=== PATIENT | female | born 1990 | race African-American/Black ===

== ENCOUNTER 2017-09-05 06:20 | Emergency (ER) | payer SELFPAY ==
--- NOTE | 2017-09-05 07:19 | ER ---
Nurse's Notes [facility] Name: Ember Clark Age: 26 yrs Sex: Female : 1990 Arrival Date: 09/05/2017 Time: : Bed 8 Private MD: Diagnosis: Viral infection, unspecified Presentation: 09/05 06:27 Presenting complaint: Patient states: productive cough and congestion x 3 days. aa1 Transition of care: patient was not received from another setting of care. Onset of symptoms was September 03, 2017. Care prior to arrival: None. 06:27 Method Of Arrival: Ambulatory aa1 06:27 Acuity: MIKKI 4 aa1 Triage Assessment: 06:28 General: Appears in no apparent distress. comfortable, Behavior is calm, cooperative, aa1 appropriate for age. 06:48 Pain: Complains of pain in chest pain with cough, throat pain, body aches. EENT: Nares ak1 are clear Throat is clear. Neuro: No deficits noted. Cardiovascular: No deficits noted. Respiratory: Reports cough that is productive, since Tuesday09/03/17. GI: No signs and/or symptoms were reported involving the gastrointestinal system. : No signs and/or symptoms were reported regarding the genitourinary system. Derm: No signs and/or symptoms reported regarding the dermatologic system. Musculoskeletal: Reports body aches. 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 - Social history:: Smoking status: Patient uses tobacco products, denies chronic smoking, but will smoke occasionally. Screenin:42 Abuse screen: Denies threats or abuse. Denies injuries from another. Nutritional ak1 screening: No deficits noted. Tuberculosis screening: No symptoms or risk factors identified. Fall Risk None identified. Assessment: 06:50 Reassessment: Patient appears in no apparent distress at this time. No changes from ak1 previously documented assessment. Patient is alert, oriented x 3, equal unlabored respirations, skin warm/dry/pink. see triage assessment. 07:04 Reassessment: report given to Rickey Tamez RN and Sis Fam RN. ak1 07:31 Reassessment: Patient appears in no apparent distress at this time. No changes from previously documented assessment. Patient and/or family updated on plan of care and expected duration. Pain level reassessed. Patient is alert, oriented x 3, equal unlabored respirations, skin warm/dry/pink. Vital Signs: 06:28 BP 120 / 87; Pulse 94; Resp 18; Temp 98.2; Pulse Ox 100% on R/A; Weight 56.7 kg; Height aa1 5 ft. 1 in. (154.94 cm); 07:32 BP 112 / 78; Pulse 88; Resp 18; Pulse Ox 99% ; sv 06:28 Body Mass Index 23.62 (56.70 kg, 154.94 cm) aa1 ED Course: 06:22 Patient arrived in ED. am2 06:27 [facility] Reyn[facility]-C [facility] snw 06:27 Yaw Petit MD is Attending Physician. snw 06:27 Triage completed. aa1 06:28 Arm band placed on left wrist. Patient placed in an exam room, on a stretcher. aa1 06:39 Chest Pa And Lat (2 Views) XRAY In Process Unspecified. EDMS 06:42 Patient has correct armband on for positive identification. Bed in low position. Call ak1 light in reach. Side rails up X 1. Pulse ox on. NIBP on. 06:45 Flu and/or RSV swab sent to lab. Strep swab sent to lab. ak1 06:47 No provider procedures requiring assistance completed. ak1 07:14 Sis Major RN is Primary Nurse. sv 07:15 Throat Culture Sent. sv 07:31 Patient did not have IV access during this emergency room visit. sv Administered Medications: No medications were administered Outcome: 07:18 Discharge ordered by MD. snw 07:32 Discharged to home ambulatory. sv 07:32 Condition: stable 07:32 Discharge instructions given to patient, Instructed on discharge instructions, follow up and referral plans. medication usage, Demonstrated understanding of instructions, follow-up care, medications, Prescriptions given X 2. 07:32 Patient left the ED. sv Signatures: Dispatcher [facility] Sis Major RN RN sv Gay, Steven, RN RN Lucy Jaramillo RN RN aa1 Iris Reynaga, CANCER REGISTRAR-C CANCER REGISTRAR-Csnw Janina Lemons RN RN ak1 Tawny Esquivel am2 Corrections: (The following items were deleted from the chart) 07:08 07:08 Reassessment: tristian lubin
--- NOTE | 2017-09-05 07:19 | EDPHYS ---
Physician Documentation [facility] Name: Ember Clark Age: 26 yrs Sex: Female : 1990 Arrival Date: 09/05/2017 Time: :22 Bed 8 Private MD: ED Physician Yaw Petit HPI: 09/05 06:30 This 26 yrs old Black Female presents to ER via Ambulatory with complaints of Cough, snw Chest Congestion, Chills. 06:30 The patient or guardian reports airway noise, cough, with productive sputum, that is snw yellow. Onset: The symptoms/episode began/occurred suddenly, 2 day(s) ago, and became persistent. Severity of symptoms: At their worst the symptoms were moderate. Associated signs and symptoms: Pertinent positives: chills. It is unknown whether or not the patient has had similar symptoms in the past. The patient has not recently seen a physician. flu like s/s, rec'd flu shot. 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 - Social history:: Smoking status: Patient uses tobacco products, denies chronic smoking, but will smoke occasionally. ROS: 06:29 Eyes: Negative for injury, pain, redness, and discharge, ENT: Negative for injury, snw pain, and discharge, Neck: Negative for injury, pain, and swelling, Cardiovascular: Negative for chest pain, palpitations, and edema. 06:29 Abdomen/GI: Negative for abdominal pain, nausea, vomiting, diarrhea, and constipation, Back: Negative for injury and pain, : Negative for injury, bleeding, discharge, and swelling, MS/Extremity: Negative for injury and deformity, Skin: Negative for injury, rash, and discoloration, Neuro: Negative for headache, weakness, numbness, tingling, and seizure. 06:29 Constitutional: Positive for body aches, chills, fatigue, malaise, poor PO intake. 06:29 Respiratory: Positive for cough, with yellow sputum. Exam: 06:29 Head/Face: Normocephalic, atraumatic. Eyes: Pupils equal round and reactive to light, snw extra-ocular motions intact. Lids and lashes normal. Conjunctiva and sclera are non-icteric and not injected. Cornea within normal limits. Periorbital areas with no swelling, redness, or edema. ENT: Nares patent. No nasal discharge, no septal abnormalities noted. Tympanic membranes are normal and external auditory canals are clear. Oropharynx with no redness, swelling, or masses, exudates, or evidence of obstruction, uvula midline. Mucous membranes moist. Neck: Trachea midline, no thyromegaly or masses palpated, and no cervical lymphadenopathy. Supple, full range of motion without nuchal rigidity, or vertebral point tenderness. No Meningismus. Chest/axilla: Normal chest wall appearance and motion. Nontender with no deformity. No lesions are appreciated. Cardiovascular: Regular rate and rhythm with a normal S1 and S2. No gallops, murmurs, or rubs. Normal PMI, no JVD. No pulse deficits. Respiratory: Lungs have equal breath sounds bilaterally, clear to auscultation and percussion. No rales, rhonchi or wheezes noted. No increased work of breathing, no retractions or nasal flaring. Abdomen/GI: Soft, non-tender, with normal bowel sounds. No distension or tympany. No guarding or rebound. No evidence of tenderness throughout. Back: No spinal tenderness. No costovertebral tenderness. Full range of motion. Skin: Warm, dry with normal turgor. Normal color with no rashes, no lesions, and no evidence of cellulitis. MS/ Extremity: Pulses equal, no cyanosis. Neurovascular intact. Full, normal range of motion. Neuro: Awake and alert, GCS 15, oriented to person, place, time, and situation. Cranial nerves II-XII grossly intact. Motor strength 5/5 in all extremities. Sensory grossly intact. Cerebellar exam normal. Normal gait. 06:29 Constitutional: The patient appears alert, awake, restless, uncomfortable, tearful Vital Signs: 06:28 BP 120 / 87; Pulse 94; Resp 18; Temp 98.2; Pulse Ox 100% on R/A; Weight 56.7 kg; Height aa1 5 ft. 1 in. (154.94 cm); 07:32 BP 112 / 78; Pulse 88; Resp 18; Pulse Ox 99% ; sv 06:28 Body Mass Index 23.62 (56.70 kg, 154.94 cm) aa1 MDM: 06:27 Patient medically screened. snw 07:19 Data reviewed: vital signs, nurses notes. Data interpreted: Pulse oximetry: on room air snw is 100 %. Interpretation: normal. Counseling: I had a detailed discussion with the patient and/or guardian regarding: the historical points, exam findings, and any diagnostic results supporting the discharge/admit diagnosis, the need for outpatient follow up, to return to the emergency department if symptoms worsen or persist or if there are any questions or concerns that arise at home. Counseling: I had a detailed discussion with the patient and/or guardian regarding: smoking cessation. Special discussion: I have referred the patient to see his PCP for further evaluation of high blood pressure. Based on the history and exam findings, there is no indication for further emergent testing or inpatient evaluation. I discussed with the patient/guardian the need to see the primary care provider for further evaluation of the symptoms. 07:19 Response to treatment: pt upset she is not getting pain medications upon discharge. snw 09/05 06:28 Order name: Flu; Complete Time: 07:17 snw 09/05 06:28 Order name: Strep; Complete Time: 07:17 snw 09/05 06:28 Order name: Chest Pa And Lat (2 Views) XRAY snw 09/05 07:14 Order name: Throat Culture EDMS Administered Medications: No medications were administered Disposition: 09/05/17 07:18 Discharged to Home. Impression: Viral infection, unspecified. - Condition is Stable. - Discharge Instructions: Fever, Adult, Viral Infections. - Prescriptions for Diclofenac Sodium 75 mg Oral Tablet Sustained Release - take 1 tablet by ORAL route 2 times per day; 30 tablet. orphenadrine citrate 100 mg Oral Tablet Sustained Release - take 1 tablet by ORAL route 2 times per day As needed; 20 tablet. - Work release form, Medication Reconciliation Form, Thank You Letter, Antibiotic Education, Prescription Opioid Use form. - Follow up: Private Physician; When: 2 - 3 days; Reason: Recheck today's complaints, Continuance of care, Re-evaluation by your physician. Follow up: Emergency Department; When: As needed; Reason: Worsening of condition. Addendum: 09/08/2017 02:51 Co-signature as Attending Physician, Yaw Petit MD. g s Signatures: Dispatcher [employer] Sis Tran RN RN sv Lucy Thomas RN RN aa1 Iris Reynaga, LITIGATION SPECIALIST-C LITIGATION SPECIALIST-Csnw Yaw Petit MD MD gs
[2017-09-05 07:38] VITALS: TEMP 98.2
[2017-09-05 07:39] VITALS: BP 112/78; O2SAT 99
--- NOTE | 2017-09-05 08:47 | RAD REPORT ---
EXAM DESCRIPTION: RAD - Chest Pa And Lat (2 Views) - 09/05/2017 6:40 am CLINICAL HISTORY: Productive cough and congestion COMPARISON: 05/11/2017 FINDINGS: The lungs are clear. The heart is normal in size. No displaced fractures. IMPRESSION: No acute or concerning finding suspected.
== END 2017-09-05 07:32 | disposition home or self-care (01) ==
LOC: ER 06:20
DX: B34.9 Viral infection, unspecified (principal); Z72.0 Tobacco use
CPT/HCPCS: 71046; 87070; 87081; 87804; 99284

== ENCOUNTER 2018-03-08 09:59 | Emergency (ER) | payer SELFPAY ==
--- NOTE | 2018-03-08 10:33 | EKG ---
Test Date: 2018-03-08 Test Time: 10:11:34 Director Media: BASIL MEASUREMENT RESULTS: Intervals: Rate: 74 [place]: 142 QRSD: 78 QT: 402 QTc: 446 [place]: P: 84 [place]: 142 QRS: 86 T: 75 INTERPRETIVE STATEMENTS: Normal sinus rhythm Right atrial enlargement Borderline ECG Compared to ECG 05/11/2017 08:39:11 Atrial abnormality now present Electronically Signed On 03-08-18 10:32:25 CDT by Noel Bauman
[2018-03-08 11:02] LABS: Urine Blood 1+ (NEG); Urine Glucose NEGATIVE (NEG); Urine Protein NEGATIVE (NEG); Urine pH 5.5 (5.0-7.0)
[2018-03-08] MEDS ORDERED: NA CHLORIDE 0.9% 1,000 ML ONE (11:04)
[2018-03-08] MEDS ORDERED: ONDANSETRON 4 MG/2 ML VIAL ONE (11:04)
[2018-03-08 11:17] LABS: BUN Blood Urea Nitrogen 12 mg/dL (7-18); Bicarbonate 27 mmol/L (21-32); Glucose Level 82 mg/dL (74-106); Potassium 3.5 mmol/L (3.5-5.1); Sodium Level 139 mmol/L (136-145)
--- NOTE | 2018-03-08 11:50 | EDPHYS ---
Physician Documentation [facility] Name: Ember Clark Age: 27 yrs Sex: Female : 1990 Arrival Date: 03/08/2018 Time: 10:01 Bed 7 Private MD: out of town, doctor ED Physician Gil Galindo HPI: 03/08 10:59 This 27 yrs old Black Female presents to ER via Ambulatory with complaints of Vomiting, rn Chest Pain, Headache. 10:59 The patient presents to the emergency department with nausea, vomiting, diarrhea. rn Onset: The symptoms/episode began/occurred 2 day(s) ago. Possible causes: unknown. The symptoms are aggravated by nothing. The symptoms are alleviated by nothing. Severity of symptoms: At their worst the symptoms were moderate in the emergency department the symptoms are unchanged. The patient has experienced a previous episode. Reports nausea/vomiting that began 2 days ago, now non-bloody diarrhea for 1 day, reports chills, fatigue, headache, no known sick contacts but works at [employer]. No fever. No trauma. Headache began today. . 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 - Social history:: Smoking status: Patient uses tobacco products, denies chronic smoking, but will smoke occasionally, Patient uses alcohol, occasionally. - Ebola Screening: : Patient negative for fever greater than or equal to 101.5 degrees Fahrenheit, and additional compatible Ebola Virus Disease symptoms Patient denies exposure to infectious person Patient denies travel to an Ebola-affected area in the 21 days before illness onset No symptoms or risks identified at this time. - Family history:: not pertinent. - Hospitalizations: : No recent hospitalization is reported. ROS: 10:59 Constitutional: Negative for fever, and weight loss, Eyes: Negative for injury, pain, rn redness, and discharge, Neck: Negative for injury, pain, and swelling, Cardiovascular: Negative for chest pain, palpitations, and edema, Respiratory: Negative for shortness of breath, cough, wheezing, and pleuritic chest pain, Abdomen/GI: Negative for abdominal pain, and constipation, MS/Extremity: Negative for injury and deformity, Skin: Negative for injury, rash, and discoloration, Neuro: Negative for numbness, tingling, and seizure. Exam: 10:59 Constitutional: This is a well developed, well nourished patient who is awake, alert, rn and in no acute distress. Head/Face: Normocephalic, atraumatic. Eyes: Pupils equal round and reactive to light, extra-ocular motions intact. Lids and lashes normal. Conjunctiva and sclera are non-icteric and not injected. Cornea within normal limits. Periorbital areas with no swelling, redness, or edema. ENT: MMM Neck: Non-tender cervical LAD Cardiovascular: Regular rate and rhythm with a normal S1 and S2. No gallops, murmurs, or rubs. Normal PMI, no JVD. No pulse deficits. Respiratory: Lungs have equal breath sounds bilaterally, clear to auscultation and percussion. No rales, rhonchi or wheezes noted. No increased work of breathing, no retractions or nasal flaring. Abdomen/GI: soft, non-tender Skin: Warm, dry with normal turgor. Normal color with no rashes, no lesions, and no evidence of cellulitis. MS/ Extremity: Pulses equal, no cyanosis. Neurovascular intact. Full, normal range of motion. Equal circumference. Neuro: Awake and alert, GCS 15, oriented to person, place, time, and situation. Cranial nerves II-XII grossly intact. Motor strength 5/5 in all extremities. Sensory grossly intact. Cerebellar exam normal. Normal gait. Vital Signs: 10:09 BP 127 / 82; Pulse 98; Resp 18; Temp 97.9; Pulse Ox 100% on R/A; Weight 58.97 kg; aj Height 5 ft. 1 in. (154.94 cm); 11:00 BP 131 / 87; Pulse 55; Resp 14; Pulse Ox 100% ; bp 11:21 BP 131 / 88; Pulse 55; Resp 16; Pulse Ox 100% ; bp 11:38 BP 128 / 89; Pulse 51; Resp 14; Pulse Ox 100% ; bp 10:09 Body Mass Index 24.56 (58.97 kg, 154.94 cm) aj MDM: 10:40 Patient medically screened. rn 11:48 Differential diagnosis: viral gastroenteritis, gastroenteritis, mono, flu, strep. Data rn reviewed: vital signs, nurses notes, lab test result(s), and as a result, I will discharge patient. Counseling: I had a detailed discussion with the patient and/or guardian regarding: the historical points, exam findings, and any diagnostic results supporting the discharge/admit diagnosis, lab results, the need for outpatient follow up, to return to the emergency department if symptoms worsen or persist or if there are any questions or concerns that arise at home. Response to treatment: the patient's symptoms have mildly improved after treatment, and as a result, I will discharge patient. Special discussion: I discussed with the patient/guardian in detail that at this point there is no indication for admission to the hospital. It is understood, however, that if the symptoms persist or worsen the patient needs to return immediately for re-evaluation. 03/08 10:13 Order name: Flu; Complete Time: 11:23 aj 03/08 10:13 Order name: Strep; Complete Time: 11:23 aj 03/08 10:36 Order name: Throat Culture EDSC 03/08 10:46 Order name: BMP; Complete Time: 11:23 rn 03/08 10:46 Order name: [place] Screen Profile; Complete Time: 11:43 rn 03/08 10:53 Order name: Urine Dipstick--Ancillary (enter results); Complete Time: 11:23 eb 03/08 10:07 Order name: EKG; Complete Time: 10:08 aj 03/08 10:45 Order name: IV Start; Complete Time: 10:54 rn 03/08 10:46 Order name: Urine Test (obtain specimen); Complete Time: 10:53 rn 03/08 10:46 Order name: Urine Dipstick-Ancillary (obtain specimen); Complete Time: 10:53 rn 03/08 10:53 Order name: Urine --Ancillary (enter results); Complete Time: 11:23 eb Administered Medications: 11:00 Drug: NS 0.9% 1000 ml Route: IV; Rate: 1000 ml; Site: right antecubital; bp 11:59 Follow up: IV Status: Completed infusion; IV Intake: 1000ml bp 11:00 Drug: Zofran 4 mg Route: IVP; Site: right antecubital; bp 11:21 Follow up: Response: No adverse reaction bp Disposition: 03/08/18 11:49 Discharged to Home. Impression: Infectious mononucleosis. - Condition is Stable. - Discharge Instructions: Infectious Mononucleosis. - Medication Reconciliation Form, Thank You Letter, Antibiotic Education, Prescription Opioid Use, Work release form form. - Follow up: Private Physician; When: As needed; Reason: Recheck today's complaints, Re-evaluation by your physician. - Problem is new. - Symptoms have improved. Signatures: Dispatcher [employer] Tawny Smith RN Gil Vaughn MD MD rn Peltier, Brian, RN RN bp Corrections: (The following items were deleted from the chart) 11:58 11:49 03/08/2018 11:49 Discharged to Home. Impression: Infectious mononucleosis. bp Condition is Stable. Forms are Medication Reconciliation Form, Thank You Letter, Antibiotic Education, Prescription Opioid Use. Follow up: Private Physician; When: As needed; Reason: Recheck today's complaints, Re-evaluation by your physician. Problem is new. Symptoms have improved. rn
--- NOTE | 2018-03-08 11:50 | ER ---
Nurse's Notes [facility] Name: Ember Clark Age: 27 yrs Sex: Female : 1990 Arrival Date: 03/08/2018 Time: 10:01 Bed 7 Private MD: out of town, doctor Diagnosis: Infectious mononucleosis Presentation: 03/08 10:08 Presenting complaint: Patient states: Vomiting x 4 episodes, chills, chest pain, and aj headache that started today. Transition of care: patient was not received from another setting of care. Onset of symptoms was March 08, 2018. Risk Assessment: Do you want to hurt yourself or someone else? Patient reports no desire to harm self or others. Initial Sepsis Screen: Does the patient meet any 2 criteria? No. Patient's initial sepsis screen is negative. Does the patient have a suspected source of infection? No. Patient's initial sepsis screen is negative. Care prior to arrival: None. 10:08 Method Of Arrival: Ambulatory aj 10:08 Acuity: MIKKI 3 aj Triage Assessment: 10:09 General: Appears in no apparent distress. comfortable, Behavior is calm, cooperative, aj appropriate for age. Pain: Complains of pain in face and chest. Neuro: Level of Consciousness is awake, alert, obeys commands, Oriented to person, place, time, situation, Appropriate for age. Cardiovascular: Reports chest pain, vomiting, Capillary refill < 3 seconds in bilateral fingers Patient's skin is warm and dry. Respiratory: Airway is patent Trachea midline Respiratory effort is even, unlabored. GI: Reports nausea, vomiting. Derm: Skin is intact, is healthy with good turgor, Skin is pink, warm \T\ dry. normal. 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 - Social history:: Smoking status: Patient uses tobacco products, denies chronic smoking, but will smoke occasionally, Patient uses alcohol, occasionally. - Ebola Screening: : Patient negative for fever greater than or equal to 101.5 degrees Fahrenheit, and additional compatible Ebola Virus Disease symptoms Patient denies exposure to infectious person Patient denies travel to an Ebola-affected area in the 21 days before illness onset No symptoms or risks identified at this time. - Family history:: not pertinent. - Hospitalizations: : No recent hospitalization is reported. Screenin:04 Abuse screen: Denies threats or abuse. Denies injuries from another. Nutritional bp screening: No deficits noted. Tuberculosis screening: No symptoms or risk factors identified. Fall Risk None identified. Assessment: 10:10 General: Appears in no apparent distress. comfortable, slender, Behavior is bp cooperative, appropriate for age, anxious. Pain: Complains of pain in chest and face. Neuro: Level of Consciousness is awake, alert, obeys commands, Oriented to person, place, time, situation, Appropriate for age. Cardiovascular: No deficits noted. Respiratory: Airway is patent Respiratory effort is even, unlabored, Respiratory pattern is regular, symmetrical. GI: Reports nausea, vomiting. GI: Abdomen is non-distended, Abd is soft X 4 quads. : No signs and/or symptoms were reported regarding the genitourinary system. EENT: No deficits noted. Derm: No signs and/or symptoms reported regarding the dermatologic system. Musculoskeletal: Circulation, motion, and sensation intact. Range of motion: intact in all extremities. 11:21 Reassessment: ALL CURRENT ORDERS COMPLETED, VS STABLE ON MONITOR. bp 11:57 Reassessment: PT D/C HOME AMBULATORY, DX WITH MONONUCLEOSIS. bp Vital Signs: 10:09 BP 127 / 82; Pulse 98; Resp 18; Temp 97.9; Pulse Ox 100% on R/A; Weight 58.97 kg; aj Height 5 ft. 1 in. (154.94 cm); 11:00 BP 131 / 87; Pulse 55; Resp 14; Pulse Ox 100% ; bp 11:21 BP 131 / 88; Pulse 55; Resp 16; Pulse Ox 100% ; bp 11:38 BP 128 / 89; Pulse 51; Resp 14; Pulse Ox 100% ; bp 10:09 Body Mass Index 24.56 (58.97 kg, 154.94 cm) aj ED Course: 10:01 Patient arrived in ED. mr 10:01 out of town, doctor is Private Physician. mr 10:09 Triage completed. aj 10:09 Arm band placed on left wrist. Patient placed in waiting room, Patient notified of wait aj time. EKG completed in triage. Results shown to MD. Labs ordered per protocol. 10:16 EKG done, by certified control systems technician. reviewed by Gil Galindo MD. at1 10:31 Bryan Bower RN is Primary Nurse. bp 10:40 Gil Galindo MD is Attending Physician. rn 10:47 Throat Culture Sent. bp 10:50 Inserted saline lock: 20 gauge in right antecubital area, using aseptic technique. bp 10:52 Urine collected: clean catch specimen, clear. dh3 11:04 Patient has correct armband on for positive identification. Bed in low position. Call bp light in reach. Side rails up X2. 11:58 No provider procedures requiring assistance completed. IV discontinued, intact, bp bleeding controlled, No redness/swelling at site. Pressure dressing applied. Administered Medications: 11:00 Drug: NS 0.9% 1000 ml Route: IV; Rate: 1000 ml; Site: right antecubital; bp 11:59 Follow up: IV Status: Completed infusion; IV Intake: 1000ml bp 11:00 Drug: Zofran 4 mg Route: IVP; Site: right antecubital; bp 11:21 Follow up: Response: No adverse reaction bp Intake: 11:59 IV: 1000ml; Total: 1000ml. bp Outcome: 11:49 Discharge ordered by MD. rn 11:58 Discharged to home ambulatory. bp 11:58 Condition: stable 11:58 Discharge instructions given to patient, Instructed on discharge instructions, follow up and referral plans. Demonstrated understanding of instructions, follow-up care. 11:58 Patient left the ED. bp Signatures: Tawny Mcclendon RN Vanessa Allison mr Gil Galindo MD MD rn Gonzales, Amanda, interactive developer EKG Tat1 Alma Ragland [facility] Bryan Bower, RN RN bp
[2018-03-08 12:08] VITALS: TEMP 97.9; O2SAT 100
[2018-03-08 12:12] VITALS: BP 128/89
== END 2018-03-08 11:58 | disposition home or self-care (01) ==
LOC: ER 09:59
DX: B27.90 Infectious mononucleosis, unspecified without complication (principal); Z72.0 Tobacco use
CPT/HCPCS: 36415; 80048; 81003; 81025; 86308; 87070; 87081; 87804; 93005; 96361; 96374; 99284; J2405; J7030

== ENCOUNTER 2018-03-17 07:15 | Emergency (ER) | payer SELFPAY ==
[2018-03-17] MEDS ORDERED: IBUPROFEN 400 MG TAB ONE (07:46)
[2018-03-17 07:50] LABS: Absolute Lymphocytes (CBC) 1.5 K/uL (0.7-4.9); Absolute Monocytes 0.4 K/uL (0.1-1.3); Absolute Neutrophil 2.8 K/uL (1.8-8.0); Basophils % 1.5 % (0-1.3); Eosinophils % 1.7 % (0-4.4); Hematocrit 36.6 % (36.0-45.0); Lymphocytes % 30.1 % (15.3-44.8); MCH 21.5 pg (27.0-35.0); MCV 69.6 fL (80-100); MPV 8.9 fL (7.6-11.3); Monocytes % 9.3 % (3.3-12.3); RBC Red Blood Cell Count 5.25 M/uL (3.86-4.86)
[2018-03-17 08:07] LABS: BUN Blood Urea Nitrogen 16 mg/dL (7-18); Bicarbonate 29 mmol/L (21-32); Glucose Level 169 mg/dL (74-106); Potassium 3.2 mmol/L (3.5-5.1); Sodium Level 134 mmol/L (136-145); Troponin (Emerg Dept Use Only) < 0.02 ng/mL (0.0-0.045)
--- NOTE | 2018-03-17 09:07 | RAD REPORT ---
EXAM DESCRIPTION: RAD - Chest Single View - 03/17/2018 8:01 am CLINICAL HISTORY: Chest pain COMPARISON: August 2017 TECHNIQUE: AP portable chest image was obtained 0754 hours . FINDINGS: Lungs are clear. Heart and vasculature are normal. No measurable pleural effusion and no p neumothorax. No acute bony abnormality seen. No acute aortic findings suspected. IMPRESSION: No acute cardiopulmonary process. No significant change from comparison.
[2018-03-17] MEDS ORDERED: POTASSIUM CL SA 10 MEQ TAB PO ONE (09:10)
--- NOTE | 2018-03-17 09:12 | ER ---
Nurse's Notes [facility] Name: Ember Clark Age: 27 yrs Sex: Female : 1990 Arrival Date: 03/17/2018 Time: 07:20 Bed 17 Private MD: None, None Diagnosis: Chest pain, unspecified Presentation: 03/17 07:28 Presenting complaint: Patient states: Chest tightness and MUNIZ, worse since Tuesday. jl7 Transition of care: patient was not received from another setting of care. Onset of symptoms was March 14, 2018. Risk Assessment: Do you want to hurt yourself or someone else? Patient reports no desire to harm self or others. Initial Sepsis Screen: Does the patient meet any 2 criteria? No. Patient's initial sepsis screen is negative. Does the patient have a suspected source of infection? No. Patient's initial sepsis screen is negative. Care prior to arrival: None. 07:28 Method Of Arrival: Ambulatory [facility] 07:28 Acuity: MIKKI 3 jl7 Triage Assessment: 07:32 General: Appears in no apparent distress. uncomfortable, Behavior is cooperative, jl7 anxious. Pain: Complains of pain in chest \\T\\ MUNIZ Pain currently is 10 out of 10 on a pain scale. Quality of pain is described as pressure, sharp, Is intermittent. EENT: No signs and/or symptoms were reported regarding the EENT system. Neuro: Level of Consciousness is awake, alert, obeys commands, Oriented to person, place, time, situation. Cardiovascular: Heart tones S1 S2 present Patient's skin is warm and dry. Respiratory: Airway is patent Respiratory effort is even, unlabored, Respiratory pattern is regular, symmetrical. GI: No signs and/or symptoms were reported involving the gastrointestinal system. : No signs and/or symptoms were reported regarding the genitourinary system. Derm: Skin is pink, warm \\T\\ dry. Musculoskeletal: No signs and/or symptoms reported regarding the musculoskeletal system. 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 - Ebola Screening: : No symptoms or risks identified at this time. - Family history:: not pertinent. - Social history:: Smoking status: Patient/guardian denies using tobacco. - Hospitalizations: : No recent hospitalization is reported. Screenin:36 Abuse screen: Denies threats or abuse. Denies injuries from another. Nutritional jl7 screening: No deficits noted. Tuberculosis screening: No symptoms or risk factors identified. Fall Risk IV access (20 points). Total Aldridge Fall Scale indicates No Risk (0-24 pts). Assessment: 07:35 General: Appears See Triage assessment. Pain: Complains of pain in chest Pain does not jl7 radiate. Pain began a week or two ago. 07:41 Reassessment: Pt states "There's no baby in there, I had my tubes tied." Provider jl7 notified and UPT cancelled. 08:30 Reassessment: Patient appears in no apparent distress at this time. Patient and/or jl7 family updated on plan of care and expected duration. Pain level reassessed. Patient is alert, oriented x 3, equal unlabored respirations, skin warm/dry/pink. Vital Signs: 07:32 BP 127 / 91; Pulse 73; Resp 18 S; Temp 98.3(O); Pulse Ox 100% on R/A; Weight 58.51 kg jl7 (R); Pain 10/10; 08:30 BP 120 / 83; Pulse 70; Resp 14 S; Pulse Ox 100% on R/A; jl7 09:22 BP 120 / 82; Pulse 72; Resp 16 S; Pulse Ox 100% on R/A; jl7 ED Course: 07:20 Patient arrived in ED. mr 07:20 None, None is Private Physician. mr 07:22 Gil Galindo MD is Attending Physician. rn 07:28 Ifrah Manrique RN is Primary Nurse. jl7 07:29 Triage completed. jl7 07:32 Arm band placed on right wrist. jl7 07:36 Patient has correct armband on for positive identification. Bed in low position. Call jl7 light in reach. Side rails up X 1. assembly machine feeder on. Pulse ox on. NIBP on. Warm blanket given. 07:36 No provider procedures requiring assistance completed. Patient maintains SpO2 jl7 saturation greater than 95% on room air. 07:41 Initial lab(s) drawn, by me, sent to lab. Inserted saline lock: 22 gauge in right dh3 antecubital area, using aseptic technique. Blood collected. 07:47 EKG done, by agricultural engineering technologist. reviewed by Gil Galindo MD. at1 07:58 X-ray completed. Portable x-ray completed in exam room. Patient tolerated procedure jb2 well. 08:01 XRAY Chest (1 view) In Process Unspecified. EDMS 09:22 IV discontinued, intact, bleeding controlled, No redness/swelling at site. Pressure jl7 dressing applied. Administered Medications: 07:41 Drug: Ibuprofen 800 mg Route: PO; jl7 08:30 Follow up: Response: No adverse reaction jl7 09:09 Drug: Potassium Chloride 40 mEq Route: PO; em 09:22 Follow up: Response: No adverse reaction jl7 Outcome: 09:11 Discharge ordered by . rn 09:22 Discharged to home ambulatory. jl7 09:22 Condition: stable 09:22 Discharge instructions given to patient, Instructed on discharge instructions, follow up and referral plans. Demonstrated understanding of instructions, follow-up care. 09:23 Patient left the ED. jl7 Signatures: Dispatcher [employer] KACEY McmahonVanessa constantino mr CaJacob jb2 Juanito Kulkarni, RECYCLING ASSISTANT RECYCLING ASSISTANT Gil Frias MD MD rn Gonzales, Amanda, search marketing specialist EKG Tat1 Ifrah Manrique RN RN jl7 Alma Ragland [facility]
--- NOTE | 2018-03-17 09:12 | EDPHYS ---
Physician Documentation [facility] Name: Ember Clark Age: 27 yrs Sex: Female : 1990 Arrival Date: 03/17/2018 Time: 07:20 Bed 17 Private MD: None, None ED Physician Gil Galindo HPI: 03/17 07:31 This 27 yrs old Black Female presents to ER via Ambulatory with complaints of Chest rn Tightness, Headache. 07:31 The patient or guardian reports chest pain that is located primarily in the substernal rn area. The pain does not radiate. Associated signs and symptoms: Pertinent positives: headache, Pertinent negatives: abdominal pain, cough, diaphoresis, dizziness, lightheadedness, nausea, near syncope, palpitations, recent travel, shortness of breath, syncope, vomiting. The chest pain is described as a heaviness, sharp. Duration: The patient or guardian reports multiple episodes, that are intermittent. Modifying factors: The symptoms are alleviated by nothing. the symptoms are aggravated by nothing. Severity of pain: At its worst the pain was moderate in the emergency department the pain is unchanged. The patient has experienced similar episodes in the past. Reports chest pain, intermittent, central, feels daily, has been seen multiple times for this in past, no diagnosis, hasn't followed up with cardiology. No fever/cough. + recent diagnosis of mono, + headache. Just seen by DEPUTY SHERIFF GENERALIST/BAILIFF this week, started on amlodipine. Reports tested and neg preg. . 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 - Ebola Screening: : No symptoms or risks identified at this time. - Family history:: not pertinent. - Social history:: Smoking status: Patient/guardian denies using tobacco. - Hospitalizations: : No recent hospitalization is reported. ROS: 07:31 Constitutional: Negative for fever, chills, and weight loss, Eyes: Negative for injury, rn pain, redness, and discharge, Cardiovascular: Negative for palpitations, and edema Respiratory: Negative for shortness of breath, cough, wheezing, and pleuritic chest pain, Abdomen/GI: Negative for abdominal pain, nausea, vomiting, diarrhea, and constipation, MS/Extremity: Negative for injury and deformity, Skin: Negative for injury, rash, and discoloration, Neuro: Negative for weakness, numbness, tingling, and seizure. Exam: 07:31 Constitutional: This is a well developed, well nourished patient who is awake, alert, rn and in no acute distress. Walked to room without difficulty. Head/Face: Normocephalic, atraumatic. Eyes: Pupils equal round and reactive to light, extra-ocular motions intact. Lids and lashes normal. Conjunctiva and sclera are non-icteric and not injected. Cornea within normal limits. Periorbital areas with no swelling, redness, or edema. Cardiovascular: Regular rate and rhythm with a normal S1 and S2. No gallops, murmurs, or rubs. Normal PMI, no JVD. No pulse deficits. Respiratory: Lungs have equal breath sounds bilaterally, clear to auscultation and percussion. No rales, rhonchi or wheezes noted. No increased work of breathing, no retractions or nasal flaring. Abdomen/GI: Soft, non-tender, with normal bowel sounds. No distension or tympany. No guarding or rebound. No evidence of tenderness throughout. Skin: Warm, dry with normal turgor. Normal color with no rashes, no lesions, and no evidence of cellulitis. MS/ Extremity: Pulses equal, no cyanosis. Neurovascular intact. Full, normal range of motion. Equal circumference. Neuro: Awake and alert, GCS 15, oriented to person, place, time, and situation. Cranial nerves II-XII grossly intact. Motor strength 5/5 in all extremities. Sensory grossly intact. Cerebellar exam normal. Normal gait. 09:09 ECG was reviewed by the Attending Physician. rn Vital Signs: 07:32 BP 127 / 91; Pulse 73; Resp 18 S; Temp 98.3(O); Pulse Ox 100% on R/A; Weight 58.51 kg jl7 (R); Pain 10/10; 08:30 BP 120 / 83; Pulse 70; Resp 14 S; Pulse Ox 100% on R/A; jl7 09:22 BP 120 / 82; Pulse 72; Resp 16 S; Pulse Ox 100% on R/A; jl7 MDM: 07:22 Patient medically screened. rn 09:09 Differential diagnosis: acute pericarditis, anxiety, chest wall pain, costochondritis, rn esophagitis, gastritis, gastroesophageal reflux disease (GERD), pleurisy, pneumothorax. Data reviewed: vital signs, nurses notes, lab test result(s), EKG, radiologic studies, plain films, and as a result, I will discharge patient. Counseling: I had a detailed discussion with the patient and/or guardian regarding: the historical points, exam findings, and any diagnostic results supporting the discharge/admit diagnosis, lab results, radiology results, the need for outpatient follow up, to return to the emergency department if symptoms worsen or persist or if there are any questions or concerns that arise at home. Special discussion: Based on the patient's history, exam, and Dx evaluation, there is no indication for emergent intervention or inpatient Tx. It is understood by the patient/guardian that if the Sx's persist or worsen they need to return immediately for re-evaluation. I discussed with the patient/guardian in detail that at this point there is no indication for admission to the hospital. It is understood, however, that if the symptoms persist or worsen the patient needs to return immediately for re-evaluation. ED course: W/u here negative once again, urged pt to f/u with cardiology for ECHO and further eval given young and female, to be evaluated for arrythmia and MVP.. 03/17 07:31 Order name: CBC with Diff rn 03/17 07:31 Order name: Basic Metabolic Panel; Complete Time: 08:54 rn 03/17 07:31 Order name: Troponin (emerg Dept Use Only); Complete Time: 08:54 rn 03/17 07:31 Order name: XRAY Chest (1 view); Complete Time: 09:09 rn 03/17 08:05 Order name: CBC Smear Scan EDMS 03/17 07:31 Order name: IV Start; Complete Time: 07:41 rn 03/17 07:31 Order name: EKG; Complete Time: 07:32 rn 03/17 07:31 Order name: EKG - Nurse/Tech; Complete Time: 07:32 rn EC:09 Rate is 82 beats/min. Rhythm is regular. QRS [place] is Normal. VT interval is normal. QRS rn interval is normal. QT interval is normal. No Q waves. T waves are Normal. No ST changes noted. Clinical impression: Normal ECG. Interpreted by me. Administered Medications: 07:41 Drug: Ibuprofen 800 mg Route: PO; jl7 08:30 Follow up: Response: No adverse reaction jl7 09:09 Drug: Potassium Chloride 40 mEq Route: PO; em 09:22 Follow up: Response: No adverse reaction jl7 Disposition: 03/17/18 09:11 Discharged to Home. Impression: Chest pain, unspecified. - Condition is Stable. - Discharge Instructions: Nonspecific Chest Pain. - Medication Reconciliation Form, Thank You Letter, Antibiotic Education, Prescription Opioid Use, Work release form form. - Follow up: Private Physician; When: As needed; Reason: Recheck today's complaints, Re-evaluation by your physician. - Problem is new. - Symptoms have improved. Signatures: Dispatcher [employer] EDWV Juanito Kulkarni, SHELTERED WORKSHOP EXECUTIVE DIRECTOR SHELTERED WORKSHOP EXECUTIVE DIRECTOR Gil Frias MD MD rn Leal, Jahala, RN RN jl7 Corrections: (The following items were deleted from the chart) 07:36 07:31 Constitutional: Negative for fever, chills, and weight loss, Eyes: Negative for rn injury, pain, redness, and discharge, Cardiovascular: Negative for chest pain, palpitations, and edema, Respiratory: Negative for shortness of breath, cough, wheezing, and pleuritic chest pain, Abdomen/GI: Negative for abdominal pain, nausea, vomiting, diarrhea, and constipation, rn 07:41 07:31 Urine Test ordered. rn jl7 09:23 09:11 03/17/2018 09:11 Discharged to Home. Impression: Chest pain, unspecified. jl7 Condition is Stable. Forms are Work release form, Medication Reconciliation Form, Thank You Letter, Antibiotic Education, Prescription Opioid Use. Follow up: Private Physician; When: As needed; Reason: Recheck today's complaints, Re-evaluation by your physician. Problem is new. Symptoms have improved. rn
[2018-03-17 09:29] VITALS: TEMP 98.3; O2SAT 100
[2018-03-17 09:31] VITALS: BP 120/82
[2018-03-17 09:32] LABS: Blood Morphology Comment NOTED (NOT SEEN); Platelet Estimate ADEQ; Urine White Blood Cell Casts OK
[2018-03-17 09:33] LABS: Anisocytosis 1+; Hypochromasia 1+
--- NOTE | 2018-03-17 13:47 | EKG ---
Test Date: 2018-03-17 Test Time: 07:33:03 Camera Storage Clerk: PORTER MEASUREMENT RESULTS: Intervals: Rate: 82 DC: 142 QRSD: 82 QT: 404 QTc: 472 [place]: P: 79 DC: 142 QRS: 78 T: 51 INTERPRETIVE STATEMENTS: Normal sinus rhythm Normal ECG Compared to ECG 03/08/2018 10:11:34 Atrial abnormality no longer present Electronically Signed On 03-17-18 13:45:40 CDT by Luis Manuel Spain
== END 2018-03-17 09:23 | disposition home or self-care (01) ==
LOC: ER 07:15
DX: R07.9 Chest pain, unspecified (principal); I10 Essential (primary) hypertension
CPT/HCPCS: 36415; 71045; 80048; 84484; 85025; 93005; 99285

== ENCOUNTER 2018-07-27 07:36 | Emergency (ER) | payer SELFPAY ==
[2018-07-27] MEDS ORDERED: KETOROLAC 30 MG/ML INJ ONE (08:10)
[2018-07-27] MEDS ORDERED: ONDANSETRON 4 MG/2 ML VIAL ONE (08:10)
[2018-07-27] MEDS ORDERED: NA CHLORIDE 0.9% 1,000 ML ONE (08:10)
[2018-07-27 08:12] LABS: Absolute Lymphocytes (CBC) 1.3 K/uL (0.7-4.9); Absolute Monocytes 0.3 K/uL (0.1-1.3); Absolute Neutrophil 2.3 K/uL (1.8-8.0); Basophils % 1.7 % (0-1.3); Eosinophils % 1.6 % (0-4.4); Hematocrit 29.6 % (36.0-45.0); Lymphocytes % 31.6 % (15.3-44.8); MPV 8.5 fL (7.6-11.3); Monocytes % 8.3 % (3.3-12.3); RBC Red Blood Cell Count 4.45 M/uL (3.86-4.86)
[2018-07-27 08:28] LABS: Protime INR 1.15
[2018-07-27 08:38] LABS: ALT/SGPT 23 U/L (12-78); AST/SGOT 19 U/L (15-37); Albumin 3.8 g/dL (3.4-5.0); Alkaline Phosphatase 57 U/L (45-117); BUN Blood Urea Nitrogen 13 mg/dL (7-18); Bicarbonate 26 mmol/L (21-32); Bilirubin Direct 0.2 mg/dL (0-0.2); Glucose Level 112 mg/dL (74-106); Magnesium 1.9 mg/dL (1.8-2.4); NT PRO-BNP 13 pg/mL (<125); Potassium 3.4 mmol/L (3.5-5.1); Protein, Total 7.5 g/dL (6.4-8.2); Sodium Level 142 mmol/L (136-145); Troponin (Emerg Dept Use Only) < 0.02 ng/mL (0.0-0.045)
[2018-07-27 09:27] LABS: Anisocytosis 1+; Blood Morphology Comment NOTED (NOT SEEN); Hypochromasia 1+; Platelet Estimate ADEQ; Platelets, Giant FEW
[2018-07-27 10:09] LABS: Urine Blood 2+ (NEG); Urine Glucose NEGATIVE (NEG); Urine Protein 1+ (NEG); Urine Specific Gravity 1.015 (1.005-1.030)
--- NOTE | 2018-07-27 10:23 | RAD REPORT ---
EXAM DESCRIPTION: RAD - Chest Single View - 07/27/2018 9:33 am CLINICAL HISTORY: Chest pain, shortness of breath COMPARISON: February 2018 TECHNIQUE: AP portable chest image was obtained 0927 hours . FINDINGS: Lungs are clear. Heart and vasculature are normal. No measurable pleural effusion and no p neumothorax. No acute bony abnormality seen. No acute aortic findings suspected. IMPRESSION: No acute cardiopulmonary process. No significant interval change.
--- NOTE | 2018-07-27 10:24 | RAD REPORT ---
EXAM DESCRIPTION: RAD - Wrist Left 3 View - 07/27/2018 9:33 am CLINICAL HISTORY: Wrist pain, no trauma history specified COMPARISON: March 2013 FINDINGS: No fracture is identified. There is no dislocation or periosteal reaction noted. No joint space narrowing, spurring or erosive change. No foreign body or other soft tissue abnormality. No si gnificant change from comparison. IMPRESSION: Negative left wrist examination.
[2018-07-27] MEDS ORDERED: CODEINE 30MG/APAP 300MG TAB ONE (10:31)
--- NOTE | 2018-07-27 10:46 | ER ---
Nurse's Notes [facility] Name: Ember Clark Age: 27 yrs Sex: Female : 1990 Arrival Date: 07/27/2018 Time: 07:37 Bed 6 Private MD: Diagnosis: Chest pain on breathing;Chest pain, unspecified;Pain in left wrist Presentation: 07/27 07:46 Presenting complaint: Patient states: Chest pain starting at approximately 00:00. pc1 Stated that she was sleeping when the pain started. Described as sharp pain. Reports shortness of breath. Transition of care: patient was not received from another setting of care. Onset of symptoms was July 27, 2018 at 00:00. Risk Assessment: Do you want to hurt yourself or someone else? Patient reports no desire to harm self or others. Initial Sepsis Screen: Does the patient meet any 2 criteria? HR > 90 bpm. No. Patient's initial sepsis screen is negative. Does the patient have a suspected source of infection? No. Patient's initial sepsis screen is negative. Care prior to arrival: None. 07:46 Method Of Arrival: Ambulatory pc1 07:46 Acuity: MIKKI 3 hj Triage Assessment: 07:50 General: Appears distressed, uncomfortable, Behavior is calm, cooperative. Pain: pc1 Complains of pain in chest Pain does not radiate. Pain currently is 10 out of 10 on a pain scale. Quality of pain is described as sharp, Is continuous. Cardiovascular: Reports chest pain, lightheadedness, shortness of breath, Patient's skin is warm and dry. Chest pain. Respiratory: Breath sounds are clear bilaterally. 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 - Social history:: Smoking status: Patient/guardian denies using tobacco, Patient/guardian denies using alcohol, street drugs, IV drugs. - Ebola Screening: : Patient negative for fever greater than or equal to 101.5 degrees Fahrenheit, and additional compatible Ebola Virus Disease symptoms Patient denies exposure to infectious person Patient denies travel to an Ebola-affected area in the 21 days before illness onset. Screenin:46 Abuse screen: Denies threats or abuse. Denies injuries from another. Nutritional hj screening: No deficits noted. Tuberculosis screening: No symptoms or risk factors identified. Fall Risk None identified. Assessment: 08:07 Pain: Pain began last night. hj 08:07 General: Appears in no apparent distress. uncomfortable, Behavior is calm, cooperative, hj appropriate for age. Pain: Complains of pain in chest. Pain: Pain currently is 10 out of 10 on a pain scale. Neuro: Level of Consciousness is awake, alert, obeys commands, Oriented to person, place, time, situation, Appropriate for age. Cardiovascular: Capillary refill < 3 seconds Patient's skin is warm and dry. Respiratory: Airway is patent Respiratory effort is even, unlabored, Respiratory pattern is regular, symmetrical. GI: No signs and/or symptoms were reported involving the gastrointestinal system. : No signs and/or symptoms were reported regarding the genitourinary system. EENT: No signs and/or symptoms were reported regarding the EENT system. Derm: No signs and/or symptoms reported regarding the dermatologic system. Musculoskeletal: No signs and/or symptoms reported regarding the musculoskeletal system. 08:38 Reassessment: Patient is alert, oriented x 3, equal unlabored respirations, skin pc1 warm/dry/pink. Patient states feeling better. Pain: Complains of pain in chest Pain does not radiate. Pain currently is 7 out of 10 on a pain scale. Quality of pain is described as sharp, Alleviated by nothing. Aggravated by increased activity. 09:51 Reassessment: Patient and/or family updated on plan of care and expected duration. Pain pc1 level reassessed. Patient is alert, oriented x 3, equal unlabored respirations, skin warm/dry/pink. Patient denies pain at this time. Patient states feeling better. Patient states symptoms have improved. General: Appears in no apparent distress. comfortable, Behavior is calm, cooperative, quiet. Pain: Denies pain. Respiratory: Breath sounds are clear bilaterally. 10:20 Reassessment: pt pressed staff assist button, states, chest pain is back, non radiating hj 10/10, MD tory notified with verbal orders;. 10:23 Pain: Complains of pain in chest Pain does not radiate. Pain currently is 10 out of 10 pc1 on a pain scale. Quality of pain is described as sharp. Cardiovascular: Capillary refill < 3 seconds Patient's skin is warm and dry. Respiratory: Breath sounds are clear bilaterally. Vital Signs: 07:46 BP 114 / 84; Pulse 89; Resp 18; Temp 99.0(O); Pulse Ox 100% on R/A; Weight 58.97 kg; hj Height 5 ft. 1 in. (154.94 cm); Pain 10/10; 08:40 BP 138 / 85; Pulse 79; Resp 19; Pulse Ox 100% on R/A; Pain 7/10; pc1 09:55 BP 112 / 75; Pulse 85; Resp 14; Pulse Ox 100% on R/A; Pain 0/10; pc1 10:58 BP 115 / 76; Pulse 86; Resp 18; Pulse Ox 100% on R/A; hj 07:46 Body Mass Index 24.56 (58.97 kg, 154.94 cm) hj ED Course: 07:37 Patient arrived in ED. rg4 07:40 Randy Kirby MD is Attending Physician. kdr 07:45 Ronnie Carolina RN is Primary Nurse. hj 08:01 EKG done, by cath lab radiological technologist. reviewed by Randy Kirby MD. dt2 08:01 Patient maintains SpO2 saturation greater than 95% on room air. hj 08:05 Triage completed. hj 08:05 Initial lab(s) drawn, by ED staff, sent to lab. Inserted saline lock: 20 gauge in right pc1 forearm, using aseptic technique. 08:06 Arm band placed on right wrist. pc1 08:06 Arm band placed on right wrist. hj 08:06 Patient has correct armband on for positive identification. Placed in gown. Bed in low hj position. Call light in reach. Side rails up X 1. cafeteria monitor on. Pulse ox on. NIBP on. 09:33 XRAY Chest (1 view) In Process Unspecified. EDMS 09:33 Wrist Left (3 View) XRAY In Process Unspecified. EDMS 09:38 X-ray completed. Portable x-ray completed in exam room. Patient tolerated procedure jb2 well. 11:00 No provider procedures requiring assistance completed. IV discontinued, intact, hj bleeding controlled, No redness/swelling at site. Pressure dressing applied. Administered Medications: 07:55 Drug: NS 0.9% 1000 ml Route: IV; Rate: 1 bolus; Site: right forearm; hj 09:30 Follow up: IV Status: Completed infusion; IV Intake: 1000ml hj 08:15 Drug: TORadol 30 mg Route: IVP; Site: right forearm; hj 08:37 Follow up: Response: No adverse reaction hj 08:16 Drug: Zofran 4 mg Route: IVP; Site: right forearm; hj 08:37 Follow up: Response: No adverse reaction hj 10:17 Drug: Tylenol #3 (300 mg-30 mg) 1 tablet Route: PO; hj 10:38 Follow up: Response: No adverse reaction; Pain is decreased pc1 Intake: 09:30 IV: 1000ml; Total: 1000ml. Outcome: 10:45 Discharge ordered by . [facility] 11:00 Attestation : i agree with the assessment and notes of SN Jovanna. 11:00 Discharged to home ambulatory. 11:00 Condition: stable 11:00 Discharge instructions given to patient, Instructed on discharge instructions, follow up and referral plans. medication usage, Demonstrated understanding of instructions, follow-up care, medications, Prescriptions given X 1. 11:02 Patient left the ED. Signatures: Dispatcher [employer] EDMS Randy Kirby MD MD kdr Buechter, Jesse jb2 Ronnie Carolina RN RN Ruth Damico Danielle dt2 Medardo Melissa Corrections: (The following items were deleted from the chart) 08:05 07:46 58.97 kg; Height 5 ft. 1 in.; BMI: 24.5; hj hj 07:50 Home Meds: amlodipine 5 mg tab 1 tab once daily [Inactive]; pc1 07:50 Home Meds: indapamide 1.25 mg Oral tab 1 tab once daily; take 1/2 a tab for 30 hj days beginning 03/14/18 [Inactive]; pc1 07:50 PMHx: Hypertension [Inactive]; pc1 hj
--- NOTE | 2018-07-27 10:47 | EDPHYS ---
Physician Documentation [facility] Name: Ember Clark Age: 27 yrs Sex: Female : 1990 Arrival Date: 07/27/2018 Time: 07:37 Bed 6 Private MD: ED Physician Randy Kirby HPI: 07/27 07:54 This 27 yrs old Black Female presents to ER via Ambulatory with complaints of Chest kdr Pain. 07:54 The patient or guardian reports chest pain that is located primarily in the substernal kdr area, anterior chest wall, bilaterally. The pain does not radiate. Associated signs and symptoms: Pertinent positives: None. shortness of breath. The chest pain is described as aching, burning, sharp. Duration: The patient or guardian reports a single episode, that is still ongoing. Modifying factors: The symptoms are alleviated by nothing. the symptoms are aggravated by activity, deep breath, exertion, movement, palpation of area, twisting torso. Severity of pain: At its worst the pain was severe incapacitating in the emergency department the pain is unchanged. The patient has experienced a previous episode. The patient has not recently seen a physician. 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 - Social history:: Smoking status: Patient/guardian denies using tobacco, Patient/guardian denies using alcohol, street drugs, IV drugs. - Ebola Screening: : Patient negative for fever greater than or equal to 101.5 degrees Fahrenheit, and additional compatible Ebola Virus Disease symptoms Patient denies exposure to infectious person Patient denies travel to an Ebola-affected area in the 21 days before illness onset. ROS: 07:54 Constitutional: Negative for fever, chills, and weight loss, Eyes: Negative for injury, kdr pain, redness, and discharge, ENT: Negative for injury, pain, and discharge, Neck: Negative for injury, pain, and swelling, Respiratory: Negative for shortness of breath, cough, wheezing, and pleuritic chest pain, Abdomen/GI: Negative for abdominal pain, nausea, vomiting, diarrhea, and constipation, Back: Negative for injury and pain, : Negative for injury, bleeding, discharge, and swelling, MS/Extremity: Negative for injury and deformity, Skin: Negative for injury, rash, and discoloration, Neuro: Negative for headache, weakness, numbness, tingling, and seizure activity. Psych: Negative for depression, anxiety, suicide ideation, homicidal ideation, and hallucinations, Allergy/Immunology: Negative for hives, rash, and allergies, Endocrine: Negative for neck swelling, polydipsia, polyuria, polyphagia, and marked weight changes, Hematologic/Lymphatic: Negative for swollen nodes, abnormal bleeding, and unusual bruising. 07:54 Cardiovascular: Positive for chest pain, Negative for edema, orthopnea, palpitations, paroxysmal nocturnal dyspnea. Exam: 07:54 Constitutional: This is a well developed, well nourished patient who is awake, alert, kdr and in moderate distress. Head/Face: Normocephalic, atraumatic. Eyes: Pupils equal round and reactive to light, extra-ocular motions intact. Lids and lashes normal. Conjunctiva and sclera are non-icteric and not injected. Cornea within normal limits. Periorbital areas with no swelling, redness, or edema. Neck: Trachea midline, no thyromegaly or masses palpated, and no cervical lymphadenopathy. Supple, full range of motion without nuchal rigidity, or vertebral point tenderness. No Meningismus. Chest/axilla: Normal chest wall appearance and motion. Nontender with no deformity. No lesions are appreciated. Cardiovascular: Regular rate and rhythm with a normal S1 and S2. No gallops, murmurs, or rubs. Normal PMI, no JVD. No pulse deficits. Respiratory: Lungs have equal breath sounds bilaterally, clear to auscultation and percussion. No rales, rhonchi or wheezes noted. No increased work of breathing, no retractions or nasal flaring. Abdomen/GI: Soft, non-tender, with normal bowel sounds. No distension or tympany. No guarding or rebound. No evidence of tenderness throughout. Back: No spinal tenderness. No costovertebral tenderness. Full range of motion. Skin: Warm, dry with normal turgor. Normal color with no rashes, no lesions, and no evidence of cellulitis. MS/ Extremity: Pulses equal, no cyanosis. Neurovascular intact. Full, normal range of motion. Neuro: Awake and alert, GCS 15, oriented to person, place, time, and situation. Cranial nerves II-XII grossly intact. Motor strength 5/5 in all extremities. Sensory grossly intact. Cerebellar exam normal. Normal gait. Psych: Awake, alert, with orientation to person, place and time. Behavior, mood, and affect are within normal limits. Vital Signs: 07:46 BP 114 / 84; Pulse 89; Resp 18; Temp 99.0(O); Pulse Ox 100% on R/A; Weight 58.97 kg; hj Height 5 ft. 1 in. (154.94 cm); Pain 10/10; 08:40 BP 138 / 85; Pulse 79; Resp 19; Pulse Ox 100% on R/A; Pain 7/10; pc1 09:55 BP 112 / 75; Pulse 85; Resp 14; Pulse Ox 100% on R/A; Pain 0/10; pc1 10:58 BP 115 / 76; Pulse 86; Resp 18; Pulse Ox 100% on R/A; hj 07:46 Body Mass Index 24.56 (58.97 kg, 154.94 cm) MDM: 07:54 Data reviewed: vital signs, nurses notes, lab test result(s), radiologic studies. kdr Counseling: I had a detailed discussion with the patient and/or guardian regarding: the historical points, exam findings, and any diagnostic results supporting the discharge/admit diagnosis, lab results, radiology results. 10:45 Patient medically screened. kdr 07/27 07:54 Order name: Basic Metabolic Panel; Complete Time: 08:44 kdr 07/27 07:54 Order name: CBC with Diff; Complete Time: 09:55 kdr 07/27 07:54 Order name: LFT's; Complete Time: 08:44 kdr 07/27 07:54 Order name: Magnesium; Complete Time: 08:44 kdr 07/27 07:54 Order name: NT PRO-BNP; Complete Time: 08:44 kdr 07/27 07:54 Order name: PT-INR; Complete Time: 08:54 kdr 07/27 07:54 Order name: Troponin (emerg Dept Use Only); Complete Time: 08:44 kdr 07/27 07:54 Order name: XRAY Chest (1 view); Complete Time: 10:43 kdr 07/27 07:54 Order name: Wrist Left (3 View) XRAY; Complete Time: 10:43 kdr 07/27 09:02 Order name: Urine Dipstick--Ancillary (enter results); Complete Time: 10:43 bd 07/27 09:02 Order name: Urine --Ancillary (enter results); Complete Time: 10:43 bd 07/27 09:28 Order name: Manual Differential; Complete Time: 09:55 EDMS 07/27 07:54 Order name: EKG; Complete Time: 07:55 kdr 07/27 07:54 Order name: Cardiac monitoring; Complete Time: 07:55 kdr 07/27 07:54 Order name: EKG - Nurse/Tech; Complete Time: 07:56 kdr 07/27 07:54 Order name: IV Saline Lock; Complete Time: 08:16 kdr 07/27 07:54 Order name: Labs collected and sent; Complete Time: 08:16 kdr 07/27 07:54 Order name: O2 Per Protocol; Complete Time: 07:56 kdr 07/27 07:54 Order name: O2 Sat Monitoring; Complete Time: 07:56 kdr 07/27 07:54 Order name: Urine Test (obtain specimen); Complete Time: 08:15 kdr 07/27 10:44 Order name: Volar Wrist Splint; Complete Time: 10:54 kdr Administered Medications: 07:55 Drug: NS 0.9% 1000 ml Route: IV; Rate: 1 bolus; Site: right forearm; hj 09:30 Follow up: IV Status: Completed infusion; IV Intake: 1000ml hj 08:15 Drug: TORadol 30 mg Route: IVP; Site: right forearm; hj 08:37 Follow up: Response: No adverse reaction hj 08:16 Drug: Zofran 4 mg Route: IVP; Site: right forearm; hj 08:37 Follow up: Response: No adverse reaction hj 10:17 Drug: Tylenol #3 (300 mg-30 mg) 1 tablet Route: PO; hj 10:38 Follow up: Response: No adverse reaction; Pain is decreased pc1 Disposition: 07/27/18 10:45 Discharged to Home. Impression: Chest pain on breathing, Chest pain, unspecified, Pain in left wrist. - Condition is Stable. - Discharge Instructions: Joint Pain, Musculoskeletal Pain, Chest Wall Pain, [id number], Wrist Pain, [id number]. - Prescriptions for Ibuprofen 600 mg Oral Tablet - take 1 tablet by ORAL route every 6 hours As needed take with food; 30 tablet. Tramadol 50 mg Oral Tablet - take 1 tablet by ORAL route every 8 hours as needed; 12 tablet. - Medication Reconciliation Form, Thank You Letter, Prescription Opioid Use, Work release form form. - Follow up: Private Physician; When: 2 - 3 days; Reason: If symptoms return, Further diagnostic work-up, Recheck today's complaints, Continuance of care, Re-evaluation by your physician. - Problem is new. - Symptoms have improved. Signatures: Dispatcher [employer] EDMS Randy Kirby MD MD [facility] Ronnie Carolina RN RN hj Medardo Melissa pc1 Corrections: (The following items were deleted from the chart) 10:18 07:50 Home Meds: amlodipine 5 mg tab 1 tab once daily [Inactive]; pc1 hj 10:18 07:50 Home Meds: indapamide 1.25 mg Oral tab 1 tab once daily; take 1/2 a tab for 30 hj days beginning 03/14/18 [Inactive]; pc1 10:18 07:50 PMHx: Hypertension [Inactive]; pc1 hj 11:02 10:45 07/27/2018 10:45 Discharged to Home. Impression: Chest pain on breathing; Chest hj pain, unspecified; Pain in left wrist. Condition is Stable. Forms are Medication Reconciliation Form, Thank You Letter, Antibiotic Education, Prescription Opioid Use. Follow up: Private Physician; When: 2 - 3 days; Reason: If symptoms return, Further diagnostic work-up, Recheck today's complaints, Continuance of care, Re-evaluation by your physician. Problem is new. Symptoms have improved. kdr
[2018-07-27 11:10] VITALS: TEMP 99; O2SAT 100
[2018-07-27 11:14] VITALS: BP 115/76
--- NOTE | 2018-07-27 13:05 | EKG ---
Test Date: 2018-07-27 Test Time: 07:54:11 Director Of Content And Programming: HUGO MEASUREMENT RESULTS: Intervals: Rate: 90 VT: 142 QRSD: 72 QT: 360 QTc: 440 [place]: P: 77 VT: 142 QRS: 67 T: 55 INTERPRETIVE STATEMENTS: Normal sinus rhythm Normal ECG Compared to ECG 03/17/2018 07:33:03 No significant changes Electronically Signed On 07-27-18 13:03:54 SHUTDOWN PLANNER by Luis Manuel Spain
== END 2018-07-27 11:02 | disposition home or self-care (01) ==
LOC: ER 07:36
DX: R07.1 Chest pain on breathing (principal); M25.532 Pain in left wrist
CPT/HCPCS: 36415; 71045; 80048; 80076; 81003; 81025; 83735; 83880; 84484; 85025; 85610; 93005; 96361; 96374; 96375; 99285; J2405; J7030

== ENCOUNTER 2018-08-17 07:07 | Emergency (ER) | payer SELFPAY ==
--- OUTSIDE RECORDS SUMMARY | 2018-08-17 07:09 | XMS REPORT ---
:1990 [facility] Address [address] [place] [address] [place] [id number] Care Team Providers Name Role Phone Unavailable Unavailable Unavailable Problems This patient has no known problems. Allergies, Adverse Reactions, Alerts This patient has no known allergies or adverse reactions. Medications This patient has no known medications.
[2018-08-17 07:44] LABS: Protime INR 1.05
[2018-08-17] MEDS ORDERED: METHYLPREDNISOLONE 125 MG INJ ONE (07:45)
[2018-08-17] MEDS ORDERED: KETOROLAC 30 MG/ML INJ ONE (07:45)
[2018-08-17 07:47] LABS: Absolute Lymphocytes (CBC) 1.3 K/uL (0.7-4.9); Absolute Monocytes 0.3 K/uL (0.1-1.3); Absolute Neutrophil 1.4 K/uL (1.8-8.0); Eosinophils % 3.5 % (0-4.4); Hematocrit 29.7 % (36.0-45.0); Lymphocytes % 40.1 % (15.3-44.8); MPV 9.5 fL (7.6-11.3); Monocytes % 10.1 % (3.3-12.3); RBC Red Blood Cell Count 4.42 M/uL (3.86-4.86)
[2018-08-17 08:07] LABS: ALT/SGPT 23 U/L (12-78); AST/SGOT 31 U/L (15-37); Albumin 3.7 g/dL (3.4-5.0); Alkaline Phosphatase 58 U/L (45-117); BUN Blood Urea Nitrogen 9 mg/dL (7-18); Bicarbonate 27 mmol/L (21-32); Bilirubin Direct 0.2 mg/dL (0-0.2); Bilirubin Total 0.5 mg/dL (0.2-1.0); Glucose Level 76 mg/dL (74-106); Magnesium 1.9 mg/dL (1.8-2.4); NT PRO-BNP 43 pg/mL (<125); Potassium 3.8 mmol/L (3.5-5.1); Protein, Total 7.3 g/dL (6.4-8.2); Sodium Level 140 mmol/L (136-145); Troponin (Emerg Dept Use Only) < 0.02 ng/mL (0.0-0.045)
[2018-08-17 08:27] LABS: Anisocytosis 1+; Blood Morphology Comment NOTED (NOT SEEN); Hypochromasia 1+; Platelet Estimate ADEQ; Urine White Blood Cell Casts OK
--- NOTE | 2018-08-17 08:45 | RAD REPORT ---
EXAM DESCRIPTION: Fabiano Single View08/17/2018 8:00 am CLINICAL HISTORY: Chest pain COMPARISON: July 27, 2018 FINDINGS: The lungs appear clear of acute infiltrate. The heart is normal size IMPRESSION: No acute abnormalities displayed
[2018-08-17 10:19] LABS: Barbiturates NEGATIVE (NEGATIVE); Benzodiazepines NEGATIVE (NEGATIVE); Cocaine NEGATIVE (NEGATIVE); METHAMPHETAM NEGATIVE (NEGATIVE); Methadone NEGATIVE (NEGATIVE); Opiates NEGATIVE (NEGATIVE); Phencyclidine NEGATIVE (NEGATIVE); THC Cannibis NEGATIVE (NEGATIVE)
[2018-08-17 10:28] LABS: Urine Blood NEGATIVE (NEG); Urine Glucose NEGATIVE (NEG); Urine Protein NEGATIVE (NEG); Urine pH 5.5 (5.0-7.0)
[2018-08-17] MEDS ORDERED: ONDANSETRON 4 MG/2 ML VIAL ONE (10:38)
[2018-08-17] MEDS ORDERED: MORPHINE 4 MG/ML SYR ONE (10:38)
--- NOTE | 2018-08-17 11:25 | ER ---
Nurse's Notes [facility] Name: Ember Clark Age: 27 yrs Sex: Female : 1990 Arrival Date: 08/17/2018 Time: 07:08 Bed 20 Private MD: Diagnosis: Chest pain, unspecified-Recurrent Presentation: 08/17 07:18 Presenting complaint: Patient states: "I've been waking up with chest pains for the ss past 2-3 days. I don't know if it's my anxiety or something else." Pt is tearful during triage. Pt also reports that when this happened the other day, she was told she had the flu. Transition of care: patient was not received from another setting of care. Onset of symptoms was August 13, 2018. Risk Assessment: Do you want to hurt yourself or someone else? Patient reports no desire to harm self or others. Initial Sepsis Screen: Does the patient meet any 2 criteria? No. Patient's initial sepsis screen is negative. Does the patient have a suspected source of infection? No. Patient's initial sepsis screen is negative. Care prior to arrival: None. 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 - Social history:: Smoking status: Patient/guardian denies using tobacco. - Ebola Screening: : Patient denies exposure to infectious person Patient denies travel to an Ebola-affected area in the 21 days before illness onset. Screenin:15 Abuse screen: Denies threats or abuse. Nutritional screening: No deficits noted. rb1 Tuberculosis screening: No symptoms or risk factors identified. Fall Risk None identified. Assessment: 07:15 General: Appears uncomfortable, slender, Behavior is calm, cooperative, Denies fever. rb1 General: Pt. was diagnosed with the Flu on Tuesday. Is currently taking medication to treat her cough.. Pain: Complains of pain in chest Pain does not radiate. Pain currently is 10 out of 10 on a pain scale. Pain began Tuesday. Neuro: Level of Consciousness is awake, alert, obeys commands, Oriented to person, place, time, situation. Cardiovascular: Reports shortness of breath, sometimes Capillary refill < 3 seconds is brisk in bilateral fingers Rhythm is sinus rhythm. Respiratory: Reports shortness of breath Airway is patent Respiratory effort is even, unlabored, Respiratory pattern is regular, symmetrical. GI: No signs and/or symptoms were reported involving the gastrointestinal system. : No signs and/or symptoms were reported regarding the genitourinary system. Derm: Skin is dry, Skin is normal, Skin temperature is warm. 08:15 Reassessment: Patient appears in no apparent distress at this time. No changes from rb1 previously documented assessment. 09:15 Reassessment: Patient appears in no apparent distress at this time. Patient and/or rb1 family updated on plan of care and expected duration. Pain level reassessed. Patient is alert, oriented x 3, equal unlabored respirations, skin warm/dry/pink. 10:15 Reassessment: Patient appears in no apparent distress at this time. Patient and/or rb1 family updated on plan of care and expected duration. Pain level reassessed. Patient is alert, oriented x 3, equal unlabored respirations, skin warm/dry/pink. Pain 10/10. 11:15 Reassessment: Patient appears in no apparent distress at this time. Patient and/or rb1 family updated on plan of care and expected duration. Pain level reassessed. Pain 7/10. Vital Signs: 07:15 Weight 61.23 kg (R); Height 5 ft. 1 in. (154.94 cm) (R); Pain 10/10; rb1 07:18 BP 125 / 75; Pulse 89; Resp 21; Temp 98.1(TE); Pulse Ox 100% on R/A; ss 08:15 BP 111 / 82; Pulse 64; Resp 19; Pulse Ox 100% on R/A; rb1 10:15 BP 123 / 85; Pulse 65; Resp 18; Pulse Ox 100% on R/A; Pain 10/10; rb1 11:15 BP 121 / 83; Pulse 79; Resp 17; Pulse Ox 99% on R/A; Pain 7/10; rb1 07:15 Body Mass Index 25.51 (61.23 kg, 154.94 cm) [facility] ED Course: 07:08 Patient arrived in ED. as 07:12 Randy Kirby MD is Attending Physician. kdr 07:14 Vero Mclaughlin, RN is Primary Nurse. rb1 07:15 Patient has correct armband on for positive identification. Bed in low position. Call rb1 light in reach. Side rails up X 1. nurse monitoring on. Pulse ox on. NIBP on. Warm blanket given. 07:15 Patient maintains SpO2 saturation greater than 95% on room air. rb1 07:18 Arm band placed on right wrist. ss 07:20 Triage completed. ss 07:25 Inserted saline lock: 22 gauge in right antecubital area, using aseptic technique. rb1 Blood collected. 08:00 X-ray completed. Portable x-ray completed in exam room. Patient tolerated procedure jb2 well. 08:01 XRAY Chest (1 view) In Process Unspecified. EDMS 08:12 EKG done, by audio visual tech. reviewed by Randy Kirby MD. at1 09:59 Urine collected: clean catch specimen, clear. mh5 09:59 UDS Sent. mh5 09:59 Urine --Ancillary (enter results) Sent. mh5 09:59 Urine Dipstick--Ancillary (enter results) Sent. mh5 11:46 No provider procedures requiring assistance completed. IV discontinued, intact, ss bleeding controlled, No redness/swelling at site. Pressure dressing applied. Administered Medications: 07:38 Drug: TORadol 30 mg Route: IVP; Site: right antecubital; rb1 07:55 Follow up: Response: No adverse reaction; Pain is decreased rb1 07:39 Drug: SOLU-Medrol 125 mg Route: IVP; Site: right antecubital; rb1 07:55 Follow up: Response: No adverse reaction rb1 10:38 Drug: morphine 4 mg Route: IVP; Site: right antecubital; rb1 10:55 Follow up: Response: No adverse reaction; Pain is decreased rb1 10:38 Drug: Zofran 4 mg Route: IVP; Site: right antecubital; rb1 10:55 Follow up: Response: No adverse reaction rb1 Outcome: 11:24 Discharge ordered by . kdr 11:46 Discharged to home ambulatory. ss 11:46 Condition: good 11:46 Discharge instructions given to patient, family, Instructed on discharge instructions, follow up and referral plans. medication usage, Demonstrated understanding of instructions, follow-up care, medications, Prescriptions given X 3. 11:46 Patient left the ED. Signatures: Dispatcher [employer] EDMS Randy Kirby MD MD [facility] Jacob Ca2 Chantelle Resendiz Shelby, RN RN Tawny Moreira, cathode ray tube assembler EKG Tat1 Vero Mclaughlin RN RN [facility] Nora Resendiz [facility]
--- NOTE | 2018-08-17 11:25 | EDPHYS ---
Physician Documentation [facility] Name: Ember Clark Age: 27 yrs Sex: Female : 1990 Arrival Date: 08/17/2018 Time: 07:08 Bed 20 Private MD: ED Physician Randy Kirby HPI: 08/17 07:20 This 27 yrs old Black Female presents to ER via Ambulatory with complaints of Chest kdr Pain. 07:20 The patient or guardian reports chest pain that is located primarily in the anterior kdr chest wall, bilaterally, chest diffusely. The pain does not radiate. Associated signs and symptoms: The patient has no apparent associated signs or symptoms. The chest pain is described as aching, sharp. Duration: The patient or guardian reports a single episode, that is still ongoing, and worsening. Modifying factors: The symptoms are alleviated by nothing. the symptoms are aggravated by movement. Severity of pain: At its worst the pain was moderate in the emergency department the pain is unchanged. The patient has not experienced similar symptoms in the past, Not this bad. The patient has been recently seen by a physician: [facility] earlier this week - told she had the flu. 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 - Social history:: Smoking status: Patient/guardian denies using tobacco. - Ebola Screening: : Patient denies exposure to infectious person Patient denies travel to an Ebola-affected area in the 21 days before illness onset. ROS: 07:20 Constitutional: Negative for fever, chills, and weight loss, Eyes: Negative for injury, kdr pain, redness, and discharge, ENT: Negative for injury, pain, and discharge, Neck: Negative for injury, pain, and swelling, Respiratory: Negative for shortness of breath, cough, wheezing, and pleuritic chest pain, Abdomen/GI: Negative for abdominal pain, nausea, vomiting, diarrhea, and constipation, Back: Negative for injury and pain, : Negative for injury, bleeding, discharge, and swelling, MS/Extremity: Negative for injury and deformity, Skin: Negative for injury, rash, and discoloration, Neuro: Negative for headache, weakness, numbness, tingling, and seizure activity. Psych: Negative for depression, anxiety, suicide ideation, homicidal ideation, and hallucinations, Allergy/Immunology: Negative for hives, rash, and allergies, Endocrine: Negative for neck swelling, polydipsia, polyuria, polyphagia, and marked weight changes, Hematologic/Lymphatic: Negative for swollen nodes, abnormal bleeding, and unusual bruising. 07:20 Cardiovascular: Positive for chest pain, Negative for edema, orthopnea, palpitations, paroxysmal nocturnal dyspnea. Exam: 07:20 Constitutional: This is a well developed, well nourished patient who is awake, alert, kdr and in mild distress. Head/Face: Normocephalic, atraumatic. Eyes: Pupils equal round and reactive to light, extra-ocular motions intact. Lids and lashes normal. Conjunctiva and sclera are non-icteric and not injected. Cornea within normal limits. Periorbital areas with no swelling, redness, or edema. Neck: Trachea midline, no thyromegaly or masses palpated, and no cervical lymphadenopathy. Supple, full range of motion without nuchal rigidity, or vertebral point tenderness. No Meningismus. Chest/axilla: Normal chest wall appearance and motion. Nontender with no deformity. No lesions are appreciated. Cardiovascular: Regular rate and rhythm with a normal S1 and S2. No gallops, murmurs, or rubs. Normal PMI, no JVD. No pulse deficits. Respiratory: Lungs have equal breath sounds bilaterally, clear to auscultation and percussion. No rales, rhonchi or wheezes noted. No increased work of breathing, no retractions or nasal flaring. Abdomen/GI: Soft, non-tender, with normal bowel sounds. No distension or tympany. No guarding or rebound. No evidence of tenderness throughout. Back: No spinal tenderness. No costovertebral tenderness. Full range of motion. Skin: Warm, dry with normal turgor. Normal color with no rashes, no lesions, and no evidence of cellulitis. MS/ Extremity: Pulses equal, no cyanosis. Neurovascular intact. Full, normal range of motion. Neuro: Awake and alert, GCS 15, oriented to person, place, time, and situation. Cranial nerves II-XII grossly intact. Motor strength 5/5 in all extremities. Sensory grossly intact. Cerebellar exam normal. Normal gait. Psych: Awake, alert, with orientation to person, place and time. Behavior, mood, and affect are within normal limits. 08:36 ECG was reviewed by the Attending Physician. kdr Vital Signs: 07:15 Weight 61.23 kg (R); Height 5 ft. 1 in. (154.94 cm) (R); Pain 10/10; rb1 07:18 BP 125 / 75; Pulse 89; Resp 21; Temp 98.1(TE); Pulse Ox 100% on R/A; ss 08:15 BP 111 / 82; Pulse 64; Resp 19; Pulse Ox 100% on R/A; rb1 10:15 BP 123 / 85; Pulse 65; Resp 18; Pulse Ox 100% on R/A; Pain 10/10; rb1 11:15 BP 121 / 83; Pulse 79; Resp 17; Pulse Ox 99% on R/A; Pain 7/10; rb1 07:15 Body Mass Index 25.51 (61.23 kg, 154.94 cm) rb1 MDM: 07:20 Data reviewed: vital signs, nurses notes, lab test result(s), EKG, radiologic studies, kdr plain films. 11:24 Patient medically screened. kdr 08/17 07:20 Order name: Basic Metabolic Panel; Complete Time: 09:03 kdr 08/17 07:20 Order name: CBC with Diff; Complete Time: 09:03 kdr 08/17 07:20 Order name: LFT's; Complete Time: 09:03 kdr 08/17 07:20 Order name: Magnesium; Complete Time: 09:03 kdr 08/17 07:20 Order name: NT PRO-BNP; Complete Time: 09:03 kdr 08/17 07:20 Order name: PT-INR; Complete Time: 09:03 kdr 08/17 07:20 Order name: Troponin (emerg Dept Use Only); Complete Time: 09:03 kdr 08/17 07:20 Order name: XRAY Chest (1 view); Complete Time: 09:03 kdr 08/17 07:48 Order name: CBC Smear Scan; Complete Time: 09:03 EDMS 08/17 09:36 Order name: UDS; Complete Time: 10:37 kdr 08/17 09:58 Order name: Urine Dipstick--Ancillary (enter results); Complete Time: 10:37 eb 08/17 09:58 Order name: Urine --Ancillary (enter results); Complete Time: 10:37 eb 08/17 07:20 Order name: EKG; Complete Time: 07:21 kdr 08/17 07:20 Order name: Cardiac monitoring; Complete Time: 07:40 kdr 08/17 07:20 Order name: EKG - Nurse/Tech; Complete Time: 08:57 kdr 08/17 07:20 Order name: IV Saline Lock; Complete Time: 07:40 kdr 08/17 07:20 Order name: Labs collected and sent; Complete Time: 07:41 kdr 08/17 07:20 Order name: O2 Per Protocol; Complete Time: 07:41 kdr 08/17 07:20 Order name: O2 Sat Monitoring; Complete Time: 07:41 kdr 08/17 07:20 Order name: Urine Test (obtain specimen); Complete Time: 10:23 kdr EC:36 Rhythm is regular. QRS [place] is Normal. MT interval is normal. QRS interval is normal. kdr QT interval is normal. No Q waves. T waves are Normal. No ST changes noted. Clinical impression: Normal ECG. Administered Medications: 07:38 Drug: TORadol 30 mg Route: IVP; Site: right antecubital; rb1 07:55 Follow up: Response: No adverse reaction; Pain is decreased rb1 07:39 Drug: SOLU-Medrol 125 mg Route: IVP; Site: right antecubital; rb1 07:55 Follow up: Response: No adverse reaction rb1 10:38 Drug: morphine 4 mg Route: IVP; Site: right antecubital; rb1 10:55 Follow up: Response: No adverse reaction; Pain is decreased rb1 10:38 Drug: Zofran 4 mg Route: IVP; Site: right antecubital; rb1 10:55 Follow up: Response: No adverse reaction rb1 Disposition: 08/17/18 11:24 Discharged to Home. Impression: Chest pain, unspecified - Recurrent. - Condition is Stable. - Discharge Instructions: Chest Wall Pain, [id number], Nonspecific Chest Pain, [id number]. - Prescriptions for Ibuprofen 600 mg Oral Tablet - take 1 tablet by ORAL route every 6 hours As needed take with food; 30 tablet. Tylenol- Codeine #3 300-30 mg Oral Tablet - take 2 tablet by ORAL route every 6 hours As needed; 30 tablet. Valium 5 mg Oral Tablet - take 1 tablet by ORAL route every 8 hours As needed; 6 tablet. - Medication Reconciliation Form, Thank You Letter, Prescription Opioid Use form. - Follow up: Private Physician; When: 2 - 3 days; Reason: Further diagnostic work-up, Recheck today's complaints, Continuance of care, Re-evaluation by your physician. - Problem is an acute exacerbation. - Symptoms have improved. Signatures: Dispatcher [employer] EDMS Randy Kirby MD MD kdr Sharron Diehl RN RN ss Vero Mclaughlin, RN RN rb1 Corrections: (The following items were deleted from the chart) 11:46 11:24 08/17/2018 11:24 Discharged to Home. Impression: Chest pain, unspecified - ss Recurrent. Condition is Stable. Forms are Medication Reconciliation Form, Thank You Letter, Antibiotic Education, Prescription Opioid Use. Follow up: Private Physician; When: 2 - 3 days; Reason: Further diagnostic work-up, Recheck today's complaints, Continuance of care, Re-evaluation by your physician. Problem is an acute exacerbation. Symptoms have improved. kdr
[2018-08-17 11:55] VITALS: BP 111/82; O2SAT 100
--- NOTE | 2018-08-17 12:44 | EKG ---
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
== END 2018-08-17 11:46 | disposition home or self-care (01) ==
LOC: ER 07:07
DX: R07.9 Chest pain, unspecified (principal)
CPT/HCPCS: 36415; 71045; 80048; 80076; 80307; 81003; 81025; 83735; 83880; 84484; 85025; 85610; 93005; 96374; 96375; 99285; J2405; J2930

== ENCOUNTER 2018-10-20 09:29 | Emergency (ER) | payer SELFPAY ==
--- NOTE | 2018-10-20 11:01 | EDPHYS ---
Physician Documentation [facility] Name: Ember Clark Age: 27 yrs Sex: Female : 1990 Arrival Date: 10/20/2018 Time: 09:32 Bed 12 Private MD: ED Physician Randy Kirby HPI: 10/20 10:07 This 27 yrs old Black Female presents to ER via Ambulatory with complaints of Sore cp Throat, Congestion, Cough. 10:07 The patient presents with sore throat. Associated signs and symptoms: Pertinent cp positives: cough, Pertinent negatives diarrhea, fever, vomiting. 10:07 Severity of symptoms: in the emergency department the symptoms are unchanged, despite cp home interventions. 10:07 Onset: The symptoms/episode began/occurred this morning. 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 - Social history:: Smoking status: Patient/guardian denies using tobacco. - Ebola Screening: : No symptoms or risks identified at this time. ROS: 10:10 Constitutional: Negative for body aches, chills, fever, poor PO intake. cp 10:10 Eyes: Negative for injury, pain, redness, and discharge. cp 10:10 ENT: Positive for sore throat, Negative for drainage from ear(s), ear pain, difficulty swallowing, difficulty handling secretions. 10:10 Respiratory: Positive for cough, Negative for wheezing. 10:10 Abdomen/GI: Negative for abdominal pain, nausea, vomiting, and diarrhea. 10:10 All other systems are negative. Exam: 10:20 Constitutional: The patient appears in no acute distress, alert, awake, non-toxic, well cp developed, well nourished. 10:20 Head/Face: Normocephalic, atraumatic. cp 10:20 Eyes: Periorbital structures: appear normal, Conjunctiva: normal, no exudate, no injection, Lids and lashes: appear normal, bilaterally. 10:20 ENT: External ear(s): are unremarkable, Ear canal(s): are normal, clear, TM's: are normal, no evidence of bulging, no erythema, dullness, bilaterally, Nose: is normal, Mouth: Lips: moist, Oral mucosa: pink and intact, moist, Posterior pharynx: Airway: no evidence of obstruction, patent, Tonsils: no enlargement, no exudate, Uvula: midline, swelling, is not appreciated, erythema, that is mild, exudate, is not appreciated. 10:20 Neck: ROM/movement: is normal, is supple, without pain, no range of motions limitations, no meningismus, no nuchal rigidity, Lymph nodes: no appreciated lymphadenopathy. 10:20 Chest/axilla: Inspection: normal, Palpation: is normal, no crepitus, no tenderness. 10:20 Cardiovascular: Rate: normal, Rhythm: regular. 10:20 Respiratory: the patient does not display signs of respiratory distress, Respirations: normal, no use of accessory muscles, no retractions, no splinting, no tachypnea, labored breathing, is not present, Breath sounds: are clear throughout, no decreased breath sounds, no stridor, no wheezing. 10:20 Abdomen/GI: Exam negative for discomfort, distension, guarding, Inspection: abdomen appears normal. Vital Signs: 09:40 BP 125 / 69; Pulse 97; Resp 16; Temp 98.3(TE); Pulse Ox 99% on R/A; Weight 62.6 kg; hb Height 5 ft. 1 in. (154.94 cm); Pain 7/10; 09:40 Body Mass Index 26.07 (62.60 kg, 154.94 cm) hb MDM: 09:54 Patient medically screened. cp 10:20 Differential diagnosis: group A strep tonsillitis, laryngitis, peritonsillar abscess. cp 11:00 Data reviewed: vital signs, nurses notes, lab test result(s). cp 11:00 Counseling: I had a detailed discussion with the patient and/or guardian regarding: the cp historical points, exam findings, and any diagnostic results supporting the discharge/admit diagnosis, lab results, to return to the emergency department if symptoms worsen or persist or if there are any questions or concerns that arise at home. 10/20 10:00 Order name: Influenza Screen (a \T\ B); Complete Time: 10:50 10/20 10:50 Interpretation: Reviewed. 10/20 10:00 Order name: Strep; Complete Time: 10:50 cp 10/20 10:57 Interpretation: Reviewed. 10/20 10:48 Order name: Throat Culture EDME Administered Medications: No medications were administered Disposition: 12:45 Co-signature as Attending Physician, Randy Kirby MD I agree with the assessment and kdr plan of care. Disposition: 10/20/18 11:00 Discharged to Home. Impression: Acute upper respiratory infection, unspecified. - Condition is Stable. - Discharge Instructions: Upper Respiratory Infection, Adult, Viral Respiratory Infection, Cool Mist Vaporizer. - Prescriptions for Ibuprofen 800 mg Oral Tablet - take 1 tablet by ORAL route every 8 hours As needed take with food; 30 tablet. Tessalon Perles 100 mg Oral Capsule - take 1 capsule by ORAL route every 8 hours As needed; 15 capsule. - Medication Reconciliation Form, Thank You Letter, Antibiotic Education, Prescription Opioid Use form. - Follow up: Private Physician; When: 2 - 3 days; Reason: Worsening of condition. - Problem is new. - Symptoms are unchanged. Signatures: Dispatcher [employer] EDME Randy Kirby MD MD kdr Rafiq Mirza, NICKI PA cp Marta Jordan RN RN hb Corrections: (The following items were deleted from the chart) 11:09 11:00 10/20/2018 11:00 Discharged to Home. Impression: Acute upper respiratory hb infection, unspecified. Condition is Stable. Forms are Medication Reconciliation Form, Thank You Letter, Antibiotic Education, Prescription Opioid Use. Follow up: Private Physician; When: 2 - 3 days; Reason: Worsening of condition. Problem is new. Symptoms are unchanged. cp 10/21 02:39 10/20 10:07 Onset: The symptoms/episode began/occurred 3 day(s) ago, cp cp
--- NOTE | 2018-10-20 11:01 | ER ---
Nurse's Notes [facility] Name: Ember Clark Age: 27 yrs Sex: Female : 1990 Arrival Date: 10/20/2018 Time: 09:32 Bed 12 Private MD: Diagnosis: Acute upper respiratory infection, unspecified Presentation: 10/20 09:39 Presenting complaint: Cough, congestion, and sore throat since this morning. Transition hb of care: patient was not received from another setting of care. Onset of symptoms was October 20, 2018. Risk Assessment: Do you want to hurt yourself or someone else? Patient reports no desire to harm self or others. Initial Sepsis Screen: Does the patient meet any 2 criteria? No. Patient's initial sepsis screen is negative. Does the patient have a suspected source of infection? No. Patient's initial sepsis screen is negative. Care prior to arrival: None. 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 - Social history:: Smoking status: Patient/guardian denies using tobacco. - Ebola Screening: : No symptoms or risks identified at this time. Screenin:41 Abuse screen: Denies threats or abuse. Denies injuries from another. Nutritional hb screening: No deficits noted. Tuberculosis screening: No symptoms or risk factors identified. Fall Risk None identified. Assessment: 09:42 General: Appears in no apparent distress. Behavior is calm, cooperative. Pain: Pain hb currently is 7 out of 10 on a pain scale. Neuro: Level of Consciousness is awake, alert, obeys commands, Oriented to person, place, time, situation. Cardiovascular: Capillary refill < 3 seconds Patient's skin is warm and dry. Respiratory: Reports cough that is non-productive, Airway is patent Respiratory effort is even, unlabored, Respiratory pattern is regular, symmetrical, Breath sounds are clear bilaterally. GI: No signs and/or symptoms were reported involving the gastrointestinal system. : No signs and/or symptoms were reported regarding the genitourinary system. EENT: Throat is reddened has enlarged tonsils bilaterally. Derm: Skin is pink, warm \T\ dry. Musculoskeletal: No signs and/or symptoms reported regarding the musculoskeletal system. 10:29 Reassessment: Patient appears in no apparent distress at this time. Patient and/or hb family updated on plan of care and expected duration. Pain level reassessed. Patient is alert, oriented x 3, equal unlabored respirations, skin warm/dry/pink. Vital Signs: 09:40 BP 125 / 69; Pulse 97; Resp 16; Temp 98.3(TE); Pulse Ox 99% on R/A; Weight 62.6 kg; hb Height 5 ft. 1 in. (154.94 cm); Pain 7/10; 09:40 Body Mass Index 26.07 (62.60 kg, 154.94 cm) hb ED Course: 09:32 Patient arrived in ED. mr 09:40 Triage completed. hb 09:40 Arm band placed on. hb 09:45 Marta Jordan, RN is Primary Nurse. hb 09:45 Patient has correct armband on for positive identification. Call light in reach. hb 09:54 Rafiq Mirza PA is PHCP. cp 09:54 Randy Kirby MD is Attending Physician. cp 11:08 No provider procedures requiring assistance completed. Patient did not have IV access hb during this emergency room visit. Administered Medications: No medications were administered Outcome: 11:00 Discharge ordered by MD. cp 11:08 Discharged to home ambulatory, with family. hb 11:08 Condition: stable 11:08 Discharge instructions given to patient, Instructed on discharge instructions, follow up and referral plans. medication usage, Demonstrated understanding of instructions, follow-up care, medications, Prescriptions given X 2. 11:09 Patient left the ED. hb Signatures: Vanessa Mcmahon mr Rafiq Mirza PA PA cp Marta Jordan, RN RN hb
[2018-10-20 11:15] VITALS: BP 125/69; TEMP 98.3; O2SAT 99
--- OUTSIDE RECORDS SUMMARY | 2018-10-20 11:15 | XMS REPORT ---
:1990 [facility] Address [address] [place] [address] Dr. Griffith [address] [place] [id number] Care Team Providers Name Role Phone Unavailable Unavailable Unavailable Problems This patient has no known problems. Allergies, Adverse Reactions, Alerts This patient has no known allergies or adverse reactions. Medications This patient has no known medications.
== END 2018-10-20 11:09 | disposition home or self-care (01) ==
LOC: ER 09:29
DX: J06.9 Acute upper respiratory infection, unspecified (principal)
CPT/HCPCS: 87070; 87081; 87804; 99282

== ENCOUNTER 2020-03-31 04:18 | Emergency (ER) | payer OTHER, SELFPAY ==
--- OUTSIDE RECORDS SUMMARY | 2020-03-31 04:20 | XMS REPORT | Continuity of Care Document ---
:1990 Author Organization [facility] t Address [address] [place] [address] Dr. Griffith [address] [place] [address] Care Team Providers Name Role Phone Jae Hdz Attending Clinician Problems This patient has no known problems. Allergies, Adverse Reactions, Alerts This patient has no known allergies or adverse reactions. Medications This patient has no known medications. Procedures This patient has no known procedures. Encounters Start End Encounter Admission Attending Care Care Encounter Source Date/Time Date/Time Type Type Clinicians Facility Department ID 2019-01-16 2019-01-16 Office ADELE Luz [id number] 13:40:36 14:50:57 Visit Lizy Rowe PROSECUTING ATTORNEY [id number] [facility] [id number] MATERNAL [id number] & CHILD [address] [place] [address] Results This patient has no known results.
[2020-03-31 04:58] LABS: Absolute Lymphocytes (CBC) 1.9 K/uL (0.7-4.9); Basophils % 1.4 % (0-1.3); Hematocrit 31.1 % (36.0-45.0); Lymphocytes % 40.1 % (15.3-44.8); MPV 9.2 fL (7.6-11.3); RBC Red Blood Cell Count 4.81 M/uL (3.86-4.86)
[2020-03-31] MEDS ORDERED: KETOROLAC 30 MG/ML INJ ONE (05:04)
[2020-03-31 05:08] LABS: Protime INR 1.04
[2020-03-31 05:15] LABS: ALT/SGPT 23 U/L (12-78); AST/SGOT 26 U/L (15-37); Alkaline Phosphatase 56 U/L (45-117); BUN Blood Urea Nitrogen 13 mg/dL (7-18); Bicarbonate 23 mmol/L (21-32); Bilirubin Direct 0.2 mg/dL (0-0.2); Bilirubin Total 0.9 mg/dL (0.2-1.0); Glucose Level 85 mg/dL (74-106); Potassium 3.6 mmol/L (3.5-5.1); Protein, Total 7.5 g/dL (6.4-8.2); Sodium Level 137 mmol/L (136-145)
[2020-03-31 05:16] LABS: Magnesium 1.8 mg/dL (1.8-2.4); NT PRO-BNP 19 pg/mL (<125); Troponin (Emerg Dept Use Only) < 0.02 ng/mL (0.0-0.045)
[2020-03-31] MEDS ORDERED: ONDANSETRON 4 MG/2 ML VIAL ONE (05:56)
[2020-03-31] MEDS ORDERED: MORPHINE 4 MG/ML SYR ONE (05:56)
--- NOTE | 2020-03-31 06:10 | EDPHYS ---
Physician Documentation [facility] Name: Ember Clark Age: 29 yrs Sex: Female : 1990 Arrival Date: 03/31/2020 Time: 04:18 Bed 8 Private MD: ED Physician Carlo Dias HPI: 03/31 04:47 This 29 yrs old Black Female presents to ER via Ambulatory with complaints of Chest tw4 Pain. 04:47 This 29 yrs old Black Female presents to ER via Ambulatory with complaints of Chest tw4 Pain. 04:47 The patient or guardian reports chest pain that is located primarily in the anterior tw4 chest wall. The pain does not radiate. Associated signs and symptoms: The patient has no apparent associated signs or symptoms. The chest pain is described as sharp. Duration: The patient or guardian reports a single episode. Duration: The patient or guardian reports a single episode, that is still ongoing. Severity of pain: At its worst the pain was moderate in the emergency department the pain is unchanged. The patient has not experienced similar symptoms in the past. 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 - Social history:: Smoking status: Patient reports the use of cigarette tobacco products, denies chronic smoking, but will smoke occasionally. ROS: 04:47 Constitutional: Negative for fever, chills, and weight loss, Eyes: Negative for injury, tw4 pain, redness, and discharge, Cardiovascular: Negative for chest pain, palpitations, and edema, Respiratory: Negative for shortness of breath, cough, wheezing, and pleuritic chest pain, Abdomen/GI: Negative for abdominal pain, nausea, vomiting, diarrhea, and constipation, Back: Negative for injury and pain, MS/Extremity: Negative for injury and deformity, Skin: Negative for injury, rash, and discoloration, Neuro: Negative for headache, weakness, numbness, tingling, and seizure. Exam: 04:47 Constitutional: This is a well developed, well nourished patient who is awake, alert, tw4 and in no acute distress. Head/Face: Normocephalic, atraumatic. Cardiovascular: Regular rate and rhythm with a normal S1 and S2. No gallops, murmurs, or rubs. Normal PMI, no JVD. No pulse deficits. Respiratory: Lungs have equal breath sounds bilaterally, clear to auscultation and percussion. No rales, rhonchi or wheezes noted. No increased work of breathing, no retractions or nasal flaring. Abdomen/GI: Soft, non-tender, with normal bowel sounds. No distension or tympany. No guarding or rebound. No evidence of tenderness throughout. Back: No spinal tenderness. No costovertebral tenderness. Full range of motion. Skin: Warm, dry with normal turgor. Normal color with no rashes, no lesions, and no evidence of cellulitis. MS/ Extremity: Pulses equal, no cyanosis. Neurovascular intact. Full, normal range of motion. Neuro: Awake and alert, GCS 15, oriented to person, place, time, and situation. Cranial nerves II-XII grossly intact. Motor strength 5/5 in all extremities. Sensory grossly intact. Cerebellar exam normal. Normal gait. 04:47 Chest/axilla: Inspection: normal, Palpation: tenderness, that is moderate, that totally reproduces the patient's complaints. Vital Signs: 04:30 BP 114 / 75; Pulse 73; Resp 20; Temp 98.7(O); Pulse Ox 100% on R/A; Pain 10/10; tt3 06:27 BP 126 / 83; Pulse 65; Resp 15; Temp 98.5; Pulse Ox 100% on R/A; rv MDM: 04:24 Patient medically screened. tw4 06:04 Differential diagnosis: cholecystitis, costochondritis, mitral valve prolapse, peptic tw4 ulcer disease, pericarditis, pulmonary embolus. Data reviewed: vital signs, nurses notes. Data interpreted: Pulse oximetry: Interpretation: normal. Special discussion: I discussed with the patient/guardian in detail that at this point there is no indication for admission to the hospital. It is understood, however, that if the symptoms persist or worsen the patient needs to return immediately for re-evaluation. 03/31 04:23 Order name: Basic Metabolic Panel; Complete Time: 05:58 tw4 03/31 05:59 Interpretation: Normal except: CL 109. tw4 03/31 04:23 Order name: CBC with Diff tw4 03/31 06:01 Interpretation: Normal except: HGB 9.4; HCT 31.1; MCV 64.6; MCH 19.6; MCHC 30.3; RDW tw4 18.6. 03/31 04:23 Order name: LFT's; Complete Time: 05:58 tw4 03/31 05:59 Interpretation: Within normal limits. tw4 03/31 04:23 Order name: Magnesium; Complete Time: 05:58 tw4 03/31 05:59 Interpretation: Within normal limits: MG 1.8. tw4 03/31 04:23 Order name: NT PRO-BNP; Complete Time: 05:58 tw4 03/31 05:59 Interpretation: Within normal limits: NT PRO-BNP 19. 03/31 04:23 Order name: PT-INR; Complete Time: 05:58 tw4 03/31 05:59 Interpretation: Within normal limits: PT 12.3. tw4 03/31 04:23 Order name: Troponin (emerg Dept Use Only); Complete Time: 05:58 tw4 03/31 06:00 Interpretation: Within normal limits: TROPED < 0.02. tw4 03/31 04:23 Order name: XRAY Chest (1 view) tw4 03/31 04:23 Order name: EKG; Complete Time: 04:25 4 03/31 04:23 Order name: Cardiac monitoring; Complete Time: 04:53 4 03/31 05:07 Order name: CBC Smear Scan EDMS 03/31 04:23 Order name: EKG - Nurse/Tech; Complete Time: 05:02 03/31 04:23 Order name: IV Saline Lock; Complete Time: 04:53 4 03/31 04:23 Order name: Labs collected and sent; Complete Time: 04:53 4 03/31 04:23 Order name: O2 Per Protocol; Complete Time: 04:53 4 03/31 04:23 Order name: O2 Sat Monitoring; Complete Time: 04:53 tw4 EC:05 Rate is 54 beats/min. Rhythm is regular, Sinus bradycardia. QRS [place] is Normal. MS tw4 interval is normal. QRS interval is normal. QT interval is normal. No Q waves. T waves are Normal. No ST changes noted. Clinical impression: Sinus bradycardia. Interpreted by me. Reviewed by me. Administered Medications: 04:53 Drug: TORadol 30 mg Route: IVP; Site: right antecubital; rv 06:04 Follow up: Response: No adverse reaction rv 05:50 Drug: morphine 4 mg {Note: rass 0.} Route: IVP; Site: right antecubital; rv 06:28 Follow up: Response: No adverse reaction; Marked relief of symptoms; Pain is decreased; rv RASS: Alert and Calm (0) 05:50 Drug: Zofran (Ondansetron) 4 mg Route: IVP; Site: right antecubital; rv 06:28 Follow up: Response: No adverse reaction rv Disposition: 03/31/20 06:10 Discharged to Home. Impression: COSTOCHONDRITIS. - Condition is Stable. - Discharge Instructions: Chest Wall Pain, [id number]-Cfza. - Prescriptions for Ibuprofen 800 mg Oral Tablet - take 1 tablet by ORAL route every 12 hours As needed take with food; 20 tablet. - Medication Reconciliation Form, Thank You Letter, Antibiotic Education, Prescription Opioid Use, Work release form form. - Follow up: Private Physician; When: Upon discharge from the Emergency Department; Reason: Recheck today's complaints, Continuance of care, Re-evaluation by your physician. - Problem is new. - Symptoms have improved. Signatures: Dispatcher [employer] EDCarlo Mejia MD MD tw4 Pedro El RN RN rv Corrections: (The following items were deleted from the chart) 06:28 06:10 03/31/2020 06:10 Discharged to Home. Impression: COSTOCHONDRITIS. Condition is rv Stable. Forms are Medication Reconciliation Form, Thank You Letter, Antibiotic Education, Prescription Opioid Use. Follow up: Private Physician; When: Upon discharge from the Emergency Department; Reason: Recheck today's complaints, Continuance of care, Re-evaluation by your physician. Problem is new. Symptoms have improved. tw4
--- NOTE | 2020-03-31 06:10 | ER ---
Nurse's Notes [facility] Name: Ember Clark Age: 29 yrs Sex: Female : 1990 Arrival Date: 03/31/2020 Time: 04:18 Bed 8 Private MD: Diagnosis: COSTOCHONDRITIS Presentation: 03/31 04:41 Chief complaint: Patient states: chest pain for weeks now. patient awaken by pain rv today, sharp and tight on the midsternal. denies nausea and vomiting. Coronavirus screen: Client denies travel out of the [place] in the last 14 days. Ebola Screen: No symptoms or risks identified at this time. Initial Sepsis Screen: Does the patient meet any 2 criteria? No. Patient's initial sepsis screen is negative. Does the patient have a suspected source of infection? No. Patient's initial sepsis screen is negative. Risk Assessment: Do you want to hurt yourself or someone else? Patient reports no desire to harm self or others. Onset of symptoms is unknown. 04:41 Method Of Arrival: Ambulatory rv 04:41 Acuity: MIKKI 3 rv Triage Assessment: 04:43 General: Appears uncomfortable, Behavior is anxious. Pain: Complains of pain in rv mid-sternal area Pain does not radiate. Pain currently is 10 out of 10 on a pain scale. Quality of pain is described as sharp. EENT: No signs and/or symptoms were reported regarding the EENT system. Neuro: Level of Consciousness is awake, alert, obeys commands, Oriented to person, place, time, situation. Cardiovascular: Patient's skin is warm and dry. Rhythm is sinus rhythm. Respiratory: Airway is patent Respiratory effort is even, unlabored, Breath sounds are clear bilaterally. Derm: Skin is intact. 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 - Social history:: Smoking status: Patient reports the use of cigarette tobacco products, denies chronic smoking, but will smoke occasionally. Screenin:44 Abuse screen: Denies threats or abuse. Denies injuries from another. Nutritional rv screening: No deficits noted. Tuberculosis screening: No symptoms or risk factors identified. Fall Risk None identified. Assessment: 04:44 Pain: Pain began weeks ago. rv 06:04 Reassessment: patient is still complaining of severe chest pain. vital signs stable. no rv change in cardiac rhythm. clear breath sounds. referred to Dr Dias. new orders received. given medications as ordered. Pain: Complains of pain in mid-sternal area. Vital Signs: 04:30 BP 114 / 75; Pulse 73; Resp 20; Temp 98.7(O); Pulse Ox 100% on R/A; Pain 10/10; tt3 06:27 BP 126 / 83; Pulse 65; Resp 15; Temp 98.5; Pulse Ox 100% on R/A; rv ED Course: 04:18 Patient arrived in ED. cl3 04:24 Carlo Dias MD is Attending Physician. tw4 04:41 Pedro El, RN is Primary Nurse. rv 04:41 XRAY Chest (1 view) In Process Unspecified. EDMS 04:42 Triage completed. rv 04:44 Arm band placed on right wrist. Patient placed in the treatment room, on a stretcher, rv Patient notified of wait time. 04:44 Patient has correct armband on for positive identification. Bed in low position. Call rv light in reach. Side rails up X 1. 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 04:45 No provider procedures requiring assistance completed. Patient maintains SpO2 rv saturation greater than 95% on room air. 04:45 Inserted saline lock: 20 gauge in right antecubital area, using aseptic technique. rv Blood collected. 04:45 Initial lab(s) drawn, by id, sent to lab. rv 05:02 EKG done, by ED staff, reviewed by Carlo Dias MD. rv 06:28 IV discontinued, intact, bleeding controlled, No redness/swelling at site. Pressure rv dressing applied. Administered Medications: 04:53 Drug: TORadol 30 mg Route: IVP; Site: right antecubital; rv 06:04 Follow up: Response: No adverse reaction rv 05:50 Drug: morphine 4 mg {Note: rass 0.} Route: IVP; Site: right antecubital; rv 06:28 Follow up: Response: No adverse reaction; Marked relief of symptoms; Pain is decreased; rv RASS: Alert and Calm (0) 05:50 Drug: Zofran (Ondansetron) 4 mg Route: IVP; Site: right antecubital; rv 06:28 Follow up: Response: No adverse reaction rv Outcome: 06:10 Discharge ordered by . tw4 06:27 Discharged to home ambulatory, with family. rv 06:27 Condition: improved 06:27 Discharge instructions given to patient, Instructed on discharge instructions, follow up and referral plans. medication usage, Demonstrated understanding of instructions, follow-up care, medications, Prescriptions given X 1. 06:28 Patient left the ED. rv Signatures: Dispatcher [employer] EDCarlo Mejia MD MD tw4 Pedro El RN RN Santosh Pagan cl3 Tae Page tt3
[2020-03-31 06:47] VITALS: BP 114/75; TEMP 98.7; O2SAT 100
[2020-03-31 07:02] LABS: White Blood Cell Scan OK (OK)
[2020-03-31 07:03] LABS: Anisocytosis 2+; Blood Morphology Comment NOTED (NOT SEEN); Hypochromasia 2+; Platelet Estimate ADEQ
--- NOTE | 2020-03-31 07:23 | EKG ---
Test Date: 2020-03-31 Test Time: 04:59:24 [employer] Assistants [employer]pers[employer]: RV MEASUREMENT RESULTS: Intervals: Rate: 54 ME: 154 QRSD: 74 QT: 434 QTc: 411 [place]: P: 77 ME: 154 QRS: 68 T: 49 INTERPRETIVE STATEMENTS: Sinus bradycardia Otherwise normal ECG Compared to ECG 08/17/2018 08:00:14 Sinus rhythm no longer present Electronically Signed On 03-31-20 07:22:17 E BUSINESS CONSULTANT by Luis Manuel Spain
--- NOTE | 2020-03-31 07:43 | RAD REPORT ---
EXAM DESCRIPTION: Fabiano Single View03/31/2020 4:41 am CLINICAL HISTORY: Chest pain COMPARISON: 2019 FINDINGS: The lungs appear clear of acute infiltrate. The heart is normal size IMPRESSION: No acute abnormalities displayed
== END 2020-03-31 06:28 | disposition home or self-care (01) ==
LOC: ER 04:18
DX: M94.0 Chondrocostal junction syndrome [Tietze] (principal); Z72.0 Tobacco use
CPT/HCPCS: 93005; 85025; 80048; 36415; 83735; 85610; 80076; 84484; 83880; 71045; 96375; 96374; 99285; J2405

== ENCOUNTER 2020-11-29 08:31 | Emergency (ER) | payer OTHER ==
--- OUTSIDE RECORDS SUMMARY | 2020-11-29 08:35 | XMS REPORT | Continuity of Care Document ---
:1990 Author Organization [facility] t Address [address] [place] [address] Care Team Providers Name Role Phone Jae Hdz Primary Care Physician Lab Attending Clinician Unavailable Jae Hdz Attending Clinician Payers Payer Name Policy Type Policy Effective Date Expiration Date Sour ce Number [facility] [id number] 2020 Univers ity of COMM PLAN - 00:00:00 [place] [facility]NAGED [facility] [place] [id number] caid Advance Directives Directive Decision Effective Termination Comments Source Date Date Healthcare Agents on N/A [facility] ersity FileNameRelationshipHealthcare of [place] Agent Medical RelationshipCommunicationSyuma Branch GriceMotherHealth Care [phone] (Mobile) Problems Condition Condition Condition Status Onset Resolution Last Treating Co mments Source Name Details Category Date Date Treatment Clinician Date Irregular Irregular Disease Active Uni vers menstrual menstrual 8-27 ity of cycle cycle 00:00: [address] History of History of Disease Active U nivers tubal tubal 8-27 ity of ligation ligation 00:00: [address] 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 7-18 ity of 00:00: [address] Contracept Contracept Disease Resolve 2018-2020-08-28 2020-08-28 Univers marga marga d 8-27 00:00:00 12:55:42 [place] [facility] [place] Breast Breast Disease Resolve 2020-08-28 2020-08-28 Univers tenderness tenderness d 07-18 00:00:00 12:55:39 [place] Screening Screening Disease Resolve 2019-01-16 2019-01-16 Univers for STD for STD d 07-18 00:00:00 19:36:48 [place] of (sexually ([place] transmit[place] transmitte 00 [place]ical d disease) d disease) Br anch History of History of Disease Resolve 2019-01-16 2019-01-16 Univers bilateral bilateral d 07-18 00:00:00 19:36:45 ity of tubal tubal 00:00: [place] ligation ligation 00 Medica l Branch Disease Resolve 2017-07-18 2017-07-18 Univers delivery delivery d 07-11 00:00:00 21:29:46 [place] Anxiety in Anxiety in Disease Resolve 2017-07-18 2017-07-18 Univers , , d 12-14 00:00:00 21:29:49 [place] of antepartum antepartum [place] Medical unspecifie unspecifie Br anch d d trimester trimester Encounter Encounter Disease Resolve 2017-07-18 2017-07-18 Univers for for d 12-14 00:00:00 21:30:06 it[place] of sterilizat sterilizat [place] Scheduled Scheduled Disease Resolve 2014-08-27 2014-08-27 Univers d 3 00:00:00 17:37:04 ity of 00:00: [place] 00 [facility] History of History of Disease Resolve 2014-08-27 2014-08-27 Univers d 12-14 00:00:00 17:37:04 [place] of delivery, [place], [place] , , Bran ch unspecifie unspecifie d d trimester trimester Immune to Immune to Disease Resolve 2014-07-22 2014-07-22 Univers varicella varicella d 12-17 00:00:00 12:40:04 ity of 00:00: [place] 00 Medical [facility] High-risk High-risk Disease Resolve 2014-07-22 2014-07-22 Univers , , d 12-14 00:00:00 12:40:02 ity of first first 00:00: [place] trimester trimester 00 Medi ankush [V23.9] [V23.9] Branch Pelvic Pelvic Disease Resolve 2014-06-13 2014-06-13 Univers pain pain d 12-18 00:00:00 15:46:46 [place] of complicati complicati [place] Medical Bran ch Abdominal Abdominal Disease Resolve 2014-06-13 2014-06-13 Univers pain, pain, d 12-17 00:00:00 15:46:52 [place]y of generalize generalize 00:[place] [facility] [place] Irregular Irregular Disease Resolve 2014-06-13 2014-06-13 Univers menstrual menstrual d 12-14 00:00:00 15:46:22 ity of cycle cycle 00:00: [place] 00 [facility] Unsure of Unsure of Disease Resolve 2014-06-13 2014-06-13 Univers LMP (last LMP (last d 12-14 00:00:00 15:46:44 [place] menstrual menstrual [place] period[place] as period) as 00 Me dical reason for reason for Br anch ultrasound ultrasound scan scan Rubella Rubella Disease Resolve 2014-06-13 2014-06-13 Univers immune immune d 12-07 00:00:00 15:57:13 ity of 00:00: [place] 00 Medical [facility] Depo-Prove Depo-Prove Disease Resolve 2013-12-14 2013-12-14 Univers ra ra d 12-07 00:00:00 18:44:15 [place] of contrace[place] marg[place] status marga status 00 Me dical Branch Encounter Encounter Disease Resolve 2013-12-14 2015-02-21 Univers for for d 12-07 00:00:00 23:51:53 ity of routine routine 00:00: [place] gynecologi gynecologi 00 Me dical ankush ankush Branch examinatio examinatio n n Bacterial Bacterial Disease Resolve 2013-12-14 2013-12-14 Univers vaginosis vaginosis d 12-07 00:00:00 18:44:11 ity of 00:00: [place] 00 Medical Branch General General Disease Resolve 2012-12-07 2012-12-07 Univers counseling counseling d 3-12 00:00:00 14:27:53 ity of for for 00:00: [place] initiation initiation 00 Me dical of other of other Branch contracept contracept marga marga measures measures Disease Resolve 2012-12-07 2015-02-21 Univers delivery delivery d 10-10 00:00:00 23:00:20 [place] Anemia of Anemia of Disease Resolve 2012-12-07 2015-02-21 Univers mother mother d 10-10 00:00:00 23:00:20 ity of during during 00:00: [place] , , 00 Me dical delivered delivered Bran ch Disease Resolve 2006-052008-10-10 2015-02-21 Univers delivery delivery d 0-08 00:00:00 22:35:50 [place] Other Other Disease Resolve 2006-052008-10-10 2008-10-11 Univers specified specified d 0-04 00:00:00 00:47:23 [place] and and [place] placental placental 00 Medi ankush problems problems Branch affecting affecting management management of mother, of mother, antepartum antepartum Fever and Fever and Disease Resolve 2006-052008-10-10 2015-02-21 Univers other other d 0-04 00:00:00 22:35:45 [place] of physiologi physiologi [place] c c 00 Medical disturbanc disturbanc Br anch es of es of temperatur temperatur e e regulation regulation 33-34 33-34 Disease Resolve 2006-052007-02-27 2007-02-27 Univers completed completed d 0-04 00:00:00 05:29:36 ity of weeks of weeks of 00:00: [place] gestation( gestation( 00 Me dical 765.27) 765.27) Branch Allergies, Adverse Reactions, Alerts This patient has no known allergies or adverse reactions. Social History Social Habit Start Date Stop Date Quantity Comments Source History of 2013-12-07 Smoker University of tobacco use 00:00:00 [facility] Exposure to Not sure University of SARS-CoV-2 [facility] (event) [place] Tobacco use and 2020-09-11 2020-09-11 Never used Universit y of exposure 00:00:00 00:00:00 [facility] Alcohol intake 2020-09-11 2020-09-11 Current drinker Unive rsity of 00:00:00 00:00:00 of alcohol [facility] (finding) [place] Alcohol Comment 2017-07-18 2017-07-18 social Universit y of 00:00:00 00:00:00 [facility] Sex Ass[birth year] At [birth year] Universit y of 00:00:00 00:00:00 [facility] Smoking Status Start Date Stop Date Source Former smoker 2020-09-11 00:00:00 2020-09-11 00:00:00 Universi ty of [facility] Medications This patient has no known medications. Immunizations Ordered Filled Immunization Date Status Comments [facility] e Immunization Name Name TDAP 2014-05-30 Completed University of 00:00:00 [facility] Influenza Virus 2014-04-04 Completed Universit y of Vaccine Quad IM 00:00:00 [facility] ical Multi-dose 6+ MO Branch TDAP 2012-11-06 Completed University of 00:00:00 [facility] Influenza Virus 2010-05-12 Completed Universit y of Vaccine 00:00:00 [facility] Rubella 2010-01-29 Completed University of 00:00:00 [facility] Procedures This patient has no known procedures. Plan of Care Planned Activity Planned Date Details Comments Source Future Scheduled 2024-05-30 DTaP,Tdap,and Td Univers ity [facility] [place] [facility] Test 00:00:00 Vaccines (3 - Td) Medical Br anch [code = DTaP,Tdap,and Td Vaccines (3 - Td)] Future Scheduled 2023-08-29 Screening for University [facility] [place] [facility] Test 00:00:00 malignant neoplasm of Medica l Branch cervix (procedure) [code = 962606684] Future Scheduled 2021-08-28 [facility] [code = Medical Branch [id number]] Future Scheduled 2021-01-21 INFLUENZA VACCINE [facility] [place] Test 00:00:00 (Season Ended) [code Medical Branch = INFLUENZA VACCINE (Season Ended)] Future Scheduled 2007-12-12 Hepatitis C screening [facility] [place] Test 00:00:00 (procedure) [code = Medical Branch [id number]] Future Scheduled 2005 SARS-CoV-2 (COVID-19) [facility] [place] Test 00:00:00 Vaccine (1) [code = Medical Branch SARS-CoV-2 (COVID-19) Vaccine (1)] Future Scheduled TRICHOMONAS AMPLIFIED [facility] [place] Test ASSAY [code = Medical Branch 66915-6] Encounters Start End Encounter Admission Attending Care Care Encounter Source Date/Time Date/Time Type Type Clinicians Facility Department ID 2020-09-25 2020-09-25 Deposit Refund Clerk Lab, [facility] [id number] 07:46:58 08:17:24 [facility] MOLD PARTER [id number] REGIONAL [id number] MATERNAL [id number] & CHILD [address] [place] [address] Results This patient has no known results.
[2020-11-29 09:24] LABS: Absolute Lymphocytes (CBC) 1.4 K/uL (0.7-4.9); Basophils % 1.6 % (0-1.3); Hematocrit 30.3 % (36.0-45.0); Lymphocytes % 33.9 % (15.3-44.8); MPV 9.2 fL (7.6-11.3); RBC Red Blood Cell Count 4.59 M/uL (3.86-4.86)
[2020-11-29 09:29] LABS: Protime INR 1.11
[2020-11-29 09:42] LABS: ALT/SGPT 33 U/L (12-78); AST/SGOT 31 U/L (15-37); Albumin 3.9 g/dL (3.4-5.0); Alkaline Phosphatase 52 U/L (45-117); BUN Blood Urea Nitrogen 12 mg/dL (7-18); Bicarbonate 23 mmol/L (21-32); Bilirubin Direct 0.1 mg/dL (0-0.2); Bilirubin Total 0.6 mg/dL (0.2-1.0); Glucose Level 120 mg/dL (74-106); NT PRO-BNP 24 pg/mL (<125); Potassium 3.8 mmol/L (3.5-5.1); Protein, Total 7.2 g/dL (6.4-8.2); Sodium Level 140 mmol/L (136-145); Troponin (Emerg Dept Use Only) < 0.02 ng/mL (0.0-0.045)
--- NOTE | 2020-11-29 09:48 | RAD REPORT ---
EXAM DESCRIPTION: RAD - Chest Single View - 11/29/2020 9:43 am CLINICAL HISTORY: CHEST PAIN COMPARISON: Portable March 2020 TECHNIQUE: AP portable chest image was obtained 11/29/2020 9:43 am . FINDINGS: Lungs are clear. Heart and vasculature are normal. No measurable pleural effusion and no p neumothorax. No acute bony abnormality seen. No acute aortic findings suspected. IMPRESSION: No acute cardiopulmonary process.
[2020-11-29 09:50] LABS: Anisocytosis 2+; Blood Morphology Comment NOTED (NOT SEEN); Platelet Estimate ADEQ; White Blood Cell Scan OK (OK)
[2020-11-29 09:51] LABS: Target Cells 1+
[2020-11-29 09:52] LABS: Hypochromasia 2+; Polychromasia SLIGHT
--- NOTE | 2020-11-29 10:04 | ER ---
Nurse's Notes [facility] Name: Ember Clark Age: 29 yrs Sex: Female : 1990 Arrival Date: 11/29/2020 Time: 08:34 Bed 20 Private MD: Diagnosis: Chest pain, unspecified Presentation: 11/29 08:38 Chief complaint: Patient states: Dizziness and chest pain started on Tuesday. Passed rb3 out at work on Tuesday and EMS was toned out but the pt refused transport at that time. 08:38 Coronavirus screen: At this time, the client does not indicate any symptoms associated rb3 with coronavirus-19. Ebola Screen: Patient denies travel to an Ebola-affected area in the 21 days before illness onset. Initial Sepsis Screen: Does the patient meet any 2 criteria? No. Patient's initial sepsis screen is negative. Does the patient have a suspected source of infection? No. Patient's initial sepsis screen is negative. Risk Assessment: Do you want to hurt yourself or someone else? Patient reports no desire to harm self or others. Onset of symptoms was November 25, 2020. 08:38 Method Of Arrival: Wheelchair rb3 08:38 Acuity: MIKKI 3 rb3 Triage Assessment: 08:38 General: Appears in no apparent distress. comfortable, Behavior is calm, cooperative, rb3 Denies fever. Pain: Complains of pain in mid-sternal area Pain does not radiate. Pain currently is 7 out of 10 on a pain scale. Neuro: Level of Consciousness is awake, alert, obeys commands, Oriented to person, place, time, situation. Neuro: Reports dizziness. Cardiovascular: Patient's skin is warm and dry. Respiratory: Airway is patent Respiratory effort is even, unlabored, Respiratory pattern is regular, symmetrical, Denies cough, shortness of breath. GI: No signs and/or symptoms were reported involving the gastrointestinal system. : No signs and/or symptoms were reported regarding the genitourinary system. Musculoskeletal: Range of motion: intact in all extremities. DATA ARCHITECT: 08:38 LMP 11/14/2020 rb3 Historical: - Allergies: 08:38 No Known Allergies; rb3 - Home Meds: 08:38 None [Active]; rb3 - PMHx: 08:38 carpal tunnel; rb3 08:38 Anemia; rb3 - PSHx: 08:38 section; Cholecystectomy; rb3 - Immunization history:: Adult Immunizations up to date. - Social history:: Smoking status: Patient reports the use of cigarette tobacco products, denies chronic smoking, but will smoke occasionally. Screenin:38 Abuse screen: Denies threats or abuse. Nutritional screening: No deficits noted. rb3 Tuberculosis screening: No symptoms or risk factors identified. 08:38 Fall Risk None identified. rb3 Assessment: 08:38 General: See triage assessment. rb3 09:20 Reassessment: X-ray at the bedside. rb3 09:30 Reassessment: Patient appears in no apparent distress at this time. No changes from rb3 previously documented assessment. 10:21 Reassessment: Patient appears in no apparent distress at this time. Patient and/or rb3 family updated on plan of care and expected duration. Pain level reassessed. Patient is alert, oriented x 3, equal unlabored respirations, skin warm/dry/pink. Vital Signs: 08:38 BP 111 / 82; Pulse 65; Resp 17; Temp 97.8(TE); Pulse Ox 100% ; Weight 59.42 kg; Height rb3 5 ft. 6 in. (167.64 cm); Pain 7/10; 08:58 BP 127 / 71 Supine; Pulse 61; Resp 13; Pulse Ox 100% ; rb3 08:59 BP 120 / 73 Sitting; Pulse 64; Resp 12; Pulse Ox 100% ; rb3 09:00 BP 127 / 88 Standing; Pulse 77; Resp 16; Pulse Ox 100% ; rb3 09:53 BP 126 / 78; Pulse 54; Resp 14; Pulse Ox 100% ; rb3 10:21 BP 126 / 78; Pulse 63; Resp 14; Pulse Ox 100% ; rb3 08:38 Body Mass Index 21.14 (59.42 kg, 167.64 cm) rb3 ED Course: 08:34 Patient arrived in ED. as 08:38 Ej Olivas PA is PHCP. jr8 08:38 Carlo Dias MD is Attending Physician. jr8 08:38 Arm band placed on right wrist. rb3 08:38 Patient has correct armband on for positive identification. Bed in low position. Call rb3 light in reach. Side rails up X 1. quality assurance monitor body on. Pulse ox on. NIBP on. Warm blanket given. 08:38 Patient maintains SpO2 saturation greater than 95% on room air. rb3 08:43 Vero Mclaughlin, RN is Primary Nurse. rb3 08:46 Triage completed. rb3 09:15 Inserted saline lock: 20 gauge in right antecubital area, using aseptic technique. rb3 Blood collected. 09:43 XRAY Chest (1 view) In Process Unspecified. EDMS 10:03 Luis Manuel Spain MD is Referral Physician. jr8 10:21 No provider procedures requiring assistance completed. IV discontinued, intact, rb3 bleeding controlled, No redness/swelling at site. Pressure dressing applied. Administered Medications: No medications were administered Outcome: 10:03 Discharge ordered by . jr8 10:21 Discharged to home via wheelchair. rb3 10:21 Condition: stable 10:21 Discharge instructions given to patient, Instructed on discharge instructions, follow up and referral plans. Demonstrated understanding of instructions, follow-up care, Prescriptions given X none 10:22 Patient left the ED. rb3 Signatures: Dispatcher [employer] EDIA Chantelle Resendiz Josh, NICKI PA jr8 Vero Mclaughlin, RN RN rb3
--- NOTE | 2020-11-29 10:04 | EDPHYS ---
Physician Documentation [facility] Name: Ember Clark Age: 29 yrs Sex: Female : 1990 Arrival Date: 11/29/2020 Time: 08:34 Bed 20 Private MD: ED Physician Carlo Dias HPI: 11/29 09:44 This 29 yrs old Black Female presents to ER via Wheelchair with complaints of jr8 Dizziness, Chest Pain. 09:44 The patient or guardian reports chest pain that is located primarily in the anterior jr8 chest wall, bilaterally. The pain does not radiate. Associated signs and symptoms: Pertinent positives: dizziness, shortness of breath. The chest pain is described as a pressure. Duration: The patient or guardian reports multiple episodes, that are intermittent, that wax and wane. Modifying factors: The symptoms are alleviated by rest, the symptoms are aggravated by emotionally stressful situations, exertion. Severity of pain: At its worst the pain was moderate in the emergency department the pain has improved mildly. The patient has experienced similar episodes in the past, several times. The patient has not recently seen a physician. 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 - Social history:: Smoking status: Patient reports the use of cigarette tobacco products, denies chronic smoking, but will smoke occasionally. ROS: 09:44 Eyes: Negative for injury, pain, redness, and discharge, ENT: Negative for injury, jr8 pain, and discharge, Neck: Negative for injury, pain, and swelling, Respiratory: Negative for shortness of breath, cough, wheezing, and pleuritic chest pain, Abdomen/GI: Negative for abdominal pain, nausea, vomiting, diarrhea, and constipation, Back: Negative for injury and pain, MS/Extremity: Negative for injury and deformity, Skin: Negative for injury, rash, and discoloration. 09:44 Cardiovascular: Positive for chest pain, Negative for edema, orthopnea, palpitations, paroxysmal nocturnal dyspnea. 09:44 Neuro: Positive for dizziness, Negative for altered mental status, gait disturbance, headache. Exam: 09:44 Constitutional: This is a well developed, well nourished patient who is awake, alert, jr8 and in no acute distress. ENT: Nares patent. No nasal discharge, no septal abnormalities noted. Tympanic membranes are normal and external auditory canals are clear. Oropharynx with no redness, swelling, or masses, exudates, or evidence of obstruction, uvula midline. Mucous membranes moist. Neck: Trachea midline, no thyromegaly or masses palpated, and no cervical lymphadenopathy. Supple, full range of motion without nuchal rigidity, or vertebral point tenderness. No Meningismus. Chest/axilla: Normal chest wall appearance and motion. Nontender with no deformity. No lesions are appreciated. Cardiovascular: Regular rate and rhythm with a normal S1 and S2. No gallops, murmurs, or rubs. Normal PMI, no JVD. No pulse deficits. Respiratory: Lungs have equal breath sounds bilaterally, clear to auscultation and percussion. No rales, rhonchi or wheezes noted. No increased work of breathing, no retractions or nasal flaring. Abdomen/GI: Soft, non-tender, with normal bowel sounds. No distension or tympany. No guarding or rebound. No evidence of tenderness throughout. Back: No spinal tenderness. No costovertebral tenderness. Full range of motion. Skin: Warm, dry with normal turgor. Normal color with no rashes, no lesions, and no evidence of cellulitis. MS/ Extremity: Pulses equal, no cyanosis. Neurovascular intact. Full, normal range of motion. Neuro: Awake and alert, GCS 15, oriented to person, place, time, and situation. Cranial nerves II-XII grossly intact. Motor strength 5/5 in all extremities. Sensory grossly intact. Cerebellar exam normal. Normal gait. Vital Signs: 08:38 BP 111 / 82; Pulse 65; Resp 17; Temp 97.8(TE); Pulse Ox 100% ; Weight 59.42 kg; Height rb3 5 ft. 6 in. (167.64 cm); Pain 7/10; 08:58 BP 127 / 71 Supine; Pulse 61; Resp 13; Pulse Ox 100% ; rb3 08:59 BP 120 / 73 Sitting; Pulse 64; Resp 12; Pulse Ox 100% ; rb3 09:00 BP 127 / 88 Standing; Pulse 77; Resp 16; Pulse Ox 100% ; rb3 09:53 BP 126 / 78; Pulse 54; Resp 14; Pulse Ox 100% ; rb3 10:21 BP 126 / 78; Pulse 63; Resp 14; Pulse Ox 100% ; rb3 08:38 Body Mass Index 21.14 (59.42 kg, 167.64 cm) rb3 MDM: 08:38 Patient medically screened. 10:02 Differential diagnosis: abnormal EKG, acute myocardial infarction, anxiety, chest wall jr8 pain, cholecystitis, Cholelithiasis costochondritis, gastritis, pancreatitis, pneumonia, pulmonary embolus, stable angina, thoracic aortic disection, unstable angina. Data reviewed: vital signs, nurses notes, lab test result(s), EKG, radiologic studies, plain films. Data interpreted: Pulse oximetry: on room air is 100 %. Interpretation: normal. 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 Special discussion: Based on the patient's history, exam, and Dx evaluation, there is no indication for emergent intervention or inpatient Tx. It is understood by the patient/guardian that if the Sx's persist or worsen they need to return immediately for re-evaluation. 11/29 09:03 Order name: Basic Metabolic Panel 11/29 09:03 Order name: CBC with Diff; Complete Time: 10:02 11/29 09:03 Order name: LFT's; Complete Time: 09:43 11/29 09:03 Order name: Magnesium; Complete Time: :43 11/29 09:03 Order name: NT PRO-BNP; Complete Time: 09:43 11/29 09:03 Order name: PT-INR; Complete Time: 10:02 11/29 09:03 Order name: Troponin (emerg Dept Use Only); Complete Time: :43 11/29 09:03 Order name: XRAY Chest (1 view); Complete Time: 10:02 /10 09:03 Order name: EKG; Complete Time: 09:04 jr8 11/29 09:03 Order name: Cardiac monitoring; Complete Time: 09:04 jr8 11/29 09:03 Order name: EKG - Nurse/Tech; Complete Time: 09:04 jr8 11/29 09:03 Order name: IV Saline Lock; Complete Time: 09:18 jr8 11/29 09:04 Order name: Basic Metabolic Panel; Complete Time: 09:43 EDMS 11/29 09:26 Order name: CBC Smear Scan; Complete Time: 10:02 EDMS 11/29 09:03 Order name: Labs collected and sent; Complete Time: 09:18 jr8 11/29 09:03 Order name: O2 Per Protocol; Complete Time: 09: jr8 11/29 09:03 Order name: O2 Sat Monitoring; Complete Time: 09:04 jr8 11/29 09:03 Order name: Orthostatics; Complete Time: 09:04 jr8 Administered Medications: No medications were administered Disposition: 15:28 Co-signature as Attending Physician, Carlo Dias MD I agree with the assessment and tw4 plan of care. Disposition Summary: 11/29/20 10:03 Discharge Ordered Location: Home jr8 Problem: new jr8 Symptoms: have improved jr8 Condition: Stable jr8 Diagnosis - Chest pain, unspecified jr8 Followup: jr8 - With: Luis Manuel Spain MD - When: 2 - 3 days - Reason: Recheck today's complaints, Continuance of care, Re-evaluation by your physician Discharge Instructions: - Discharge Summary Sheet jr8 - Nonspecific Chest Pain, Adult jr8 Forms: - Medication Reconciliation Form jr8 - Thank You Letter jr8 - Antibiotic Education jr8 - Prescription Opioid Use jr8 - Work release form rb3 Signatures: Dispatcher [employer] EDCO Ej Olivas PA PA jr8 Carlo Dias MD MD tw4 Vero Mclaughlin, RN RN rb3
[2020-11-29 10:37] VITALS: O2SAT 100
[2020-11-29 10:44] VITALS: TEMP 97.8
[2020-11-29 10:45] VITALS: BP 126/78
--- NOTE | 2020-12-01 16:11 | EKG ---
Test Date: 2020-11-29 Test Time: 08:46:06 Coil Connector: [id number] MEASUREMENT RESULTS: Intervals: Rate: 68 PA: 148 QRSD: 76 QT: 414 QTc: 440 Depue: P: 84 PA: 148 QRS: 83 T: 74 INTERPRETIVE STATEMENTS: Normal sinus rhythm with sinus arrhythmia Normal ECG Compared to ECG 03/31/2020 04:59:24 Sinus bradycardia no longer present Electronically Signed On 12-01-20 16:05:23 CDT by Luis Manuel Spain
== END 2020-11-29 10:22 | disposition home or self-care (01) ==
LOC: ER 08:31
DX: R07.9 Chest pain, unspecified (principal); F17.210 Nicotine dependence, cigarettes, uncomplicated
CPT/HCPCS: 36415; 71045; 80048; 80076; 83735; 83880; 84484; 85025; 85610; 93005; 99285

== ENCOUNTER 2021-08-05 09:13 | Emergency (ER) | payer OTHER ==
--- OUTSIDE RECORDS SUMMARY | 2021-08-05 09:17 | XMS REPORT | Continuity of Care Document ---
:1990 Author Organization [facility] t Address [address] [place] [address] Care Team Providers Name Role Phone Jae Hdz Primary Care Physician Jae KIRK Attending Clinician Unavailable Adam MCCLOUD Attending Clinician Unavailable Lab Attending Clinician Unavailable Jae Hdz Attending Clinician Adam Barry Attending Clinician Doctor Unassigned, Name Attending Clinician Unavailable Singer MATTHEWS Attending Clinician Payers Payer Name Policy Type Policy Number Effective Date Expiration Date Ubaldo appiah [facility] STAR [id number] 2020 00:00:00 Advance Directives Directive Decision Effective Termination Comments Source Date Date Healthcare Agents on N/A [facility] FileNameRelationshipHealthcare [facility] Agent Medical RelationshipCommunicationSy Branch GriceMotherHealth Care [phone] (Mobile) Problems Condition Condition Condition Status Onset Resolution Last Treating Co mments Source Name Details Category Date Date Treatment Clinician Date Contracept Contracept Disease Active 2019-0 U nivers marga marga 01-16 ity [place] management management [id number] Well woman Well woman Disease Active 2019-0 U nivers exam exam 01-16 ity of 00:00: [address] Contracept Contracept Disease Active 2019-0 U nivers marga marga 01-16 [place] [facility] Irregular Irregular Disease Active 2019-0 Uni vers menstrual menstrual 8-27 ity of cycle cycle 00:00: [place] 00 [facility] History of History of Disease Active U nivers tubal tubal 8 ity of ligation ligation 00:00: [place] 00 [facility] Encounter Encounter Disease Active Uni vers for well for well 2 [place] exam [place] [facility] Encounter Encounter Disease Active Uni vers for for 07-18 [place] contrace[place]pt [place] marga marga Medical management management Br anch , , unspecifie unspecifie d type d type History of History of Disease Active U nivers bilateral bilateral 07-18 ity of tubal tubal 00:00: [place] ligation ligation 00 Medica l Branch Screening Screening Disease Active Uni vers for STD for STD 07-18 [place] of (sexually ([place] transmit[place] transmitte 00 Me dical d disease) d disease) Br anch Breast Breast Disease Active Univers tenderness tenderness 07-18 it [place] of in female [place] [facility] [place] 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 7-18 ity of 00:00: [place] 00 [facility] Disease Resolve 2017-07-18 2017-07-18 Univers delivery delivery d 2- 00:00:00 21:29:46 [place] [facility] Anxiety in Anxiety in Disease Resolve 2017-07-18 2017-07-18 Univers , , d 7- 00:00:00 21:29:49 [place] of antepartum antepartum [place] , [place] Medical unspecifie unspecifie Br anch d d trimester trimester Encounter Encounter Disease Resolve 2017-07-18 2017-07-18 Univers for for d 7- 00:00:00 21:30:06 it[place] of sterilizat sterilizat [place] Scheduled Scheduled Disease Resolve 2014-08-27 2014-08-27 Univers d 3- 00:00:00 17:37:04 ity of 00:00: [place] 00 Medical Branch History of History of [...] first first 00:00: [place] trimester trimester 00 [facility] [V23.9] [V23.9] Branch Pelvic Pelvic Disease Resolve [...] Resolve 2012-12-07 2012-12-07 Univers counseling counseling d - 00:00:00 14:27:53 ity of for for 00:00: [place] initiation initiation 00 Me dical of other of other Branch contracept contracept mraga marga measures measures Disease Resolve 2012-12-07 2015-02-21 Univers delivery delivery d 5- 00:00:00 23:00:20 [place] Anemia of Anemia of Disease Resolve 2012-12-07 2015-02-21 Univers mother mother d 10-10 00:00:00 23:00:20 ity of during during 00:00: [place] , , 00 Me dical delivered delivered [...] ity of weeks of weeks of 00:00: [place] gestation( gestation( 00 Me dical 765.27) 765.27) Branch Allergies, Adverse Reactions, Alerts Allergy Allergy Status Severity Reaction(s) Onset Inactive Treating Comm ents Source Name Type Date Date Clinician NO KNOWN Drug Active Univers ALLERGIE Class ity of S [facility] Social History Social Habit Start Date Stop Date Quantity Comments Source History of 2013-12-07 Smoker University of tobacco use 00:00:00 [facility] Exposure to Not sure [facility] SARS-CoV-2 [facility] (event) [place] Tobacco use and 2020-09-11 2020-09-11 Never used Universit y of exposure 00:00:00 00:00:00 [facility] Alcohol intake 2020-09-11 2020-09-11 Current drinker Unive rsity of 00:00:00 00:00:00 of alcohol [facility] (finding) [place] Alcohol Comment 2017-07-18 2017-07-18 social Universit y of 00:00:00 00:00:00 [facility] Sex Ass[birth year] At [birth year] Universit y of 00:00:00 00:00:00 [facility] Smoking Status Start Date Stop Date Source Former smoker 2020-09-11 00:00:00 2020-09-11 00:00:00 Universi ty of [facility] Medications Ordered Filled Start Stop Current Ordering Indication Dosage Frequency Signature Comments Components Source Medication Medication Date Date Medication? Clinician (SIG) Name Name metroNIDAZO 2020- No [id number] 2000mg Take 4 Univers LE (FLAGYL) 09-01- tablets by i ty of 500 mg 00:00: 04:59 [place] tablet 00 :00 now for 1 Medical dose. Branch cephALEXin 2020- No [id number] 500mg Take 1 Univers (KEFLEX) 08-28 capsule by ity of 500 mg 00:00: 04:59 mouth 2 [place] capsule 00 :00 (two) Medical times Branch daily for 10 days. cephALEXin 2020- No [id number] 500mg Take 1 Univers (KEFLEX) 08-28 capsule by ity of 500 mg 00:00: 04:59 mouth 2 [place] capsule 00 :00 (two) Medical times Branch daily for 10 days. cephALEXin 2020- No [id number] 500mg Take 1 Univers (KEFLEX) 08-28 capsule by ity of 500 mg 00:00: 04:59 mouth 2 [place] capsule 00 :00 (two) Medical times Branch daily for 10 days. naproxen 2019-05 Yes [id number] 550mg Take 1 Un thiago sodium 2-07 tablet by ity of (ANAPROX 00:00: mouth 2 [place] DS) 550 mg 00 (two) Medical tablet times Branch daily with meals. methylPREDN 2019-05 Yes [id number] Take by Univers ISolone - mouth ity of (MEDROL, 00:00: SEE-INSTRU [place] as BLU,) 4 mg 00 CTIONS. Medica l tablets follow Branch package directions naproxen 2019-05 Yes [id number] 550mg Take 1 Un [place] sodium 2-07 tablet by ity of (ANAPROX 00:00: mouth 2 [place] DS) 550 mg 00 (two) Medical tablet times Branch daily with meals. methylPREDN 2019-05 Yes [id number] Take by Univers ISolone 07 mouth ity of (MEDROL, 00:00: SEE-INSTRU [place] BLU,) 4 mg 00 CTIONS. Medica l tablets follow Branch package directions naproxen 2019-05- No [id number] 550mg Take 1 U nivers sodium 2-11 23-08 tablet by ity of (ANAPROX 00:00: 00:00 mouth 2 [place] DS) 550 mg 00 :00 (two) Medical tablet times Branch daily with meals. methylPREDN 2019-05- No [id number] Take by Univers ISolone 06-29-08 mouth ity of (MEDROL, 00:00: 00:00 [place] BLU,) 4 mg 00 :00 CTIONS. Medica l tablets follow Branch package directions naproxen 2019-05 No [id number] 550mg Take 1 U nivers sodium 2-07 04-08 tablet by ity of (ANAPROX 00:00: 00:00 mouth 2 [place] DS) 550 mg 00 :00 (two) Medical tablet times Branch daily with meals. methylPREDN 2019-05- No [id number] Take by Univers ISolone 2-07 04-08 mouth ity of (MEDROL, 00:00: 00:00 [place]IN[place] BLU,) 4 mg 00 :00 CTIONS. Medica l tablets follow Branch package directions levonorgest Yes [id number] 1{tbl} Take 1 Univers rel-ethinyl 8-27 tablet by ity of estradiol 00:00: mouth [place] (SRONYX) 00 daily. Medical 0.1-20 Branch mg-mcg per tablet levonorgest Yes [id number] 1{tbl} Take 1 Univers rel-ethinyl 8-27 tablet by ity of estradiol 00:00: mouth [place] (SRONYX) 00 daily. Medical 0.1-20 Branch mg-mcg per tablet levonorgest Yes [id number] 1{tbl} Take 1 Univers rel-ethinyl 8-27 tablet by ity of estradiol 00:00: mouth [place] (SRONYX) 00 daily. Medical 0.1-20 Branch mg-mcg per tablet levonorgest Yes [id number] 1{tbl} Take 1 Univers rel-ethinyl 8-27 tablet by ity of estradiol 00:00: mouth [place] (SRONYX) 00 daily. Medical 0.1-20 Branch mg-mcg per tablet levonorgest Yes [id number] 1{tbl} Take 1 Univers rel-ethinyl 8-27 tablet by ity of estradiol 00:00: mouth [place] (SRONYX) 00 daily. Medical 0.1-20 Branch mg-mcg per tablet levonorgest 2020- No [id number] 1{tbl} Take 1 Univers rel-ethinyl 8-27 04-08 tablet by it y of estradiol 00:00: 00:00 mouth [place] (SRONYX) 00 :00 daily. Medical 0.1-20 Branch mg-mcg per tablet levonorgest 2020- No [id number] 1{tbl} Take 1 Univers rel-ethinyl 8-27 04-08 tablet by it y of estradiol 00:00: 00:00 mouth [place] (SRONYX) 00 :00 daily. Medical 0.1-20 Branch mg-mcg per tablet ibuprofen 2019-0 Yes [id number] 600mg Take 1 U nivers 600 mg 3-25 tablet by ity of tablet 00:00: mouth [place] 00 every 6 Medical (six) Branch hours as needed for Pain (scale 4-6). ondansetron 2019-0 Yes [id number] 4mg Take 1 Univers (ZOFRAN 3-25 tablet by ity of ODT) 4 mg 00:00: mouth [place] disintegrat 00 every 8 Medic al ing tablet (eight) Branch hours as needed for Nausea and Vomiting (N/V). benzonatate 2019-0 Yes [id number] 100mg Take 1 Univers 100 mg 3-25 capsule by ity of capsule 00:00: mouth 3 [place] 00 (three) Medical times Branch daily as needed for Cough. ibuprofen 2018-0 Yes [id number] 600mg Take 1 U nivers 600 mg 3-25 tablet by ity of tablet 00:00: mouth [place] 00 every 6 Medical (six) Branch hours as needed for Pain (scale 4-6). ondansetron 2019-0 Yes [id number] 4mg Take 1 Univers (ZOFRAN 3-25 tablet by ity of ODT) 4 mg 00:00: mouth [place] disintegrat 00 every 8 Medic al ing tablet (eight) Branch hours as needed for Nausea and Vomiting (N/V). benzonatate 2019-0 Yes [id number] 100mg Take 1 Univers 100 mg 3-25 capsule by ity of capsule 00:00: mouth 3 [place] 00 (three) Medical times Branch daily as needed for Cough. ibuprofen 2018-0 Yes [id number] 600mg Take 1 U nivers 600 mg 3-25 tablet by ity of tablet 00:00: mouth [place] 00 every 6 Medical (six) Branch hours as needed for Pain (scale 4-6). ondansetron 2019-0 Yes [id number] 4mg Take 1 Univers (ZOFRAN 3-25 tablet by ity of ODT) 4 mg 00:00: mouth [place] disintegrat 00 every 8 Medic al ing tablet (eight) Branch hours as needed for Nausea and Vomiting (N/V). benzonatate 2019-0 Yes [id number] 100mg Take 1 Univers 100 mg 3-25 capsule by ity of capsule 00:00: mouth 3 [place] 00 (three) Medical times Branch daily as needed for Cough. ibuprofen 2019-0 Yes [id number] 600mg Take 1 U nivers 600 mg 3-25 tablet by ity of tablet 00:00: mouth [place] 00 every 6 Medical (six) Branch hours as needed for Pain (scale 4-6). ondansetron 2019-0 Yes [id number] 4mg Take 1 Univers (ZOFRAN 3-25 tablet by ity of ODT) 4 mg 00:00: mouth [place] disintegrat 00 every 8 Medic al ing tablet (eight) Branch hours as needed for Nausea and Vomiting (N/V). benzonatate 2019-0 Yes [id number] 100mg Take 1 Univers 100 mg 3-25 capsule by ity of capsule 00:00: mouth 3 [place] 00 (three) Medical times Branch daily as needed for Cough. ibuprofen 2019-0 Yes [id number] 600mg Take 1 U nivers 600 mg 3-25 tablet by ity of tablet 00:00: mouth [place] 00 every 6 Medical (six) Branch hours as needed for Pain (scale 4-6). ondansetron 2019-0 Yes [id number] 4mg Take 1 Univers (ZOFRAN 3-25 tablet by ity of ODT) 4 mg 00:00: mouth [place] disintegrat 00 every 8 Medic al ing tablet (eight) Branch hours as needed for Nausea and Vomiting (N/V). benzonatate 2019-0 Yes [id number] 100mg Take 1 Univers 100 mg 3-25 capsule by ity of capsule 00:00: mouth 3 [place] 00 (three) Medical times Branch daily as needed for Cough. ibuprofen 2019-0 Yes [id number] 600mg Take 1 U nivers 600 mg 3-25 tablet by ity of tablet 00:00: mouth [place] 00 every 6 Medical (six) Branch hours as needed for Pain (scale 4-6). ondansetron 2019-0 Yes [id number] 4mg Take 1 Univers (ZOFRAN 3-25 tablet by ity of ODT) 4 mg 00:00: mouth [place] disintegrat 00 every 8 Medic al ing tablet (eight) Branch hours as needed for Nausea and Vomiting (N/V). benzonatate 2019-0 Yes [id number] 100mg Take 1 Univers 100 mg 3-25 capsule by ity of capsule 00:00: mouth 3 [place] 00 (three) Medical times Branch daily as needed for Cough. ibuprofen 2018-2020- No [id number] 600mg Take 1 Univers 600 mg 3-25 04-08 tablet by ity of tablet 00:00: 00:00 mouth [place] 00 :00 every 6 Medical (six) Branch hours as needed for Pain (scale 4-6). ondansetron 2020- No [id number] 4mg Take 1 Univers (ZOFRAN 3-25 04-08 tablet by ity of ODT) 4 mg 00:00: 00:00 mouth [place] disintegrat 00 :00 every 8 Medic al ing tablet (eight) Branch hours as needed for Nausea and Vomiting (N/V). benzonatate 2020- No [id number] 100mg Take 1 Univers 100 mg 3-25 04-08 capsule by ity of capsule 00:00: 00:00 mouth 3 [place] 00 :00 (three) Medical times Branch daily as needed for Cough. ibuprofen 2020- No [id number] 600mg Take 1 Univers 600 mg 3-25 04-08 tablet by ity of tablet 00:00: 00:00 mouth [place] 00 :00 every 6 Medical (six) Branch hours as needed for Pain (scale 4-6). ondansetron 2020- No [id number] 4mg Take 1 Univers (ZOFRAN 3-25 04-08 tablet by ity of ODT) 4 mg 00:00: 00:00 mouth [place] disintegrat 00 :00 every 8 Medic al ing tablet (eight) Branch hours as needed for Nausea and Vomiting (N/V). benzonatate 2020- No [id number] 100mg Take 1 Univers 100 mg 3-25 04-08 capsule by ity of capsule 00:00: 00:00 mouth 3 [place] 00 :00 (three) Medical times Branch daily as needed for Cough. acetaminoph Yes 1{tbl} Take 1 Un thiago en-codeine 3-31 tablet by ity of 300-30 mg 00:00: mouth [place] tablet 00 every 4 Medical (four) Branch hours as needed for Pain (scale 4-6) or Pain (scale 7-10). acetaminoph Yes 1{tbl} Take 1 Un thiago en-codeine 3-31 tablet by ity of 300-30 mg 00:00: mouth [place] tablet 00 every 4 Medical (four) Branch hours as needed for Pain (scale 4-6) or Pain (scale 7-10). acetaminoph Yes 1{tbl} Take 1 Un thiago en-codeine 3-31 tablet by ity of 300-30 mg 00:00: mouth [place] tablet 00 every 4 Medical (four) Branch hours as needed for Pain (scale 4-6) or Pain (scale 7-10). acetaminoph Yes 1{tbl} Take 1 Un thiago en-codeine 3-31 tablet by ity of 300-30 mg 00:00: mouth [place] tablet 00 every 4 Medical (four) Branch hours as needed for Pain (scale 4-6) or Pain (scale 7-10). acetaminoph Yes 1{tbl} Take 1 Un thiago en-codeine 3-31 tablet by ity of 300-30 mg 00:00: mouth [place] tablet 00 every 4 Medical (four) Branch hours as needed for Pain (scale 4-6) or Pain (scale 7-10). acetaminoph Yes 1{tbl} Take 1 Un thiago en-codeine 3-31 tablet by ity of 300-30 mg 00:00: mouth [place] tablet 00 every 4 Medical (four) Branch hours as needed for Pain (scale 4-6) or Pain (scale 7-10). acetaminoph 2020- No 1{tbl} Take 1 U nivers en-codeine 3-31 04-08 tablet by ity of 300-30 mg 00:00: 00:00 mouth [place] tablet 00 :00 every 4 Medical (four) Branch hours as needed for Pain (scale 4-6) or Pain (scale 7-10). acetaminoph 2020- No 1{tbl} Take 1 U nivers en-codeine 3-31 04-08 tablet by ity of 300-30 mg 00:00: 00:00 mouth [place] tablet 00 :00 every 4 Medical (four) Branch hours as needed for Pain (scale 4-6) or Pain (scale 7-10). No known No [facility] [place] [facility] No known No [facility] [place] [facility] No known No Univers medications [facility] Immunizations Ordered Filled Immunization Date Status Comments [facility] e Immunization Name Name TDAP 2014-05-30 Completed University of 00:00:00 [place] [facility] TDAP 2014-05-30 Completed University of 00:00:00 [place] [facility] TDAP 2014-05-30 Completed University of 00:00:00 [place] [facility] TDAP 2014-05-30 Completed University of 00:00:00 [place] [facility] TDAP 2014-05-30 Completed University of 00:00:00 [place] [facility] TDAP 2014-05-30 Completed University of 00:00:00 [place] [facility] TDAP 2014-05-30 Completed University of 00:00:00 [place] [facility] TDAP 2014-05-30 Completed University of 00:00:00 [place] [facility] TDAP 2014-05-30 Completed University of 00:00:00 [place] [facility] TDAP 2014-05-30 Completed University of 00:00:00 [place] [facility] Tdap 2014-05-30 Completed University of 00:00:00 [place] [facility] Tdap 2014-05-30 Completed University of 00:00:00 [place] [facility] Tdap 2014-05-30 Completed University of 00:00:00 [place] [facility] TDAP 2014-05-30 Completed University of 00:00:00 [facility] Influenza Virus 2014-04-04 Completed Universit y of Vaccine Quad IM 00:00:00 [place] Med ical Multi-dose 6+ MO Branch Influenza Virus 2014-04-04 Completed Universit y of Vaccine Quad IM 00:00:00 [place] Med ical Multi-dose 6+ MO Branch Influenza Virus 2014-04-04 Completed Universit y of Vaccine [facility] IM 00:00:00 [place] Med ical Multi-dose 6+ MO Branch Influenza Virus 2014-04-04 Completed Universit y of Vaccine [facility] IM 00:00:00 [place] Med ical Multi-dose 6+ MO Branch Influenza Virus 2014-04-04 Completed Universit y of Vaccine [facility] IM 00:00:00 [place] Med ical Multi-dose 6+ MO Branch Influenza Virus 2014-04-04 Completed Universit y of Vaccine [facility] IM 00:00:00 [place] Med ical Multi-dose 6+ MO Branch Influenza Virus 2014-04-04 Completed Universit y of Vaccine [facility] IM 00:00:00 [place] Med ical Multi-dose 6+ MO Branch Influenza Virus 2014-04-04 Completed Universit y of Vaccine [facility] IM 00:00:00 [place] Med ical Multi-dose 6+ MO Branch Influenza Virus 2014-04-04 Completed Universit y of Vaccine Quad IM 00:00:00 [place] Med ical Multi-dose 6+ MO Branch Influenza Virus 2014-04-04 Completed Universit y of Vaccine Quad IM 00:00:00 [place] Med ical Multi-dose 6+ MO Branch Influenza Virus 2014-04-04 Completed Universit y of Vaccine Quad IM 00:00:00 [place] Med ical Multi-dose 6+ MO Branch Influenza Virus 2014-04-04 Completed Universit y of Vaccine Quad IM 00:00:00 [place] Med ical Multi-dose 6+ MO Branch Influenza Virus 2014-04-04 Completed Universit y of Vaccine Quad IM 00:00:00 [place] Med ical Multi-dose 6+ MO Branch Influenza Virus 2014-04-04 Completed Universit y of Vaccine [facility] IM 00:00:00 [place] Med ical Multi-dose 6+ MO Branch TDAP 2012-11-06 Completed University of 00:00:00 [facility] TDAP 2012-11-06 Completed University of 00:00:00 [facility] TDAP 2012-11-06 Completed University of 00:00:00 [facility] Branch TDAP 2012-11-06 Completed University of 00:00:00 [facility] Branch TDAP 2012-11-06 Completed University of 00:00:00 [facility] Branch TDAP 2012-11-06 Completed University of 00:00:00 [facility] Branch TDAP 2012-11-06 Completed University of 00:00:00 [facility] Branch TDAP 2012-11-06 Completed University of 00:00:00 [facility] TDAP 2012-11-06 Completed University of 00:00:00 [facility] Branch TDAP 2012-11-06 Completed University of 00:00:00 [facility] Branch Tdap 2012-11-06 Completed University of 00:00:00 [facility] Branch Tdap 2012-11-06 Completed University of 00:00:00 [facility] Branch Tdap 2012-11-06 Completed University of 00:00:00 [facility] TDAP 2012-11-06 Completed University of 00:00:00 [facility] Influenza Virus 2010-05-12 Completed Universit y of Vaccine 00:00:00 [facility] Influenza Virus 2010-05-12 Completed Universit y of Vaccine 00:00:00 [facility] Influenza Virus 2010-05-12 Completed Universit y of Vaccine 00:00:00 [facility] Influenza Virus 2010-05-12 Completed Universit y of Vaccine 00:00:00 [facility] Influenza Virus 2010-05-12 Completed Universit y of Vaccine 00:00:00 [facility] Influenza Virus 2010-05-12 Completed Universit y of Vaccine 00:00:00 [facility] Influenza Virus 2010-05-12 Completed Universit y of Vaccine 00:00:00 [facility] Influenza Virus 2010-05-12 Completed Universit y of Vaccine 00:00:00 [facility] Influenza Virus 2010-05-12 Completed Universit y of Vaccine 00:00:00 [facility] Influenza Virus 2010-05-12 Completed Universit y of Vaccine 00:00:00 [facility] Influenza Virus 2010-05-12 Completed Universit y of Vaccine 00:00:00 [facility] Influenza Virus 2010-05-12 Completed Universit y of Vaccine 00:00:00 [facility] Influenza Virus 2010-05-12 Completed Universit y of Vaccine 00:00:00 [facility] Influenza Virus 2010-05-12 Completed Universit y of Vaccine 00:00:00 [facility] Rubella 2010-01-29 Completed University of 00:00:00 [facility] Rubella 2010-01-29 Completed University of 00:00:00 [facility] Rubella 2010-01-29 Completed University of 00:00:00 [facility] Rubella 2010-01-29 Completed University of 00:00:00 [facility] Rubella 2010-01-29 Completed University of 00:00:00 [facility] Rubella 2010-01-29 Completed University of 00:00:00 [facility] Rubella 2010-01-29 Completed University of 00:00:00 [facility] Rubella 2010-01-29 Completed University of 00:00:00 [facility] Rubella 2010-01-29 Completed University of 00:00:00 [facility] Rubella 2010-01-29 Completed University of 00:00:00 [facility] Rubella 2010-01-29 Completed University of 00:00:00 [facility] Rubella 2010-01-29 Completed University of 00:00:00 [facility] Rubella 2010-01-29 Completed University of 00:00:00 [facility] Rubella 2010-01-29 Completed University of 00:00:00 [facility] Vital Signs Vital Name Observation Time Observation Value Comments Source Systolic blood 2020-09-11 14:10:00 113 mm[Hg] Univer sity of pressure [place] [facility] Diastolic blood 2020-09-11 14:10:00 75 mm[Hg] Unive rsity of pressure [place] [facility] Heart rate 2020-09-11 14:10:00 67 /min Universi ty of [place] [facility] Body temperature 2020-09-11 14:10:00 36.72 [place] Univ ersity of [place] [facility] Respiratory rate 2020-09-11 14:10:00 16 /min Univ ersity of [place] [facility] Body height 2020-09-11 14:10:00 154.9 cm Universi ty of [place] [facility] Body weight 2020-09-11 14:10:00 61.689 kg Universi ty of [place] [facility] BMI 2020-09-11 14:10:00 25.70 kg/m2 Universi ty of [place] [facility] Systolic blood 2020-08-28 12:52:00 118 mm[Hg] Univer sity of pressure [place] [facility] Diastolic blood 2020-08-28 12:52:00 79 mm[Hg] Unive rsity of pressure [place] [facility] Heart rate 2020-08-28 12:52:00 71 /min Universi ty of [place] [facility] Body temperature 2020-08-28 12:52:00 36.56 [place] Univ ersity of [place] [facility] Respiratory rate 2020-08-28 12:52:00 16 /min Univ ersity of [place] [facility] Body height 2020-08-28 12:52:00 157.5 cm Universi ty of [place] [facility] Body weight 2020-08-28 12:52:00 61.718 kg Universi ty of [place] [facility] BMI 2020-08-28 12:52:00 24.89 kg/m2 Universi ty of [place] [facility] Systolic blood 2020-04-28 13:55:00 114 mm[Hg] Univer sity of pressure [place] [facility] Diastolic blood 2020-04-28 13:55:00 78 mm[Hg] Unive rsity of pressure [place] [facility] Heart rate 2020-04-28 13:55:00 87 /min Universi ty of [place] [facility] Body temperature 2020-04-28 13:55:00 37.44 [place] Univ ersity of [place] [facility] Respiratory rate 2020-04-28 13:55:00 17 /min Univ ersity of [place] [facility] Body weight 2020-04-28 13:55:00 63.504 kg Universi ty [facility] BMI 2020-04-28 13:55:00 25.61 kg/m2 Universi [facility] Oxygen saturation in 2020-04-28 13:55:00 100 /min [facility] Arterial blood by [facility] Pulse oximetry Branch Systolic blood 2019-01-16 18:58:00 116 mm[facility]Hg[facility] [facility] Diastolic blood 2019-01-16 18:58:00 78 mm[Hg] [facility] 2019-01-16 18:58:00 74 /min [facility] Body temperature 2019-01-16 18:58:00 36.28 [facility] Respiratory rate 2019-01-16 18:58:00 16 /min [facility] Body height 2019-01-16 18:58:00 157.5 cm [facility] Body weight 2019-01-16 18:58:00 62.596 [facility] BMI 2019-01-16 18:58:00 25.24 kg/m2 [facility] Procedures Procedure Date / Time Performed Performing Clinician John traylor POCT TEST 2020-09-11 14:10:00 Ghazal [facility] CONSENT/REFUSAL FOR 2020-08-28 12:30:51 Doctor [facility]igned, [facility] TREATMENT ASSIGNMENT OF BENEFITS 2020-08-28 12:30:34 Doctor Unassigned, No [facility] NOTICE OF PRIVACY 2020-04-28 13:46:31 Doctor Unassigned, No [facility] PRACTICES [facility] CONSENT/REFUSAL FOR 2020-04-28 13:46:21 Doctor Unassigned, [facility] TREATMENT POCT TEST 2019-01-16 19:00:00 Lizy Kirk [facility] ASSIGNMENT OF BENEFITS 2019-01-16 18:37:40 Doctor Unassigned, No [facility] Plan of Care Planned Activity Planned Date Details Comments Source Future Scheduled 2024-05-30 DTaP,Tdap,and Td [facility] [place] Test 00:00:00 Vaccines (3 - Td) Medical Br anch [code = DTaP,Tdap,and Td Vaccines (3 - Td)] Future Scheduled 2023-08-29 Screening for [facility] Test 00:00:00 malignant neoplasm of Medica l Branch cervix (procedure) [code = 012626942] Future Scheduled 2021-08-28 Depression screening Uni [facility]ity [facility] Test 00:00:00 (procedure) [code = Medical Branch [id number]] Future Scheduled 2021-01-21 INFLUENZA VACCINE [facility]iver [facility]ity [facility] Test 00:00:00 (Season Ended) [code Medical Branch = INFLUENZA VACCINE (Season Ended)] Future Scheduled 2007-12-12 Hepatitis C screening [facility] [place] Test 00:00:00 (procedure) [code = Medical Branch [id number]] Future Scheduled 2005 SARS-CoV-2 (COVID-19) [facility] [place] Test 00:00:00 Vaccine (1) [code = Medical Branch SARS-CoV-2 (COVID-19) Vaccine (1)] Future Scheduled TRICHOMONAS AMPLIFIED [facility] [place] [facility] ASSAY [code = Medical Branch 20629-1] Encounters Start End Encounter Admission Attending Care Care Encounter Source Date/Time Date/Time Type Type Clinicians Facility Department ID 2021-03-21 Emergency [facility] [id number] Univers 09:31:41 ity [facility] 2020-12-08 2020-12-08 Outpatient R [facility] [id number] Univers 13:15:00 13:15:00 [id number] ity [facility] 2020-12-08 2020-12-08 Outpatient R [facility] [id number] Univers 13:15:00 13:15:00 ity of [facility] 2020-11-19 2020-11-19 Outpatient R [facility] [id number] Univers 10:30:00 10:30:00 [id number] ity [facility] 2020-11-19 2020-11-19 Outpatient R [facility] [id number] Univers 10:30:00 10:30:00 ity [facility] 2020-10-24 2020-10-24 Outpatient R [facility] [id number] Univers 08:30:00 08:30:00 [id number] ity [facility] 2020-10-24 2020-10-24 Outpatient R REAGAN [facility] [id number] Univers 08:30:00 08:30:00 LIZY ity o f [facility] 2020-09-30 2020-09-30 [id number] Univers 07:45:00 07:45:00 GHAZAL [id number] ity [facility] 2020-09-30 2020-09-30 [facility] [id number] Univers 07:45:00 07:45:00 GHAZAL [facility] 2020-09-25 2020-09-25 [employer] Professor Lab, [facility] [id number] Univers 07:46:58 08:17:24 Visit Lizy iKrk MANAGER OF FINANCIAL REPORTING 350.1.13. 10 ity of [facility] [id number] Abner as MATERNAL [phone] Med ical & CHILD 107 [facility] 2020-09-25 2020-09-25 [employer] Professor Lab, [facility] [id number] 07:46:58 08:17:24 Visit [facility] MANAGER OF FINANCIAL REPORTING [id number] REGIONAL [id number] MATERNAL [id number] & CHILD 107 [facility] 2020-09-25 2020-09-25 Outpatient R [facility] [id number] Univers 08:00:00 08:00:00 [id number] ity [facility] 2020-09-25 2020-09-25 Outpatient R [facility] [id number] Univers 08:00:00 08:00:00 ity [facility] 2020-09-11 2020-09-11 [facility] [id number] Univers 08:47:04 09:23:19 Visit Ghazal Medina MANAGER OF FINANCIAL REPORTING [id number] it y of REGIONAL [id number] Abner as MATERNAL [phone] Med ical & CHILD 107 [facility] 2020-09-11 2020-09-11 Outpatient R ROGERS [facility] [id number] Univers 09:00:00 09:00:00 GHAZAL [id number] ity [facility] 2020-09-11 2020-09-11 Outpatient R ROGERS [facility] [id number] Univers 09:00:00 09:00:00 GHAZAL itwilver [facility] 2020-09-01 2020-09-01 [facility] [id number] Univers 00:00:00 00:00:00 Ghazal Adam MANAGER OF FINANCIAL REPORTING [id number] it y of [facility] [id number] Abner as MATERNAL [phone] [address] 2020-08-28 2020-08-28 Office [facility] [id number] Univers 07:46:10 08:45:35 Visit Ghazal Medina MANAGER OF FINANCIAL REPORTING 350.1.13.10 it y of [facility] [id number] Abner as MATERNAL [id number] [address] 2020-08-28 2020-08-28 Outpatient R ROGERS [facility] [id number] Univers 07:45:00 07:45:00 [id number] [facility] 2020-08-28 2020-08-28 Outpatient R ROGERS [facility] [id number] Univers 07:45:00 07:45:00 GHAZAL itwilver [facility] 2020-08-28 2020-08-28 Orders Doctor NICOLE [id number] Univers 00:00:00 00:00:00 Only Unassigned, CHILANGO 350.1.13.10 ity of [place] [facility] [id number] Abner as [phone] [address] 2020-04-28 2020-04-28 Emergency [facility] [id number] Univers 07:56:00 08:10:00 Bandar Diamond 350.1.13.10 i ty of [place] 4.2.7.2.686 [place] [facility] [phone] [facility] [address] [place] 2020-04-28 2020-04-28 Orders Doctor COREY [id number] Univers 00:00:00 00:00:00 Only Unassigned, CHILANGO 350.1.13.10 ity of [place] [facility] [id number] Abner as [phone] [address] 2019-01-16 2019-01-16 Office Akinjamie, [facility] [id number] Univers 13:40:36 14:50:57 Visit Lizy Rowe MANAGER OF FINANCIAL REPORTING 350.1.13.10 ity of [facility] [id number] Abner as MATERNAL [phone] Med ical & CHILD [address] [place] [address] 2019-01-16 2019-01-16 Orders Doctor COREY [id number] Univers 00:00:00 00:00:00 Only Unassigned, CHILANGO 350.1.13.10 ity of [place] [facility] [id number] Abner as [phone] [address] Results Test Description Test Time Test Comments Results Result Comments Source POCT TEST 2020-09-11 14:11:00 Test Item Value Reference Range Interpretation Comme nts POCT PREG (test code = 1605) Negative On board controls acceptable with C Line (test code = 3574) Yes POCT PREG LOT # (test code = 3575) POCT PREG TEST DATE (test code = 3576) [id number] 14:11:00 Test Item Value Reference Range Interpretation Comments POCT PREG (test code = 1605) Negative On board controls acceptable with C Yes Line (test code = 3574) POCT PREG LOT # (test code = 3575) POCT PREG TEST DATE (test code = 3576) [facility] [id number] 19:00:00 Test Item Value Reference Range Interpretation Comments POCT PREG (test code = 1605) Negative On board controls acceptable with C Yes Line (test code = 3574) POCT PREG LOT # (test code = 3575) POCT PREG TEST DATE (test code = 3576) [facility] [id number] 19:00:00 Test Item Value Reference Range Interpretation Comments POCT PREG (test code = 1605) Negative On board controls acceptable with C Yes Line (test code = 3574) POCT PREG LOT # (test code = 3575) POCT PREG TEST DATE (test code = 3576) [facility]
[2021-08-05 09:59] LABS: Absolute Lymphocytes (CBC) 1.3 K/uL (0.7-4.9); Hematocrit 28.2 % (36.0-45.0); Lymphocytes % 26.8 % (15.3-44.8); MPV 8.3 fL (7.6-11.3)
[2021-08-05] MEDS ORDERED: KETOROLAC 30 MG/ML INJ ONE (10:05)
--- NOTE | 2021-08-05 10:19 | RAD REPORT ---
EXAM DESCRIPTION: RAD - Chest Single View - 08/05/2021 10:07 am CLINICAL HISTORY: PAIN Chest pain. COMPARISON: Chest Single View dated 11/29/2020; Chest Single View dated 03/31/2020; Chest Single View dated 08/17/2018; Chest Single View dated 07/27/2018 FINDINGS: Portable technique limits examination quality. The lungs are grossly clear. The heart is normal in size. No displaced fractures. IMPRESSION: No acute intrathoracic process suspected.
[2021-08-05 10:20] LABS: BUN Blood Urea Nitrogen 12 mg/dL (7-18); Bicarbonate 25 mmol/L (21-32); Glucose Level 156 mg/dL (74-106); Potassium 3.6 mmol/L (3.5-5.1); Sodium Level 139 mmol/L (136-145)
[2021-08-05 10:25] LABS: Troponin High Sensitivity < 3.00 pg/mL (<58.9)
--- NOTE | 2021-08-05 10:54 | ER ---
Nurse's Notes [facility] Name: Ember Clark Age: 30 yrs Sex: Female : 1990 Arrival Date: 08/05/2021 Time: 09:14 Bed 15 Private MD: Diagnosis: Chest pain on breathing;Anemia, unspecified Presentation: 08/05 09:22 Chief complaint: Patient states: "Chest pain mid chest, intermittent started ag7 yesterday". Coronavirus screen: Client denies travel out of the [place] in the last 14 days. At this time, the client does not indicate any symptoms associated with coronavirus-19. Ebola Screen: Patient denies travel to an Ebola-affected area in the 21 days before illness onset. Initial Sepsis Screen: Does the patient meet any 2 criteria? No. Patient's initial sepsis screen is negative. Does the patient have a suspected source of infection? No. Patient's initial sepsis screen is negative. Risk Assessment: Do you want to hurt yourself or someone else? Patient reports no desire to harm self or others. Onset of symptoms was August 04, 2021. 09:22 Method Of Arrival: Ambulatory ag7 09:22 Acuity: MIKKI 3 ag7 Historical: - Allergies: 09:25 No Known Allergies; ag7 - Home Meds: 09:25 None [Active]; ag7 - PMHx: 09:25 Anemia; carpal tunnel; ag7 - PSHx: 09:25 section; Cholecystectomy; ag7 - Immunization history:: Adult Immunizations up to date, Client reports receiving the 2nd dose of the Covid vaccine, Flu vaccine is up to date. - Social history:: Smoking status: Patient reports the use of cigarette tobacco products, denies chronic smoking, but will smoke occasionally. Screenin:23 Abuse screen: Denies threats or abuse. Denies injuries from another. Nutritional ph screening: No deficits noted. Tuberculosis screening: No symptoms or risk factors identified. Fall Risk None identified. Assessment: 09:54 General: Appears in no apparent distress. Behavior is calm, cooperative, appropriate ph for age, Denies fever, feeling ill. Pain: Complains of pain in mid-sternal area Pain does not radiate. Quality of pain is described as sharp, Pain began 1 day ago. Neuro: Level of Consciousness is awake, alert, obeys commands, Oriented to person, place, time, situation. Cardiovascular: Reports chest pain, shortness of breath, Denies nausea, vomiting, Capillary refill < 3 seconds in bilateral fingers Patient's skin is warm and dry. Chest pain quality is sharp, is located in substernal area. Respiratory: Reports shortness of breath Airway is patent Respiratory effort is even, unlabored. GI: No signs and/or symptoms were reported involving the gastrointestinal system. Derm: Skin is intact, is healthy with good turgor, Skin is pink, warm \\T\\ dry. Musculoskeletal: Circulation, motion, and sensation intact. Range of motion: intact in all extremities. 10:52 Reassessment: Patient appears in no apparent distress at this time. Patient and/or ph family updated on plan of care and expected duration. Pain level reassessed. Patient is alert, oriented x 3, equal unlabored respirations, skin warm/dry/pink. Vital Signs: 09:22 BP 128 / 89 LA Sitting (man/reg); Pulse 89 LA; Resp 20 S; Temp 97.7(O); Pulse Ox 100% ag7 on R/A; Weight 63.5 kg (R); Height 5 ft. 1 in. (154.94 cm) (R); Pain 8/10; 10:52 BP 115 / 73; Pulse 70; Resp 18; Temp 97.5; Pulse Ox 99% on R/A; ph 09:22 Body Mass Index 26.45 (63.50 kg, 154.94 cm) ag7 ED Course: 09:14 Patient arrived in ED. ds1 09:16 Bassem Cheek DO is Attending Physician. ms3 09:23 Patricia Fierro, RN is Primary Nurse. ph 09:25 Triage completed. ag7 09:25 Arm band placed on. ph 09:25 Patient maintains SpO2 saturation greater than 95% on room air. ph 09:26 Arm band placed on right wrist. ag7 09:26 Patient has correct armband on for positive identification. Placed in gown. Bed in low ph position. Call light in reach. quality assurance monitor body on. Pulse ox on. NIBP on. Door closed. Warm blanket given. Pillow given. 09:33 EKG done, by ED staff, reviewed by Bassem Cheek DO. 5 09:49 Troponin HS Sent. 5 09:49 CBC with Diff Sent. 5 09:49 Basic Metabolic Panel Sent. 5 09:49 Initial lab(s) drawn, by pr, sent to lab. Inserted saline lock: 20 gauge in right 5 antecubital area, using aseptic technique. Blood collected. 10:07 XRAY Chest (1 view) In Process Unspecified. EDDC 10:08 Basic Metabolic Panel Sent. [facility] 10:09 CBC with Diff Sent. [facility] 10:09 Troponin HS Sent. [facility] 10:53 Bakari Serrano MD is Referral Physician. ms3 Administered Medications: 10:07 Drug: Ketorolac 15 mg Route: IVP; Site: right antecubital; ph Outcome: 10:53 Discharge ordered by . ms3 11:29 Patient left the ED. ph Signatures: Dispatcher [employer] EDDC Nayely Madrigal ds1 Patricia Fierro, NARA RN ph Nora Resendiz [facility] Bassem Cheek DO DO ms3 Cindy Arriaga RN RN ag7
--- NOTE | 2021-08-05 10:54 | EDPHYS ---
Physician Documentation [facility] Name: Ember Clark Age: 30 yrs Sex: Female : 1990 Arrival Date: 08/05/2021 Time: 09:14 Bed 15 Private MD: ED Physician Bassem Cheek HPI: 08/05 09:30 This 30 yrs old Black Female presents to ER via Ambulatory with complaints of Chest ms3 Pain. 09:30 The patient or guardian reports chest pain that is located primarily in the substernal ms3 area. The pain does not radiate. Associated signs and symptoms: Pertinent positives: shortness of breath, Pertinent negatives: nausea, vomiting. The chest pain is described as sharp. Modifying factors: The symptoms are alleviated by nothing. the symptoms are aggravated by movement. Severity of pain: in the emergency department the pain is unchanged. 30-year-old female with no past medical history presents for chest pain that is located substernally and rated a 8/10 and described as stabbing. Patient states movement makes the pain worse. Patient denies alleviating factors. Patient denies nausea, vomiting, diaphoresis. Patient endorses shortness of breath.. Historical: - Allergies: 09:25 No Known Allergies; ag7 - Home Meds: 09:25 None [Active]; ag7 - PMHx: 09:25 Anemia; carpal tunnel; ag7 - PSHx: 09:25 section; Cholecystectomy; ag7 - Immunization history:: Adult Immunizations up to date, Client reports receiving the 2nd dose of the Covid vaccine, Flu vaccine is up to date. - Social history:: Smoking status: Patient reports the use of cigarette tobacco products, denies chronic smoking, but will smoke occasionally. ROS: 09:30 Constitutional: Negative for fever, and chills. Eyes: Negative for injury, pain, ms3 redness, and discharge, Neck: Negative for injury, pain, and swelling, Respiratory: Negative for shortness of breath, cough, wheezing, and pleuritic chest pain, Abdomen/GI: Negative for abdominal pain, nausea, vomiting, diarrhea, and constipation, Back: Negative for injury and pain, MS/Extremity: Negative for injury and deformity, Skin: Negative for injury, rash, and discoloration, Neuro: Negative for headache, weakness, numbness, tingling. 09:30 Cardiovascular: Positive for chest pain, with movement. Exam: 09:30 Constitutional: This is a well developed, well nourished patient who is awake, alert, ms3 and in no acute distress. Head/Face: Normocephalic, atraumatic. Eyes: Pupils equal round and reactive to light, extra-ocular motions intact. Lids and lashes normal. Conjunctiva and sclera are non-icteric and not injected. Periorbital areas with no swelling, redness, or edema. Neck: Trachea midline, no cervical lymphadenopathy. Supple, full range of motion without nuchal rigidity, or vertebral point tenderness. No Meningismus. Cardiovascular: Regular rate and rhythm with a normal S1 and S2. No gallops, murmurs, or rubs. Normal PMI, no JVD. No pulse deficits. Respiratory: Lungs have equal breath sounds bilaterally, clear to auscultation and percussion. No rales, rhonchi or wheezes noted. No increased work of breathing, no retractions or nasal flaring. Abdomen/GI: Soft, non-tender, with normal bowel sounds. No distension or tympany. No guarding or rebound. No evidence of tenderness throughout. Neuro: Awake and alert, GCS 15, oriented to person, place, time, and situation. Cranial nerves II-XII grossly intact. Motor strength 5/5 in all extremities. Sensory grossly intact. Cerebellar exam normal. Normal gait. Psych: Awake, alert, with orientation to person, place and time. Behavior, mood, and affect are within normal limits. 09:30 ECG was reviewed by the Attending Physician. ms3 Vital Signs: 09:22 BP 128 / 89 LA Sitting (man/reg); Pulse 89 LA; Resp 20 S; Temp 97.7(O); Pulse Ox 100% ag7 on R/A; Weight 63.5 kg (R); Height 5 ft. 1 in. (154.94 cm) (R); Pain 8/10; 10:52 BP 115 / 73; Pulse 70; Resp 18; Temp 97.5; Pulse Ox 99% on R/A; ph 09:22 Body Mass Index 26.45 (63.50 kg, 154.94 cm) ag7 MDM: 09:29 Patient medically screened. ms3 09:30 ED course: PERC score = 0. ms3 09:30 Data interpreted: monitoring analyst: rate is 82 beats/min, rhythm is normal sinus rhythm. ms3 11:01 Differential diagnosis: abnormal EKG, chest wall pain, costochondritis. HEART Score: ms3 History: Slightly Suspicious (0), ECG: Normal (0), Age: < or = 45 years (0), Risk Factors: No Risk Factors Known (0), Troponin: < or = 1 x Normal Limit (0), Total Score = 0. Data reviewed: vital signs, nurses notes, lab test result(s), EKG, radiologic studies. Data interpreted: Pulse oximetry: on room air is 99 %. ED course: Discussed chest x-ray, labs, physical exam findings with patient. Patient to follow-up with primary care physician as discussed. Patient understands agrees with plan. All questions were answered. Return precautions discussed include worsening symptoms, or any other concerns. On reevaluation patient is alert and oriented x4, no apparent distress, nontoxic, speaking full sentences, ambulatory in emergency department.. 08/05 09:33 Order name: Basic Metabolic Panel; Complete Time: 10:36 ms3 08/05 09:33 Order name: CBC with Diff ms3 08/05 09:33 Order name: Troponin HS; Complete Time: 10:36 ms3 08/05 09:33 Order name: XRAY Chest (1 view); Complete Time: 10:20 ms3 08/05 09:33 Order name: EKG; Complete Time: 09:34 ms3 08/05 09:33 Order name: Cardiac monitoring; Complete Time: 09:34 ms3 08/05 09:33 Order name: EKG - Nurse/Tech; Complete Time: 09:34 ms3 08/05 09:33 Order name: IV Saline Lock; Complete Time: 09:47 ms3 08/05 09:33 Order name: Labs collected and sent; Complete Time: 09:47 ms3 08/05 09:33 Order name: O2 Per Protocol; Complete Time: 09:34 ms3 08/05 09:33 Order name: O2 Sat Monitoring; Complete Time: 09:34 ms3 EC:30 Rate is 79 beats/min. Rhythm is regular. QRS Rosalie is Normal. Clinical impression: ms3 Normal ECG. Interpreted by me. Administered Medications: 10:07 Drug: Ketorolac 15 mg Route: IVP; Site: right antecubital; ph Disposition Summary: 08/05/21 10:53 Discharge Ordered Location: Home ms3 Condition: Stable ms3 Diagnosis - Chest pain on breathing ms3 - Anemia, unspecified ms3 Followup: ms3 - With: Bakari Serrano MD - When: 2 - 3 days - Reason: Discharge Instructions: - Discharge Summary Sheet ms3 - Anemia ms3 - Chest Wall Pain, [id number] ms3 Forms: - Medication Reconciliation Form ms3 - Work release form ph - Thank You Letter ms3 - Antibiotic Education ms3 - Prescription Opioid Use ms3 Prescriptions: - Ibuprofen 600 mg Oral Tablet - take 1 tablet by ORAL route every 6 hours As needed take with food; 30 tablet; ms3 Refills: 0, Product Selection Permitted Signatures: Dispatcher [employer] Patricia Ponce, RN RN Bassem Baltazar DO DO ms3 Cindy Arriaga, RN RN ag7
[2021-08-05 11:42] VITALS: BP 115/73; TEMP 97.5; O2SAT 99
[2021-08-05 12:53] LABS: Blood Morphology Comment NOTED (NOT SEEN); Hypochromasia 2+; Platelet Estimate ADEQ; White Blood Cell Scan OK (OK)
--- NOTE | 2021-08-10 08:38 | EKG ---
Test Date: 2021-08-05 Test Time: 09:26:51 Continuous [place]: [place] MEASUREMENT RESULTS: Intervals: Rate: 79 MO: 144 QRSD: 78 QT: 370 QTc: 424 [place]: P: 81 MO: 144 QRS: 74 T: 59 INTERPRETIVE STATEMENTS: Normal sinus rhythm Possible Left atrial enlargement Borderline ECG Compared to ECG 11/29/2020 08:46:06 Sinus arrhythmia no longer present Electronically Signed On 08-10-21 08:25:02 CDT by Luis Manuel Spain
== END 2021-08-05 11:29 | disposition home or self-care (01) ==
LOC: ER 09:13
DX: R07.1 Chest pain on breathing (principal); R06.02 Shortness of breath; D64.9 Anemia, unspecified; F17.210 Nicotine dependence, cigarettes, uncomplicated
CPT/HCPCS: 36415; 71045; 80048; 84484; 85025; 93005; 96374; 99285

== ENCOUNTER 2021-09-04 16:56 | Emergency (ER) | payer OTHER ==
--- OUTSIDE RECORDS SUMMARY | 2021-09-04 17:00 | XMS REPORT | Continuity of Care Document ---
:[address] [facility] t Address [address] [place] [address] Care Team Providers Name Role Phone Jae Hdz Primary Care Physician Jae KIRK Attending Clinician Unavailable Adam MCCLOUD Attending Clinician Unavailable Lab Attending Clinician Unavailable Jae Hdz Attending Clinician Adam Barry Attending Clinician Doctor Unassigned, Name Attending Clinician Unavailable Singer MATTHEWS Attending Clinician Payers Payer Name Policy Type Policy Number Effective Date Expiration Date Ubaldo app[facility] [id number] 2020 00:00:00 Advance Directives Directive Decision Effective Termination Comments Source Date Date Healthcare Agents on N/A [facility] FileNameRelationshipHealthcare [facility] Agent Medical RelationshipCommunicationSy Branch GriceMotherHealth Care [phone] (Mobile) Problems Condition Condition Condition Status Onset Resolution Last Treating Co mments Source Name Details Category Date Date Treatment Clinician Date Contracept Contracept Disease Active 2019-0 U nivers marga marga 01-16 ity of management management [id number] Well woman Well woman Disease Active 2019-0 U nivers exam exam 01-16 ity of 00:00: [address] Contracept Contracept Disease Active 2019-0 U nivers marga marga 01-16 [place] management [place] [facility] Irregular Irregular Disease Active 2019-0 Uni [...] bilateral 07-18 ity of tubal tubal 00:00: [place] ligation ligation 00 Medica l Branch Screening [...] Univers disorder disorder 7-18 ity of 00:00: [place] 00 Medical Branch Disease Resolve 2017-07-18 2017-07-18 Univers delivery delivery d 2- 00:00:00 21:29:46 it y of [place] [facility] Anxiety in Anxiety in Disease Resolve [...] d 3- 00:00:00 17:37:04 ity of 00:00: [place] 00 Medical Branch History of History of [...] first first 00:00: [place] trimester trimester 00 [facility] [V23.9] [V23.9] Branch Pelvic Pelvic Disease Resolve [...] 00:00:00 23:00:20 ity of during during 00:00: [place] , , 00 Me dical delivered delivered Bran ch Disease Resolve 2006-052008-10-10 2015-02-21 Univers delivery delivery d 0-08 00:00:00 22:35:50 [place] Other Other Disease Resolve 2006-052008-10-10 2008-10-11 Univers specified specified d 0-04 00:00:00 00:47:23 [place] of and and [place] placental placental 00 [place] problems problems Branch affecting affecting management management [...] ity of weeks of weeks of 00:00: [place] gestation( gestation( 00 Me dical 765.27) 765.27) Branch Allergies, Adverse Reactions, Alerts Allergy Allergy Status Severity Reaction(s) Onset Inactive Treating Comm ents Source Name Type Date Date Clinician NO KNOWN Drug Active Univers ALLERGIE Class ity of S [facility] Social History Social Habit Start Date Stop Date Quantity Comments Source History of 2013-12-07 Smoker University of tobacco use 00:00:00 [facility] Exposure to Not sure [facility] SARS-CoV-2 [facility] (event) [place] Tobacco use and 2020-09-11 2020-09-11 Never used Universit y of exposure 00:00:00 00:00:00 [facility] Alcohol intake 2020-09-11 2020-09-11 Current drinker Unive rsity of 00:00:00 00:00:00 of alcohol [facility] (finding) [place] Alcohol Comment 2017-07-18 2017-07-18 social Universit y of 00:00:00 00:00:00 [facility] Sex Ass[birth year] At [birth year] Universit y of 00:00:00 00:00:00 [facility] Smoking Status Start Date Stop Date Source Former smoker 2020-09-11 00:00:00 2020-09-11 00:00:00 Universi ty of [facility] Medications Ordered Filled Start Stop Current Ordering Indication Dosage Frequency Signature Comments Components Source Medication Medication Date Date Medication? Clinician (SIG) Name Name metroNIDAZO 2020- No [id number] 2000mg Take 4 Univers LE (FLAGYL) 09-01- tablets by i ty of 500 mg 00:00: 04:59 [place] tablet 00 :00 now for 1 Medical dose. Branch cephALEXin 2020- No [id number] 500mg Take 1 Univers (KEFLEX) 08-28 capsule by ity of 500 mg 00:00: 04:59 mouth 2 [place] capsule 00 :00 (two) Medical times Branch daily for 10 days. cephALEXin 2020- No [id number] 500mg Take 1 Univers (KEFLEX) 08-28 capsule by ity of 500 mg 00:00: 04:59 mouth 2 [place] capsule 00 :00 (two) Medical times Branch daily for 10 days. cephALEXin 2020- No [id number] 500mg Take 1 Univers (KEFLEX) 08-28 capsule by ity of 500 mg 00:00: 04:59 mouth 2 [place] capsule 00 :00 (two) Medical times Branch daily for 10 days. naproxen 2019-05 Yes [id number] 550mg Take 1 Un thiago sodium 2-07 tablet by ity of (ANAPROX 00:00: mouth 2 [place] DS) 550 mg 00 (two) Medical tablet times Branch daily with meals. methylPREDN 2019-05 Yes [id number] Take by Univers ISolone - mouth ity of (MEDROL, 00:00: SEE-INSTRU Abner as BLU,) 4 mg 00 CTIONS. Medica l tablets follow Branch package directions naproxen 2019-05 Yes [id number] 550mg Take 1 Un thiago sodium 2-07 tablet by ity of (ANAPROX 00:00: mouth 2 [place] DS) 550 mg 00 (two) Medical tablet times Branch daily with meals. methylPREDN 2019-05 Yes [id number] Take by Univers ISolone 07 mouth ity of (MEDROL, 00:00: SEE-INSTRU [place] as BLU,) 4 mg 00 CTIONS. Medica l tablets follow Branch package directions naproxen 2019-05- No [id number] 550mg Take 1 U nivers sodium 2-11 23-08 tablet by ity of (ANAPROX 00:00: 00:00 mouth 2 [place] DS) 550 mg 00 :00 (two) Medical tablet times Branch daily with meals. methylPREDN 2019-05- No [id number] Take by Univers ISolone 06-29-08 mouth ity of (MEDROL, 00:00: 00:00 [place] BLU,) 4 mg 00 :00 CTIONS. Medica l tablets follow Branch package directions naproxen 2019-05 No [id number] 550mg Take 1 U nivers sodium 2-07 04-08 tablet by ity of (ANAPROX 00:00: 00:00 mouth 2 [place] DS) 550 mg 00 :00 (two) Medical tablet times Branch daily with meals. methylPREDN 2019-05- No [id number] Take by Univers ISolone 2-07 04-08 mouth ity of (MEDROL, 00:00: 00:00 [place] BLU,) 4 mg 00 :00 CTIONS. Medica l tablets follow Branch package directions levonorgest Yes [id number] 1{tbl} Take 1 Univers rel-ethinyl 8-27 tablet by ity of estradiol 00:00: mouth [place] (SRONYX) 00 daily. Medical 0.1-20 Branch mg-mcg per tablet levonorgest Yes [id number] 1{tbl} Take 1 Univers rel-ethinyl 8-27 tablet by ity of estradiol 00:00: mouth [place] (SRONYX) 00 daily. Medical 0.1-20 Branch mg-mcg per tablet levonorgest Yes [id number] 1{tbl} Take 1 Univers rel-ethinyl 8-27 tablet by ity of estradiol 00:00: mouth [place] (SRONYX) 00 daily. Medical 0.1-20 Branch mg-mcg per tablet levonorgest Yes [id number] 1{tbl} Take 1 Univers rel-ethinyl 8-27 tablet by ity of estradiol 00:00: mouth [place] (SRONYX) 00 daily. Medical 0.1-20 Branch mg-mcg per tablet levonorgest Yes [id number] 1{tbl} Take 1 Univers rel-ethinyl 8-27 tablet by ity of estradiol 00:00: mouth [place] (SRONYX) 00 daily. Medical 0.1-20 Branch mg-mcg per tablet levonorgest 2020- No [id number] 1{tbl} Take 1 Univers rel-ethinyl 8-27 04-08 tablet by it y of estradiol 00:00: 00:00 mouth [place] (SRONYX) 00 :00 daily. Medical 0.1-20 Branch mg-mcg per tablet levonorgest 2020- No [id number] 1{tbl} Take 1 Univers rel-ethinyl 8-27 04-08 tablet by it y of estradiol 00:00: 00:00 mouth [place] (SRONYX) 00 :00 daily. Medical 0.1-20 Branch mg-mcg per tablet ibuprofen 2019-0 Yes [id number] 600mg Take 1 U nivers 600 mg 3-25 tablet by ity of tablet 00:00: mouth [place] 00 every 6 Medical (six) Branch hours as needed for Pain (scale 4-6). ondansetron 2019-0 Yes [id number] 4mg Take 1 Univers (ZOFRAN 3-25 tablet by ity of ODT) 4 mg 00:00: mouth [place] disintegrat 00 every 8 Medic al ing tablet (eight) Branch hours as needed for Nausea and Vomiting (N/V). benzonatate 2019-0 Yes [id number] 100mg Take 1 Univers 100 mg 3-25 capsule by ity of capsule 00:00: mouth 3 [place] 00 (three) Medical times Branch daily as needed for Cough. ibuprofen 2018-0 Yes [id number] 600mg Take 1 U nivers 600 mg 3-25 tablet by ity of tablet 00:00: mouth [place] 00 every 6 Medical (six) Branch hours as needed for Pain (scale 4-6). ondansetron 2019-0 Yes [id number] 4mg Take 1 Univers (ZOFRAN 3-25 tablet by ity of ODT) 4 mg 00:00: mouth [place] disintegrat 00 every 8 Medic al ing tablet (eight) Branch hours as needed for Nausea and Vomiting (N/V). benzonatate 2019-0 Yes [id number] 100mg Take 1 Univers 100 mg 3-25 capsule by ity of capsule 00:00: mouth 3 [place] 00 (three) Medical times Branch daily as needed for Cough. ibuprofen 2018-0 Yes [id number] 600mg Take 1 U nivers 600 mg 3-25 tablet by ity of tablet 00:00: mouth [place] 00 every 6 Medical (six) Branch hours as needed for Pain (scale 4-6). ondansetron 2019-0 Yes [id number] 4mg Take 1 Univers (ZOFRAN 3-25 tablet by ity of ODT) 4 mg 00:00: mouth [place] disintegrat 00 every 8 Medic al ing tablet (eight) Branch hours as needed for Nausea and Vomiting (N/V). benzonatate 2019-0 Yes [id number] 100mg Take 1 Univers 100 mg 3-25 capsule by ity of capsule 00:00: mouth 3 [place] 00 (three) Medical times Branch daily as needed for Cough. ibuprofen 2019-0 Yes [id number] 600mg Take 1 U nivers 600 mg 3-25 tablet by ity of tablet 00:00: mouth [place] 00 every 6 Medical (six) Branch hours as needed for Pain (scale 4-6). ondansetron 2019-0 Yes [id number] 4mg Take 1 Univers (ZOFRAN 3-25 tablet by ity of ODT) 4 mg 00:00: mouth [place] disintegrat 00 every 8 Medic al ing tablet (eight) Branch hours as needed for Nausea and Vomiting (N/V). benzonatate 2019-0 Yes [id number] 100mg Take 1 Univers 100 mg 3-25 capsule by ity of capsule 00:00: mouth 3 [place] 00 (three) Medical times Branch daily as needed for Cough. ibuprofen 2019-0 Yes [id number] 600mg Take 1 U nivers 600 mg 3-25 tablet by ity of tablet 00:00: mouth [place] 00 every 6 Medical (six) Branch hours as needed for Pain (scale 4-6). ondansetron 2019-0 Yes [id number] 4mg Take 1 Univers (ZOFRAN 3-25 tablet by ity of ODT) 4 mg 00:00: mouth [place] disintegrat 00 every 8 Medic al ing tablet (eight) Branch hours as needed for Nausea and Vomiting (N/V). benzonatate 2019-0 Yes [id number] 100mg Take 1 Univers 100 mg 3-25 capsule by ity of capsule 00:00: mouth 3 [place] 00 (three) Medical times Branch daily as needed for Cough. ibuprofen 2019-0 Yes [id number] 600mg Take 1 U nivers 600 mg 3-25 tablet by ity of tablet 00:00: mouth [place] 00 every 6 Medical (six) Branch hours as needed for Pain (scale 4-6). ondansetron 2019-0 Yes [id number] 4mg Take 1 Univers (ZOFRAN 3-25 tablet by ity of ODT) 4 mg 00:00: mouth [place] disintegrat 00 every 8 Medic al ing tablet (eight) Branch hours as needed for Nausea and Vomiting (N/V). benzonatate 2019-0 Yes [id number] 100mg Take 1 Univers 100 mg 3-25 capsule by ity of capsule 00:00: mouth 3 [place] 00 (three) Medical times Branch daily as needed for Cough. ibuprofen 2018-2020- No [id number] 600mg Take 1 Univers 600 mg 3-25 04-08 tablet by ity of tablet 00:00: 00:00 mouth [place] 00 :00 every 6 Medical (six) Branch hours as needed for Pain (scale 4-6). ondansetron 2020- No [id number] 4mg Take 1 Univers (ZOFRAN 3-25 04-08 tablet by ity of ODT) 4 mg 00:00: 00:00 mouth [place] disintegrat 00 :00 every 8 Medic al ing tablet (eight) Branch hours as needed for Nausea and Vomiting (N/V). benzonatate 2020- No [id number] 100mg Take 1 Univers 100 mg 3-25 04-08 capsule by ity of capsule 00:00: 00:00 mouth 3 [place] 00 :00 (three) Medical times Branch daily as needed for Cough. ibuprofen 2020- No [id number] 600mg Take 1 Univers 600 mg 3-25 04-08 tablet by ity of tablet 00:00: 00:00 mouth [place] 00 :00 every 6 Medical (six) Branch hours as needed for Pain (scale 4-6). ondansetron 2020- No [id number] 4mg Take 1 Univers (ZOFRAN 3-25 04-08 tablet by ity of ODT) 4 mg 00:00: 00:00 mouth [place] disintegrat 00 :00 every 8 Medic al ing tablet (eight) Branch hours as needed for Nausea and Vomiting (N/V). benzonatate 2020- No [id number] 100mg Take 1 Univers 100 mg 3-25 [...] (scale 7-10). No known No [facility] No [facility] No known No Univers [facility] No known No Univers medications [facility] Immunizations Ordered Filled Immunization Date Status Comments [facility] e Immunization Name Name TDAP 2014-05-30 Completed University of 00:00:00 [place] [facility] TDAP 2014-05-30 Completed University of 00:00:00 [place] [facility] TDAP 2014-05-30 Completed University of 00:00:00 [place] [facility] TDAP 2014-05-30 Completed University of 00:00:00 [place] [facility] TDAP 2014-05-30 Completed University of 00:00:00 [place] [facility] TDAP 2014-05-30 Completed University of 00:00:00 [place] [facility] TDAP 2014-05-30 Completed University of 00:00:00 [place] [facility] TDAP 2014-05-30 Completed University of 00:00:00 [place] [facility] TDAP 2014-05-30 Completed University of 00:00:00 [place] [facility] TDAP 2014-05-30 Completed University of 00:00:00 [place] [facility] Tdap 2014-05-30 Completed University of 00:00:00 [place] [facility] Tdap 2014-05-30 Completed University of 00:00:00 [place] [facility] Tdap 2014-05-30 Completed University of 00:00:00 [place] [facility] TDAP 2014-05-30 Completed University of 00:00:00 [facility] Influenza Virus 2014-04-04 Completed Universit y of [...] Universit y of Vaccine Quad IM 00:00:00 [place] Med ical Multi-dose 6+ MO Branch Influenza Virus 2014-04-04 Completed Universit y of Vaccine Quad IM 00:00:00 [place] Med ical Multi-dose 6+ MO Branch Influenza Virus 2014-04-04 Completed Universit y of Vaccine Quad IM 00:00:00 [place] Med ical Multi-dose 6+ MO Branch Influenza Virus 2014-04-04 Completed Universit y of Vaccine Quad IM 00:00:00 [place] Med ical Multi-dose 6+ MO Branch Influenza Virus 2014-04-04 Completed Universit y of Vaccine Quad IM 00:00:00 [place] Med ical Multi-dose 6+ MO Branch Influenza Virus 2014-04-04 Completed Universit y of Vaccine Quad IM 00:00:00 [place] Med ical Multi-dose 6+ MO Branch TDAP 2012-11-06 Completed University of 00:00:00 [facility] TDAP 2012-11-06 Completed University of 00:00:00 [facility] TDAP 2012-11-06 Completed University of 00:00:00 [facility] Branch TDAP 2012-11-06 Completed University of 00:00:00 [facility] Branch TDAP 2012-11-06 Completed University of 00:00:00 [facility] Branch TDAP 2012-11-06 Completed University of 00:00:00 [facility] Branch TDAP 2012-11-06 Completed University of 00:00:00 [facility] Branch TDAP 2012-11-06 Completed University of 00:00:00 [facility] TDAP 2012-11-06 Completed University of 00:00:00 [facility] Branch TDAP 2012-11-06 Completed University of 00:00:00 [facility] Branch Tdap 2012-11-06 Completed University of 00:00:00 [facility] Branch Tdap 2012-11-06 Completed University of 00:00:00 [facility] Branch Tdap 2012-11-06 Completed University of 00:00:00 [facility] TDAP 2012-11-06 Completed University of 00:00:00 [facility] Influenza Virus 2010-05-12 Completed Universit y of Vaccine 00:00:00 [facility] Influenza Virus 2010-05-12 Completed Universit y of Vaccine 00:00:00 [facility] Influenza Virus 2010-05-12 Completed Universit y of Vaccine 00:00:00 [facility] Influenza Virus 2010-05-12 Completed Universit y of Vaccine 00:00:00 [facility] Influenza Virus 2010-05-12 Completed Universit y of Vaccine 00:00:00 [facility] Influenza Virus 2010-05-12 Completed Universit y of Vaccine 00:00:00 [facility] Influenza Virus 2010-05-12 Completed Universit y of Vaccine 00:00:00 [facility] Influenza Virus 2010-05-12 Completed Universit y of Vaccine 00:00:00 [facility] Influenza Virus 2010-05-12 Completed Universit y of Vaccine 00:00:00 [facility] Influenza Virus 2010-05-12 Completed Universit y of Vaccine 00:00:00 [facility] Influenza Virus 2010-05-12 Completed Universit y of Vaccine 00:00:00 [facility] Influenza Virus 2010-05-12 Completed Universit y of Vaccine 00:00:00 [facility] Influenza Virus 2010-05-12 Completed Universit y of Vaccine 00:00:00 [facility] Influenza Virus 2010-05-12 Completed Universit y of Vaccine 00:00:00 [facility] Rubella 2010-01-29 Completed University of 00:00:00 [facility] Rubella 2010-01-29 Completed University of 00:00:00 [facility] Rubella 2010-01-29 Completed University of 00:00:00 [facility] Rubella 2010-01-29 Completed University of 00:00:00 [facility] Rubella 2010-01-29 Completed University of 00:00:00 [facility] Rubella 2010-01-29 Completed University of 00:00:00 [facility] Rubella 2010-01-29 Completed University of 00:00:00 [facility] Rubella 2010-01-29 Completed University of 00:00:00 [facility] Rubella 2010-01-29 Completed University of 00:00:00 [facility] Rubella 2010-01-29 Completed University of 00:00:00 [facility] Rubella 2010-01-29 Completed University of 00:00:00 [facility] Rubella 2010-01-29 Completed University of 00:00:00 [facility] Rubella 2010-01-29 Completed University of 00:00:00 [facility] Rubella 2010-01-29 Completed University of 00:00:00 [facility] Vital Signs Vital Name Observation Time Observation [...] 2020-09-11 14:10:00 25.70 kg/m2 Universi ty of [place] [facility] Systolic blood 2020-08-28 12:52:00 118 mm[Hg] Univer sity of pressure [place] [facility] Diastolic blood 2020-08-28 12:52:00 79 [...] weight 2020-04-28 13:55:00 63.504 kg Universi ty [facility] BMI 2020-04-28 13:55:00 25.61 kg/m2 Universi [facility] Oxygen saturation in 2020-04-28 13:55:00 100 /min [facility] Arterial blood by [facility] [place] Pulse oximetry Branch Systolic blood 2019-01-16 18:58:00 116 mm[Hg[facility] Diastolic blood 2019-01-16 18:58:00 78 mm[facility]Hg[facility] 2019-01-16 18:58:00 74 /min Universi [facility] Body temperature 2019-01-16 18:58:00 36.28 Ros[place] [facility] Respiratory rate 2019-01-16 18:58:00 16 /min [facility] Body height 2019-01-16 18:58:00 157.5 cm Universi [facility] Body weight 2019-01-16 18:58:00 [facility]596 [facility] BMI 2019-01-16 18:58:00 25.24 kg/m2 General acute hospital Procedures Procedure Date / Time Performed Performing Clinician John traylor POCT TEST 2020-09-11 14:10:00 Ghazal Mccloud [facility] CONSENT/REFUSAL FOR 2020-08-28 12:30:51 Doctor Unassigned, [facility] Medical Branch TREATMENT ASSIGNMENT OF BENEFITS 2020-08-28 12:30:34 Doctor Unassigned, No [facility] NOTICE OF PRIVACY 2020-04-28 13:46:31 Doctor Unassigned, No [facility] PRACTICES [facility] CONSENT/REFUSAL FOR 2020-04-28 13:46:21 Doctor Unassigned, [facility] TREATMENT POCT TEST 2019-01-16 19:00:00 Lizy Kirk General acute hospital ASSIGNMENT OF BENEFITS 2019-01-16 18:37:40 Doctor Unassigned, No [facility] Plan of Care Planned Activity Planned Date Details Comments Source Future Scheduled 2024-05-30 DTaP,Tdap,and Td Univers [facility] of [place] Test 00:00:00 Vaccines (3 - Td) Medical Br anch [code = DTaP,Tdap,and Td Vaccines (3 - Td)] Future Scheduled 2023-08-29 Screening for [facility] Test 00:00:00 malignant neoplasm of Medica l Branch cervix (procedure) [code = 822679205] Future Scheduled 2021-08-28 Depression screening Uni versity [facility] Test 00:00:00 (procedure) [code = Medical Branch [id number]] Future Scheduled 2021-01-21 INFLUENZA VACCINE Univer sity [facility] Test 00:00:00 (Season Ended) [code Medical Branch = INFLUENZA VACCINE (Season Ended)] Future Scheduled 2007-12-12 Hepatitis C screening [facility] [place] Test 00:00:00 (procedure) [code = Medical Branch [id number]] Future Scheduled 2005 SARS-CoV-2 (COVID-19) [facility] [place] Test 00:00:00 Vaccine (1) [code = Medical Branch SARS-CoV-2 (COVID-19) Vaccine (1)] Future Scheduled TRICHOMONAS AMPLIFIED [facility] [place] Test ASSAY [code = Medical Branch 72594-0] Encounters Start End Encounter Admission Attending Care Care Encounter Source Date/Time Date/Time Type Type Clinicians Facility Department ID 2021-03-21 Emergency [facility] [id number] Univers 09:31:41 ity [facility] 2020-12-08 2020-12-08 Outpatient R [facility] [id number] Univers 13:15:00 13:15:00 [id number] ity [facility] 2020-12-08 2020-12-08 Outpatient R [facility] [id number] Univers 13:15:00 13:15:00 ity of [facility] 2020-11-19 2020-11-19 Outpatient R [facility] [id number] Univers 10:30:00 10:30:00 [id number] ity [facility] 2020-11-19 2020-11-19 Outpatient R [facility] [id number] Univers 10:30:00 10:30:00 ity [facility] 2020-10-24 2020-10-24 Outpatient R [facility] [id number] Univers 08:30:00 08:30:00 [id number] ity [facility] 2020-10-24 2020-10-24 Outpatient R REAGAN [facility] [id number] Univers 08:30:00 08:30:00 LIZY ity o f [facility] 2020-09-30 2020-09-30 [facility] [id number] Univers 07:45:00 07:45:00 GHAZAL [id number] ity [facility] 2020-09-30 2020-09-30 [facility] [id number] Univers 07:45:00 07:45:00 GHAZAL [facility] 2020-09-25 2020-09-25 [facility], [facility] 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 SEATING [id number] REGIONAL [id number] MATERNAL [id number] & CHILD 107 [facility] 2020-09-25 2020-09-25 Outpatient R [facility] [id number] Univers 08:00:00 08:00:00 [id number] ity [facility] 2020-09-25 2020-09-25 Outpatient R [facility] [id number] Univers 08:00:00 08:00:00 ity [facility] 2020-09-11 2020-09-11 [facility] [id number] Univers 08:47:04 09:23:19 Visit Ghazal Medina 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 SEATING [id number] it y of REGIONAL [id number] Abner as MATERNAL [phone] Med ical & CHILD [address] [facility] 2020-09-11 2020-09-11 Outpatient R ROGERS [facility] [id number] Univers 09:00:00 09:00:00 GHAZAL [id number] ity [facility] 2020-09-11 2020-09-11 Outpatient R ROGERS [facility] [id number] Univers 09:00:00 09:00:00 GHAZAL itwilver [facility] 2020-09-01 2020-09-01 [facility]phone [facility] [id number] Univers 00:00:00 00:00:00 Ghazal Adam 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 SEATING [id number] it y of [facility] [id number] Abner as MATERNAL [phone] [address] 2020-08-28 2020-08-28 Office [facility] [id number] Univers 07:46:10 08:45:35 Visit Ghazal Medina 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 SEATING [id number] it y of [facility] [id number] Abner as MATERNAL [phone] [address] 2020-08-28 2020-08-28 Outpatient R ROGERS [facility] [id number] Univers 07:45:00 07:45:00 [facility]AL [id number] [facility] 2020-08-[facility] 2020-08-28 Outpatient R ROGERS [facility] [id number] Univers 07:45:00 07:45:00 GHAZAL itwilver [facility] 2020-08-28 2020-08-28 Orders Doctor NICOLE [id number] Univers 00:00:00 00:00:00 Only Unassigned, CHILANGO [id number] ity of [place] [facility] [id number] Abner as [phone] [address] 2020-04-28 2020-04-28 Emergency [facility] [id number] Univers 07:56:00 08:10:00 Bandar Diamond [id number] i ty of [place] [id number] [facility] [phone] [facility] [address] [place] 2020-04-28 2020-04-28 Orders Doctor COREY [id number] Univers 00:00:00 00:00:00 Only Unassigned, CHILANGO [id number] ity of [place] [facility] [id number] Abner as [phone] [address] 2019-01-16 2019-01-16 Office Akinjamie, [facility] [id number] Univers 13:40:36 14:50:57 Visit Lizy Rowe 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 SEATING [id number] ity of [facility] [id number] Abner as MATERNAL [phone] Med ical & CHILD [address] [place] [address] 2019-01-16 2019-01-16 Orders Doctor COREY [id number] Univers 00:00:00 00:00:00 Only Unassigned, CHILANGO [id number] ity of [place] [facility] [id number] Abner as [phone] [address] Results Test Description Test Time Test Comments Results Result Comments Source POCT TEST 2020-09-11 14:11:00 Test Item Value Reference Range Interpretation Comme nts POCT PREG (test code = 1605) Negative On board controls acceptable with C Line (test code = 3574) Yes POCT PREG LOT # (test code = 3575) POCT PREG TEST DATE (test code = 3576) [facility] [id number] 14:11:00 Test Item Value Reference Range Interpretation Comments POCT PREG (test code = 1605) Negative On board controls acceptable with C Yes Line (test code = 3574) POCT PREG LOT # (test code = 3575) POCT PREG TEST DATE (test code = 3576) [facility] [id number] 19:00:00 Test Item Value Reference Range Interpretation Comments POCT PREG (test code = 1605) Negative On board controls acceptable with C Yes Line (test code = 3574) POCT PREG LOT # (test code = 3575) POCT PREG TEST DATE (test code = 3576) [facility] [id number] 19:00:00 Test Item Value Reference Range Interpretation Comments POCT PREG (test code = 1605) Negative On board controls acceptable with C Yes Line (test code = 3574) POCT PREG LOT # (test code = 3575) POCT PREG TEST DATE (test code = 3576) [facility]
--- NOTE | 2021-09-04 17:47 | ER ---
Nurse's Notes [facility] Name: Ember Clark Age: 30 yrs Sex: Female : 1990 Arrival Date: 09/04/2021 Time: 16:59 Bed 12 Private MD: Diagnosis: Infected insect bite of the right breast Presentation: 09/04 17:05 Chief complaint: Patient states: "I got bit by a spider yesterday at work." Pt c/o ab2 right wrist pain and swelling. Pt has small red area noted to right wrist. Coronavirus screen: Vaccine status: Patient reports receiving the 2nd dose of the covid vaccine. Client denies travel out of the [place] in the last 14 days. At this time, the client does not indicate any symptoms associated with coronavirus-19. Ebola Screen: Patient negative for fever greater than or equal to 101.5 degrees Fahrenheit, and additional compatible Ebola Virus Disease symptoms Patient denies exposure to infectious person. Patient denies travel to an Ebola-affected area in the 21 days before illness onset. No symptoms or risks identified at this time. Initial Sepsis Screen: Does the patient meet any 2 criteria? No. Patient's initial sepsis screen is negative. Does the patient have a suspected source of infection? No. Patient's initial sepsis screen is negative. Risk Assessment: Do you want to hurt yourself or someone else? Patient reports no desire to harm self or others. Onset of symptoms is unknown. 17:05 Method Of Arrival: Ambulatory ab2 17:05 Acuity: MIKKI 4 ab2 Triage Assessment: 17:07 Bite description: bite sustained to right hand is superficial, from insect by a spider, ab2 animal information: Appearance: appeared well, vaccination(s) is unknown. General: Appears in no apparent distress. comfortable, Behavior is calm, cooperative, appropriate for age. Pain: Complains of pain in right hand. Neuro: Level of Consciousness is awake, alert, obeys commands, Oriented to person, place, time, situation, Appropriate for age Table And Desk Finisher are equal bilaterally Moves all extremities. Gait is steady, Speech is normal, Facial symmetry appears normal. Cardiovascular: No deficits noted. Denies chest pain, shortness of breath, Patient's skin is warm and dry. Respiratory: No deficits noted. Airway is patent Respiratory effort is even, unlabored, Respiratory pattern is regular, symmetrical. GI: No deficits noted. No signs and/or symptoms were reported involving the gastrointestinal system. Derm: Reports itching. Historical: - Allergies: 17:06 No Known Allergies; ab2 - PMHx: 17:06 Anemia; carpal tunnel; ab2 - PSHx: 17:06 section; Cholecystectomy; ab2 - Immunization history:: Adult Immunizations up to date. - Social history:: Smoking status: Patient denies any tobacco usage or history of. Screenin:55 Abuse screen: Denies threats or abuse. Denies injuries from another. Nutritional ab2 screening: No deficits noted. Tuberculosis screening: No symptoms or risk factors identified. Fall Risk None identified. Vital Signs: 17:05 BP 133 / 94; Pulse 70; Resp 17; Temp 98.4; Pulse Ox 100% on R/A; Weight 65.77 kg; ab2 Height 5 ft. 1 in. (154.94 cm); Pain 8/10; 17:05 Body Mass Index 27.40 (65.77 kg, 154.94 cm) ab2 ED Course: 16:59 Patient arrived in ED. as 17:02 Evangelista Bradshaw PA is PHCP. [facility] 17:02 Bassem Cheek DO is Attending Physician. [facility] 17:06 Triage completed. ab2 17:06 Arm band placed on left wrist. ab2 17:44 Philip Walker is Primary Nurse. ab2 17:55 Patient has correct armband on for positive identification. ab2 17:55 No provider procedures requiring assistance completed. Patient did not have IV access ab2 during this emergency room visit. Administered Medications: 17:47 Drug: traMADol 50 mg Route: PO; ab2 17:47 Drug: Doxycycline 100 mg Route: PO; ab2 17:47 Drug: Bactrim (trimethoprim-sulfamethoxazole) (160 mg-800 mg (DS) 1 tablet Route: PO; ab2 Outcome: 17:47 Discharge ordered by . [facility] 17:55 Discharged to home ambulatory. ab2 17:55 Condition: good 17:55 Discharge instructions given to patient, family, Instructed on discharge instructions, follow up and referral plans. medication usage, Demonstrated understanding of instructions, follow-up care, medications, Prescriptions given X 2. 17:56 Patient left the ED. ab2 Signatures: Evangelista Bradshaw PA PA jmm Martinez, Amelia as Bleininger, Philip ab2
--- NOTE | 2021-09-04 17:47 | EDPHYS ---
Physician Documentation [facility] Name: Ember Clark Age: 30 yrs Sex: Female : 1990 Arrival Date: 09/04/2021 Time: 16:59 Bed 12 Private MD: ED Physician Bassem Cheek HPI: 09/04 17:11 This 30 yrs old Black Female presents to ER via Ambulatory with complaints of Insect jmm Bite, Hand Pain. 17:11 Onset: The symptoms/episode began/occurred gradually, 1 day(s) ago. Possible cause(s): jmm spider bite. Associated signs and symptoms: Pertinent positives: erythema, swelling. Modifying factors: the symptoms are alleviated by nothing, the symptoms are aggravated by pressure. It is unknown whether or not the patient has had similar symptoms in the past. This is a 30-year-old female with a history of anemia that presents emerged part with complaints of right wrist pain following a insect bite, patient believes it was a spider bite. Denies fever chills but states she has increased redness and pain to the area.. Historical: - Allergies: 17:06 No Known Allergies; ab2 - PMHx: 17:06 Anemia; carpal tunnel; ab2 - PSHx: 17:06 section; Cholecystectomy; ab2 - Immunization history:: Adult Immunizations up to date. - Social history:: Smoking status: Patient denies any tobacco usage or history of. ROS: 17:11 Constitutional: Negative for fever, chills, and weight loss, Cardiovascular: Negative jmm for chest pain, palpitations, and edema, Respiratory: Negative for shortness of breath, cough, wheezing, and pleuritic chest pain. 17:11 MS/extremity: Positive for pain, swelling. 17:11 All other systems are negative. Exam: 17:11 Constitutional: This is a well developed, well nourished patient who is awake, alert, jmm and in no acute distress. Head/Face: atraumatic. Eyes: EOMI, no conjunctival erythema appreciated ENT: Moist Mucus Membranes Neck: Trachea midline, Supple Chest/axilla: Normal chest wall appearance and motion. Cardiovascular: Regular rate and rhythm. No edema appreciated Respiratory: Normal respirations, no respiratory distress appreciated Abdomen/GI: Non distended, soft Back: Normal ROM 17:11 Skin: Erythema and induration noted to the right dorsum of the wrist. Tender to palpation, full radial pulse appreciated. 17:11 Neuro: Orientation: is normal, Mentation: is normal, Memory: is normal. 17:11 Psych: Behavior/mood is pleasant, cooperative. Vital Signs: 17:05 BP 133 / 94; Pulse 70; Resp 17; Temp 98.4; Pulse Ox 100% on R/A; Weight 65.77 kg; ab2 Height 5 ft. 1 in. (154.94 cm); Pain 8/10; 17:05 Body Mass Index 27.40 (65.77 kg, 154.94 cm) ab2 MDM: 17:11 Patient medically screened. [facility] 17:45 Data reviewed: vital signs, nurses notes. Counseling: I had a detailed discussion with katerine the patient and/or guardian regarding: the historical points, exam findings, and any diagnostic results supporting the discharge/admit diagnosis, the need for outpatient follow up, to return to the emergency department if symptoms worsen or persist or if there are any questions or concerns that arise at home. ED course: Patient is alert nontoxic in appearance in the ED. Will be treated with oral antibiotics and patient is otherwise given strict return precautions. Patient agrees to plan of care.. Administered Medications: 17:47 Drug: traMADol 50 mg Route: PO; ab2 17:47 Drug: Doxycycline 100 mg Route: PO; ab2 17:47 Drug: Bactrim (trimethoprim-sulfamethoxazole) (160 mg-800 mg (DS) 1 tablet Route: PO; ab2 Disposition: 18:29 Co-signature as Attending Physician, Bassem SANTIZO was immediately available on-site ms3 in the Emergency Department for consultation in the care of the patient.. Disposition Summary: 09/04/21 17:47 Discharge Ordered Location: Home [facility] Condition: Stable [facility] Diagnosis - Infected insect bite of the right breast jm Followup: m - With: Private Physician - When: 2 - 3 days - Reason: Recheck today's complaints, Continuance of care, Re-evaluation by your physician Discharge Instructions: - Discharge Summary Sheet m - Insect Bite, Adult jmm Forms: - Medication Reconciliation Form [facility] - Thank You Letter [facility] - Antibiotic Education m - Prescription Opioid Use [facility] Prescriptions: - Doxycycline Hyclate 100 mg Oral Tablet - take 1 tablet by ORAL route every 12 hours; 20 tablet; Refills: 0, Product [facility] Selection Permitted - Bactrim DS 800-160 mg Oral Tablet - take 1 tablet by ORAL route every 12 hours for 10 days; 20 tablet; Refills: 0, [facility] Product Selection Permitted Signatures: Evangelista Bradshaw PA PA jmm Sims, Marcus, DO DO ms3 Philip Walker ab2
[2021-09-04] MEDS ORDERED: TRAMADOL HCL 50 MG TAB ONE (17:49)
[2021-09-04] MEDS ORDERED: DOXYCYCLINE 100 MG CAP PO ONE (17:49)
[2021-09-04] MEDS ORDERED: SMZ./TMP. 800/160 MG TABLET ONE (17:49)
[2021-09-04 18:49] VITALS: BP 133/94; TEMP 98.4; O2SAT 100
== END 2021-09-04 17:56 | disposition home or self-care (01) ==
LOC: ER 16:56
DX: L08.9 Local infection of the skin and subcutaneous tissue, unspecified (principal)
CPT/HCPCS: 99283

== ENCOUNTER 2021-10-09 14:15 | Emergency (ER) | payer OTHER ==
--- OUTSIDE RECORDS SUMMARY | 2021-10-09 14:20 | XMS REPORT | Continuity of Care Document ---
:1990 Author Organization [facility] t Address [address] [place] [address] Care Team Providers Name Role Phone Jae Hdz Primary Care Physician Jae KIRK Attending Clinician Unavailable Adam MCCLOUD Attending Clinician Unavailable Lab Attending Clinician Unavailable Jae Hdz Attending Clinician Adam Barry Attending Clinician Doctor Unassigned, Name Attending Clinician Unavailable Singer MATTHEWS Attending Clinician Payers Payer Name Policy Type Policy Number Effective Date Expiration Date Sindy appiah [facility] [id number] 2020 00:00:00 Problems Condition Condition Condition Status Onset Resolution Last Treating Co mments Source Name Details Category Date Date Treatment Clinician Date Contracept Contracept Disease Active 2019- U nivers marga marga 8 [facility] management [place] Well woman Well woman Disease Active 2019-0 U nivers exam exam 8 ity of 00:00: [address] Contracept Contracept Disease Active 2019-0 U nivers marga marga 8 [place] management [place] [facility] [place] Irregular Irregular Disease Active 2019-0 Uni vers menstrual menstrual 01-16 ity of cycle cycle 00:00: [place] [id number] Medical Branch History of History of Disease Active 2019-0 U nivers tubal tubal 8 ity of ligation ligation 00:00: [place] [id number] Medical Branch Encounter Encounter Disease Active 2018- Uni vers for well for well 2-26 [place]y of woman exam [place] Encounter Encounter Disease Active Uni vers for for - [place] of contrace[place]pt [place] marg[place] marga Medical management management Br anch , , unspecifie unspecifie d type d type History of History of Disease Active U nivers bilateral bilateral 07-18 ity of tubal tubal 00:00: [place] ligation ligation 00 Medica l Branch Screening Screening Disease Active Uni vers for STD for STD 07-18 it[place] of (sexually ([place] transmit[place] transmitte 00 Me dical d disease) d disease) Br anch Breast Breast Disease Active Univers tenderness tenderness 07-18 [place] of in female [place] [facility] [place] 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 -18 ity of 00:00: [place] 00 Medical Branch Disease Resolve 2017-07-18 2017-07-18 [...] Scheduled Disease Resolve 2014-08-27 2014-08-27 Univers d 3-02 00:00:00 17:37:04 ity of 00:00: [place] 00 Medical Branch History of History of [...] first first 00:00: [place] trimester trimester 00 [facility] ankush [V23.9] [V23.9] Branch Pelvic Pelvic Disease [...] 00:00:00 23:00:20 ity of during during 00:00: [place] , , 00 Me dical delivered delivered [...] 00:00:00 22:35:45 ity of physiologi physiologi 00:00: Nahid hearn c c 00 Medical disturbanc disturbanc Br [...] Active Univers ALLERGIE Class ity of [facility] Social History Social Habit Start Date Stop Date Quantity Comments Source History of 2013-12-07 Smoker University of tobacco use 00:00:00 [facility] Exposure to Not sure University of SARS-CoV-2 [facility] (event) [place] Tobacco use and 2020-09-11 2020-09-11 Never used Universit y of exposure 00:00:00 00:00:00 [facility] Alcohol intake 2020-09-11 2020-09-11 Current drinker Unive rsity of 00:00:00 00:00:00 of alcohol [facility] (finding) [place] Alcohol Comment 2017-07-18 2017-07-18 social Universit y of 00:00:00 00:00:00 [facility] Sex Ass[birth year] At [birth year] Universit y of 00:00:00 00:00:00 [facility] Smoking Status Start Date Stop Date Source Former smoker 2020-09-11 00:00:00 2020-09-11 00:00:00 Universi ty of [facility] Medications Ordered Filled Start Stop Current Ordering Indication Dosage Frequency Signature Comments Components Source Medication Medication Date Date Medication? Clinician (SIG) Name Name metroNIDAZO 2020- No [id number] 2000mg Take 4 Univers LE (FLAGYL) 09-01-13 tablets by i ty of 500 mg 00:00: 04:59 [place] tablet 00 :00 now for 1 Medical dose. Branch cephALEXin 2020- No [id number] 500mg Take 1 Univers (KEFLEX) 08-28- capsule by ity of 500 mg 00:00: 04:59 mouth 2 [place] capsule 00 :00 (two) Medical times [place] daily for 10 days. cephALEXin 2020- No [id number] 500mg Take 1 Univers (KEFLEX) 08-28- capsule by ity of 500 mg 00:00: 04:59 mouth 2 [place] capsule 00 :00 (two) Medical times [place] daily for 10 days. cephALEXin 2020- No [id number] 500mg Take 1 Univers (KEFLEX) 4-08 04-19 capsule by ity of 500 mg 00:00: 04:59 mouth 2 [place] capsule 00 :00 (two) Medical times Branch daily for 10 days. naproxen 2019-05 Yes [id number] 550mg Take 1 Un thiago sodium 2-07 tablet by ity of (ANAPROX 00:00: mouth 2 [place] DS) 550 mg 00 (two) Medical tablet times Branch daily with meals. methylPREDN 2019-05 Yes [id number] Take by Univers ISolone 06-29 mouth ity of (MEDROL, 00:00: SEE-INSTRU Abner as BLU,) 4 mg 00 CTIONS. Medica l tablets follow Branch package directions naproxen 2019-05 Yes [id number] 550mg Take 1 Un thiago sodium 2-07 tablet by ity of (ANAPROX 00:00: mouth 2 [place] DS) 550 mg 00 (two) Medical tablet times Branch daily with meals. methylPREDN 2019-05 Yes [id number] Take by Univers ISolone 06-29 mouth ity of (MEDROL, 00:00: SEE-INSTRU [place] as BLU,) 4 mg 00 CTIONS. Medica l tablets follow Branch package directions naproxen 2019-05- No [id number] 550mg Take 1 U nivers sodium 2-11 23-08 tablet by ity of (ANAPROX 00:00: 00:00 mouth 2 [place] DS) 550 mg 00 :00 (two) Medical tablet times Branch daily with meals. methylPREDN 2019-05- No [id number] Take by Univers ISolone 06-29-08 mouth ity of (MEDROL, 00:00: 00:00 [place] BLU,) 4 mg 00 :00 CTIONS. Medica l tablets follow Branch package directions naproxen 2019-05- No [id number] 550mg Take 1 U nivers sodium 2-07 04-08 tablet by ity of (ANAPROX 00:00: 00:00 mouth 2 [place] DS) 550 mg 00 :00 (two) Medical tablet times Branch daily with meals. methylPREDN 2019-05 No [id number] Take by Univers ISolone 06-29 04-08 mouth ity of (MEDROL, 00:00: 00:00 [place] BLU,) 4 mg 00 :00 CTIONS. Medica l tablets follow Branch package directions levonorgest Yes [id number] 1{tbl} Take 1 Univers rel-ethinyl 8-27 tablet by ity of estradiol 00:00: mouth [place] (SRONYX) 00 daily. Medical 0.1-20 Branch mg-mcg per tablet levonorgest Yes [id number] 1{tbl} Take 1 Univers rel-ethinyl 8-27 tablet by ity of estradiol 00:00: mouth [place] (SRONYX) 00 daily. Medical 0.1-20 Branch mg-mcg per tablet levonorgest Yes [id number] 1{tbl} Take 1 Univers rel-ethinyl 8-27 tablet by ity of estradiol 00:00: mouth [place] (SRONYX) 00 daily. Medical 0.1-20 Branch mg-mcg per tablet levonorgest Yes [id number] 1{tbl} Take 1 Univers rel-ethinyl 8-27 tablet by ity of estradiol 00:00: mouth [place] (SRONYX) 00 daily. Medical 0.1-20 Branch mg-mcg per tablet levonorgest Yes [id number] 1{tbl} Take 1 Univers rel-ethinyl 8-27 tablet by ity of estradiol 00:00: mouth [place] (SRONYX) 00 daily. Medical 0.1-20 Branch mg-mcg per tablet levonorgest 2020- No [id number] 1{tbl} Take 1 Univers rel-ethinyl 8-27 04-08 tablet by it y of estradiol 00:00: 00:00 mouth [place] (SRONYX) 00 :00 daily. Medical 0.1-20 Branch mg-mcg per tablet levonorgest 2020- No [id number] 1{tbl} Take 1 Univers rel-ethinyl 8-27 04-08 tablet by it y of estradiol 00:00: 00:00 mouth [place] (SRONYX) 00 :00 daily. Medical 0.1-20 Branch mg-mcg per tablet ibuprofen Yes [id number] 600mg Take 1 U nivers 600 mg 3-25 tablet by ity of tablet 00:00: mouth [place] 00 every 6 Medical (six) Branch hours as needed for Pain (scale 4-6). ondansetron Yes [id number] 4mg Take 1 Univers (ZOFRAN 3-25 tablet by ity of ODT) 4 mg 00:00: mouth [place] disintegrat 00 every 8 Medic al ing tablet (eight) Branch hours as needed for Nausea and Vomiting (N/V). benzonatate 2019-0 Yes [id number] 100mg Take 1 Univers 100 mg 3-25 capsule by ity of capsule 00:00: mouth 3 [place] 00 (three) Medical times Branch daily as needed for Cough. ibuprofen 2019-0 Yes [id number] 600mg Take 1 U nivers 600 mg 3-25 tablet by ity of tablet 00:00: mouth [place] 00 every 6 Medical (six) Branch hours as needed for Pain (scale 4-6). ondansetron 2019-0 Yes [id number] 4mg Take 1 Univers (ZOFRAN 3-25 tablet by ity of ODT) 4 mg 00:00: mouth [place] disintegrat 00 every 8 Medic al ing tablet (eight) Branch hours as needed for Nausea and Vomiting (N/V). benzonatate 2019-0 Yes [id number] 100mg Take 1 Univers 100 mg 3-25 capsule by ity of capsule 00:00: mouth 3 [place] 00 (three) Medical times Branch daily as needed for Cough. ibuprofen 2018-0 Yes [id number] 600mg Take 1 U nivers 600 mg 3-25 tablet by ity of tablet 00:00: mouth [place] 00 every 6 Medical (six) Branch hours as needed for Pain (scale 4-6). ondansetron 2019-0 Yes [id number] 4mg Take 1 Univers (ZOFRAN 3-25 tablet by ity of ODT) 4 mg 00:00: mouth [place] disintegrat 00 every 8 Medic al ing tablet (eight) Branch hours as needed for Nausea and Vomiting (N/V). benzonatate 2019-0 Yes [id number] 100mg Take 1 Univers 100 mg 3-25 capsule by ity of capsule 00:00: mouth 3 [place] 00 (three) Medical times Branch daily as needed for Cough. ibuprofen 2019-0 Yes [id number] 600mg Take 1 U nivers 600 mg 3-25 tablet by ity of tablet 00:00: mouth [place] 00 every 6 Medical (six) Branch hours as needed for Pain (scale 4-6). ondansetron 2019-0 Yes [id number] 4mg Take 1 Univers (ZOFRAN 3-25 tablet by ity of ODT) 4 mg 00:00: mouth [place] disintegrat 00 every 8 Medic al ing tablet (eight) Branch hours as needed for Nausea and Vomiting (N/V). benzonatate 20190 Yes [id number] 100mg Take 1 Univers 100 mg 3-25 capsule by ity of capsule 00:00: mouth 3 [place] 00 (three) Medical times Branch daily as needed for Cough. ibuprofen Yes [id number] 600mg Take 1 U nivers 600 mg 3-25 tablet by ity of tablet 00:00: mouth [place] 00 every 6 Medical (six) Branch hours as needed for Pain (scale 4-6). ondansetron 2018- Yes [id number] 4mg Take 1 Univers (ZOFRAN 3-25 tablet by ity of ODT) 4 mg 00:00: mouth [place] disintegrat 00 every 8 Medic al ing tablet (eight) Branch hours as needed for Nausea and Vomiting (N/V). benzonatate Yes [id number] 100mg Take 1 Univers 100 mg 3-25 capsule by ity of capsule 00:00: mouth 3 [place] 00 (three) Medical times Branch daily as needed for Cough. ibuprofen Yes [id number] 600mg Take 1 U nivers 600 mg 3-25 tablet by ity of tablet 00:00: mouth [place] 00 every 6 Medical (six) Branch hours as needed for Pain (scale 4-6). ondansetron Yes [id number] 4mg Take 1 Univers (ZOFRAN 3-25 tablet by ity of ODT) 4 mg 00:00: mouth [place] disintegrat 00 every 8 Medic al ing tablet (eight) Branch hours as needed for Nausea and Vomiting (N/V). benzonatate Yes [id number] 100mg Take 1 Univers 100 mg 3-25 capsule by ity of capsule 00:00: mouth 3 [place] 00 (three) Medical times Branch daily as needed for Cough. ibuprofen 2018-2020- No [id number] 600mg Take 1 Univers 600 mg 3-25 04-08 tablet by ity of tablet 00:00: 00:00 mouth [place] 00 :00 every 6 Medical (six) Branch hours as needed for Pain (scale 4-6). ondansetron 2018-2020- No [id number] 4mg Take 1 Univers (ZOFRAN 3-25 04-08 tablet by ity of ODT) 4 mg 00:00: 00:00 mouth [place] disintegrat 00 :00 every 8 Medic al ing tablet (eight) Branch hours as needed for Nausea and Vomiting (N/V). benzonatate 2020- No [id number] 100mg Take 1 Univers 100 mg 3-25 04-08 capsule by ity of capsule 00:00: 00:00 mouth 3 [place] 00 :00 (three) Medical times Branch daily as needed for Cough. ibuprofen 2020- No [id number] 600mg Take 1 Univers 600 mg 3-25 04-08 tablet by ity of tablet 00:00: 00:00 mouth [place] 00 :00 every 6 Medical (six) Branch hours as needed for Pain (scale 4-6). ondansetron 2020- No [id number] 4mg Take 1 Univers (ZOFRAN 3-25 04-08 tablet by ity of ODT) 4 mg 00:00: 00:00 mouth [place] disintegrat 00 :00 every 8 Medic al ing tablet (eight) Branch hours as needed for Nausea and Vomiting (N/V). benzonatate 2020- No [id number] 100mg Take 1 Univers 100 mg 3-25 [...] (scale 7-10). No known No Univers medications ity [facility] No known No Univers medications [facility] [place] [facility] No known No Univers medications [facility] [place] [facility] No known No Univers medications [facility] Immunizations Ordered Filled Immunization Date Status Comments [facility] e Immunization Name Name [facility] 2014-05-30 Completed University of 00:00:00 [facility] 2014-05-30 Completed University of 00:00:00 [facility] 2014-05-30 Completed University of 00:00:00 [facility] 2014-05-30 Completed University of 00:00:00 [facility] 2014-05-30 Completed University of 00:00:00 [place] [facility] TDAP 2014-05-30 Completed University of 00:00:00 [place] [facility] TDAP 2014-05-30 Completed University of 00:00:00 [place] [facility] TDAP 2014-05-30 Completed University of 00:00:00 [place] [facility] TDAP 2014-05-30 Completed University of 00:00:00 [place] [facility] TDAP 2014-05-30 Completed University of 00:00:00 [place] [facility] Tdap 2014-05-30 Completed University of 00:00:00 [place] [facility] Tdap 2014-05-30 Completed University of 00:00:00 [place] [facility] Tdap 2014-05-30 Completed University of 00:00:00 [facility] Branch TDAP 2014-05-30 Completed University of 00:00:00 [facility] Influenza Virus 2014-04-04 Completed Universit y of Vaccine Quad IM 00:00:00 [place] Med ical Multi-dose 6+ MO Branch Influenza [...] Universit y of Vaccine [place] IM 00:00:00 [place] Med ical Multi-dose 6+ MO Branch Influenza Virus 2014-04-04 Completed Universit y of Vaccine [place] IM 00:00:00 [place] Med ical Multi-dose 6+ MO Branch Influenza Virus 2014-04-04 Completed Universit y of Vaccine [place] IM 00:00:00 [place] Med ical Multi-dose 6+ MO Branch Influenza Virus 2014-04-04 Completed Universit y of Vaccine [place] IM 00:00:00 [facility] ical Multi-dose 6+ MO Branch TDAP 2012-11-06 Completed University of 00:00:00 [facility] Branch TDAP 2012-11-06 Completed University of 00:00:00 [facility] Branch TDAP 2012-11-06 Completed University of 00:00:00 [facility] Branch TDAP 2012-11-06 Completed University of 00:00:00 [facility] Branch TDAP 2012-11-06 Completed University of 00:00:00 [facility] Branch TDAP 2012-11-06 Completed University of 00:00:00 [facility] Branch TDAP 2012-11-06 Completed University of 00:00:00 [facility] Branch TDAP 2012-11-06 Completed University of 00:00:00 [facility] Branch TDAP 2012-11-06 Completed University of 00:00:00 [facility] Branch TDAP 2012-11-06 Completed University of 00:00:00 [facility] Branch Tdap 2012-11-06 Completed University of 00:00:00 [facility] Branch Tdap 2012-11-06 Completed University of 00:00:00 [facility] Tdap 2012-11-06 Completed University of 00:00:00 [facility] TDAP 2012-11-06 Completed University of 00:00:00 [facility] Influenza Virus 2010-05-12 Completed Universit y of Vaccine 00:00:00 [facility] Influenza Virus 2010-05-12 Completed Universit y of Vaccine 00:00:00 [facility] Influenza Virus 2010-05-12 Completed Universit y of Vaccine 00:00:00 [facility] Influenza Virus 2010-05-12 Completed Universit y of Vaccine 00:00:00 [facility] Influenza Virus 2010-05-12 Completed Universit y of Vaccine 00:00:00 [facility] Influenza Virus 2010-05-12 Completed Universit y of Vaccine 00:00:00 [facility] Influenza Virus 2010-05-12 Completed Universit y of Vaccine 00:00:00 [facility] Influenza Virus 2010-05-12 Completed Universit y of Vaccine 00:00:00 [facility] Influenza Virus 2010-05-12 Completed Universit y of Vaccine 00:00:00 [facility] Influenza Virus 2010-05-12 Completed Universit y of Vaccine 00:00:00 [facility] Influenza Virus 2010-05-12 Completed Universit y of Vaccine 00:00:00 [facility] Influenza Virus 2010-05-12 Completed Universit y of Vaccine 00:00:00 [facility] Influenza Virus 2010-05-12 Completed Universit y of Vaccine 00:00:00 [facility] Influenza Virus 2010-05-12 Completed Universit y of Vaccine 00:00:00 [facility] Rubella 2010-01-29 Completed University of 00:00:00 [facility] Rubella 2010-01-29 Completed University of 00:00:00 [facility] Rubella 2010-01-29 Completed University of 00:00:00 [facility] Rubella 2010-01-29 Completed University of 00:00:00 [facility] Rubella 2010-01-29 Completed University of 00:00:00 [facility] Rubella 2010-01-29 Completed University of 00:00:00 [facility] Branch Rubella 2010-01-29 Completed University of 00:00:00 [facility] Branch Rubella 2010-01-29 Completed University of 00:00:00 [facility] Rubella 2010-01-29 Completed University of 00:00:00 [facility] Rubella 2010-01-29 Completed University of 00:00:00 [facility] Rubella 2010-01-29 Completed University of 00:00:00 [facility] Rubella 2010-01-29 Completed University of 00:00:00 [facility] Rubella 2010-01-29 Completed University of 00:00:00 [facility] Rubella 2010-01-29 Completed University of 00:00:00 [facility] Vital Signs Vital Name Observation Time Observation Value Comments Source Systolic blood 2020-09-11 14:10:00 113 mm[Hg] Univer sity of pressure [facility] Diastolic blood 2020-09-11 14:10:00 75 mm[Hg] Unive rsity of pressure [facility] Heart rate 2020-09-11 14:10:00 67 /min [facility] [place] [facility] Body temperature 2020-09-11 14:10:00 36.72 [place] Univ ersity of [place] [facility] Respiratory rate 2020-09-11 14:10:00 16 /min Univ ersity of [place] [facility] Body height 2020-09-11 14:10:00 154.9 cm [facility] [place] [facility] Body weight 2020-09-11 14:10:00 61.689 kg [facility] [place] [facility] BMI 2020-09-11 14:10:00 25.70 kg/m2 [facility] [place] [facility] Systolic blood 2020-08-28 12:52:00 118 mm[Hg] Univer sity of pressure [place] [facility] Diastolic blood 2020-08-28 12:52:00 79 mm[Hg] Unive rsity of pressure [place] [facility] Heart rate 2020-08-28 12:52:00 71 /min [facility]i [facility] [place] [facility] Body temperature 2020-08-28 12:52:00 36.56 [place] Univ ers[facility] of [place] [facility] Respiratory rate 2020-08-28 12:52:00 16 /min Univ ersity of [place] [facility] Body height 2020-08-28 12:52:00 157.5 cm [facility]i [facility] [place] [facility] Body weight 2020-08-28 12:52:00 61.718 kg [facility] [place] [facility] BMI 2020-08-28 12:52:00 24.89 kg/m2 [facility] [place] [facility] Systolic blood 2020-04-28 13:55:00 114 mm[Hg] Univer sity of pressure [place] [facility] Diastolic blood 2020-04-28 13:55:00 78 mm[Hg] Unive rsity of pressure [place] [facility] Heart rate 2020-04-28 13:55:00 87 /min [facility] [place] [facility] Body temperature 2020-04-28 13:55:00 37.44 [place] [facility] [place] [facility] Respiratory rate 2020-04-28 13:55:00 17 /min Univ [facility] [place] [facility] Body weight 2020-04-28 13:55:00 63.504 kg [facility] [place] [facility] BMI 2020-04-28 13:55:00 25.61 kg/m2 [facility]i [facility] [place] [facility] Oxygen saturation in 2020-04-28 13:55:00 100 /min [facility] Arterial blood by [facility] Pulse oximetry Branch Systolic blood 2019-01-16 18:58:00 116 mm[Hg] Univer sity of pressure [facility] Diastolic blood 2019-01-16 18:58:00 78 mm[Hg] [facility] Heart rate 2019-01-16 18:58:00 74 /min [facility] Body temperature 2019-01-16 18:58:00 36.28 [place] [facility] Respiratory rate 2019-01-16 18:58:00 16 /min [facility] Body height 2019-01-16 18:58:00 157.5 cm [facility] Body weight 2019-01-16 18:58:00 62.596 kg [facility] BMI 2019-01-16 18:58:00 25.24 kg/m2 [facility] Procedures Procedure Date / Time Performed Performing Clinician Sour e POCT TEST 2020-09-11 14:10:[address] [facility] CONSENT/REFUSAL FOR 2020-08-28 12:30:51 [facility]igned, [facility] Name Medical Branch TREATMENT ASSIGNMENT OF BENEFITS 2020-08-28 12:30:34 Doctor Unassigned, No [facility] NOTICE OF PRIVACY 2020-04-28 13:46:31 Doctor Unassigned, No [facility] PRACTICES [facility] CONSENT/REFUSAL FOR 2020-04-28 13:46:21 Doctor Unassigned, [facility] Medical [place] TREATMENT POCT TEST 2019-01-16 19:00:00 Lizy Kirk [facility] ASSIGNMENT OF BENEFITS 2019-01-16 18:37:40 Doctor Unassigned, No [facility] Plan of Care Planned Activity Planned Date Details Comments Source Future Scheduled 2024-05-30 DTaP,Tdap,and Td [facility] Test 00:00:00 Vaccines (3 - Td) Medical Br anch [code = DTaP,Tdap,and Td Vaccines (3 - Td)] Future Scheduled 2023-08-29 Screening for [facility] Test 00:00:00 malignant neoplasm of Medica l Branch cervix (procedure) [code = 798093494] Future Scheduled 2021-08-28 Depression screening [facility] [place] Test 00:00:00 (procedure) [code = Medical Branch [id number]] Future Scheduled 2021-01-21 INFLUENZA VACCINE [facility] [place] Test 00:00:00 (Season Ended) [code Medical Branch = INFLUENZA VACCINE (Season Ended)] Future Scheduled 2007-12-12 Hepatitis C screening [facility] [place] Test 00:00:00 (procedure) [code = Medical Branch [id number]] Future Scheduled 2005 SARS-CoV-2 (COVID-19) [facility] [place] Test 00:00:00 Vaccine (1) [code = Medical Branch SARS-CoV-2 (COVID-19) Vaccine (1)] Future Scheduled TRICHOMONAS AMPLIFIED [facility] [place] Test ASSAY [code = Medical Branch 50150-7] Encounters Start End Encounter Admission Attending Care Care Encounter Source Date/Time Date/Time Type Type Clinicians Facility Department ID 2021-03-21 Emergency [facility] [id number] Univers 09:31:41 ity [facility] 2020-12-08 2020-12-08 Outpatient R [facility] [id number] Univers 13:15:00 13:15:00 [id number] ity [facility] 2020-12-08 2020-12-08 Outpatient R [facility] [id number] Univers 13:15:00 13:15:00 ity of [facility] 2020-11-19 2020-11-19 Outpatient R [facility] [id number] Univers 10:30:00 10:30:00 [id number] ity of [facility] 2020-11-19 2020-11-19 Outpatient R [facility] [id number] Univers 10:30:00 10:30:00 ity of [facility] 2020-10-24 2020-10-24 Outpatient R [facility] [id number] Univers 08:30:00 08:30:00 [id number] ity of [facility] 2020-10-24 2020-10-24 Outpatient R AKINSIPE, [facility] [id number] Univers 08:30:00 08:30:00 LIZY daley o f [facility] 2020-09-30 2020-09-30 Outpatient R ROGERS [facility] [id number] Univers 07:45:00 07:45:00 GHAZAL [id number] [facility] 2020-09-30 2020-09-30 [facility] [id number] Univers 07:45:00 07:45:00 GHAZAL [facility] [facility] 2020-09-25 2020-09-25 [facility], [facility] [id number]. [id number] Univers 07:46:58 08:17:24 Visit Lizy Kirk MATERIALS PLANNER [id number]. 10 ity of REGIONAL [id number] Abner as MATERNAL [phone] [facility] ical & CHILD [address] [place] [address] 2020-09-25 2020-09-25 [facility], [facility] [id number] 07:46:58 08:17:[address] [facility] MATERIALS PLANNER [id number] REGIONAL [id number] MATERNAL [phone] & CHILD [address] [place] [address] 2020-09-25 2020-09-25 Outpatient R [facility] [id number] Univers 08:00:00 08:00:00 [id number] [facility] 2020-09-25 2020-09-25 Outpatient R [facility] [id number] Univers 08:00:00 08:00:00 [facility] 2020-09-11 2020-09-11 [facility] [id number] Univers 08:47:04 09:23:19 Visit Ghazal Medina MATERIALS PLANNER [id number] it y of REGIONAL [id number] Abner as MATERNAL [phone] [facility] & CHILD [address] [place] [address] 2020-09-11 2020-09-11 [facility] [id number] Univers 09:00:00 09:00:00 GHAZAL [id number] [facility] 2020-09-11 2020-09-11 Out[facility] [id number] Univers 09:00:00 09:00:00 GHAZAL daley [facility] 2020-09-01 2020-09-01 Telephone [facility] [id number] Univers 00:00:00 00:00:00 Ghazal Adam MATERIALS PLANNER [id number] it y of [facility] [id number] Abner as MATERNAL [phone] Med ical & CHILD [address] [place] [address] 2020-08-28 2020-08-28 Office [facility] [id number] Univers 07:46:10 08:45:35 Visit Ghazal Medina MATERIALS PLANNER [id number] it y of [facility] [id number] Abner as MATERNAL [phone] [facility] & CHILD [address] [place] [address] 2020-08-28 2020-08-28 Outpatient [facility] [id number] Univers 07:45:00 07:45:00 GHAZAL [id number] edi [facility] 2020-08-28 2020-08-28 Outpatient P[facility] [id number] Univers 07:45:00 07:45:00 GHAZAL daley [facility] 2020-08-28 2020-08-28 Orders Doctor NICOLE [id number] Univers 00:00:00 00:00:00 Only UnassignedCHILANGO [id number] ity of [place] [facility] [id number] Abner as [phone] [facility] [address] [place] 2020-04-28 2020-04-28 Emergency [facility] [id number] Univers 07:56:00 08:10:00 Bandar Diamond [id number] i ty of [place] [id number] [facility] [phone] [facility] [address] [place] 2020-04-28 2020-04-28 Orders Doctor NICOLE [id number] Univers 00:00:00 00:00:00 Only Unassigned, CHILANGO [id number] ity of [place] [facility] [id number] Abner as [phone] [address] 2019-01-16 2019-01-16 Office ADELE Kirk [id number] Univers 13:40:36 14:50:57 Visit Lizy Rowe MATERIALS PLANNER [id number] ity of [facility] [id number] Abner as MATERNAL [phone] Med ical & CHILD [address] [place] [address] 2019-01-16 2019-01-16 Orders Doctor NICOLE [id number] Univers 00:00:00 00:00:00 Only Unassigned, CHILANGO [id number] ity of [place] [facility] [id number] Abner as [phone] [address] Results Test Description Test Time Test Comments Results Result Comments Source POCT TEST 2020-09-11 14:11:00 Test Item Value Reference Range Interpretation Comme nts POCT PREG (test code = 1605) Negative On board controls acceptable with C Line (test code = 3574) Yes POCT PREG LOT # (test code = 3575) POCT PREG TEST DATE (test code = 3576) [facility] [id number] 14:11:00 Test Item Value Reference Range Interpretation Comments POCT PREG (test code = 1605) Negative On board controls acceptable with C Yes Line (test code = 3574) POCT PREG LOT # (test code = 3575) POCT PREG TEST DATE (test code = 3576) [facility] [id number] 19:00:00 Test Item Value Reference Range Interpretation Comments POCT PREG (test code = 1605) Negative On board controls acceptable with C Yes Line (test code = 3574) POCT PREG LOT # (test code = 3575) POCT PREG TEST DATE (test code = 3576) [facility] [id number] 19:00:00 Test Item Value Reference Range Interpretation Comments POCT PREG (test code = 1605) Negative On board controls acceptable with C Yes Line (test code = 3574) POCT PREG LOT # (test code = 3575) POCT PREG TEST DATE (test code = 3576) [facility]
--- NOTE | 2021-10-09 15:58 | ER ---
Nurse's Notes [facility] Name: Ebmer Clark Age: 30 yrs Sex: Female : 1990 Arrival Date: 10/09/2021 Time: 14:29 Bed 18 Private MD: Diagnosis: Cellulitis of left lower limb;Cellulitis of right lower limb Presentation: 10/09 14:58 Chief complaint: Patient states: she has an unknown insect bite on her left hip and ap3 right ankle of which she noticed this morning. patient states she believes it could be a spider. Coronavirus screen: At this time, the client does not indicate any symptoms associated with coronavirus-19. Ebola Screen: No symptoms or risks identified at this time. Initial Sepsis Screen: Does the patient meet any 2 criteria? No. Patient's initial sepsis screen is negative. Does the patient have a suspected source of infection? No. Patient's initial sepsis screen is negative. Risk Assessment: Do you want to hurt yourself or someone else? Patient reports no desire to harm self or others. Onset of symptoms was October 09, 2021. 14:58 Method Of Arrival: Ambulatory ap3 14:58 Acuity: MIKKI 4 ap3 Triage Assessment: 15:02 General: Appears in no apparent distress. comfortable, Behavior is calm, cooperative. ap3 Pain: Complains of pain in left hip and right ankle. Neuro: Level of Consciousness is awake, alert, obeys commands, Oriented to person, place, time, situation, Gait is steady, Speech is normal. Cardiovascular: Patient's skin is warm and dry. Respiratory: Airway is patent Respiratory effort is even, unlabored, Respiratory pattern is regular, symmetrical. Derm: Reports insect bite area on her right ankle and left hip. 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 - Social history:: Smoking status: Patient denies any tobacco usage or history of. Patient uses alcohol, occasionally. Screenin:02 Abuse screen: Denies threats or abuse. Nutritional screening: No deficits noted. ap3 Tuberculosis screening: No symptoms or risk factors identified. Fall Risk None identified. Assessment: 15:49 General: Appears in no apparent distress. Behavior is calm, cooperative. Pain: bautista Complains of pain in let tigh and right ankle. Derm: Reports itching, pain. Vital Signs: 14:58 BP 112 / 72; Pulse 72; Resp 15; Temp 97.9; Pulse Ox 100% ; Weight 63.5 kg; Height 5 ft. ap3 1 in. (154.94 cm); Pain 8/10; 14:58 Body Mass Index 26.45 (63.50 kg, 154.94 cm) ap3 ED Course: 14:29 Patient arrived in ED. ds1 14:31 Rafiq Mirza PA is PHCP. cp 14:31 May Eli MD is Attending Physician. cp 15:01 Triage completed. ap3 15:03 Arm band placed on left wrist. ap3 15:28 Marta Watt RN is Primary Nurse. bautista 15:49 Patient has correct armband on for positive identification. Bed in low position. bautista 15:49 No provider procedures requiring assistance completed. bautista 16:28 Patient did not have IV access during this emergency room visit. bautista Administered Medications: 16:25 Drug: Ibuprofen 600 mg Route: PO; bautista 16:27 Follow up: Response: No adverse reaction bautista 16:25 Drug: KeFLEX (cephalexin) 500 mg Route: PO; bautista 16:26 Follow up: Response: No adverse reaction bautista 16:25 Drug: Bactrim (trimethoprim-sulfamethoxazole) (160 mg-800 mg (DS) 1 tablet Route: PO; bautista 16:26 Follow up: Response: No adverse reaction bautista 16:26 Drug: Tylenol 650 mg Route: PO; bautista 16:27 Follow up: Response: No adverse reaction bautista Medication: 15:03 VIS not applicable for this client. ap3 Outcome: 15:57 Discharge ordered by . cp 16:28 Discharged to home ambulatory. bautista 16:28 Condition: good 16:28 Discharge instructions given to patient, Prescriptions given X 3. 16:28 Patient left the ED. bautista Signatures: Nayely Madrigal ds1 Rafiq Mirza PA PA cp Prokisch, Amanda, RN RN ap3 Marta Watt RN RN bautista Corrections: (The following items were deleted from the chart) 15:02 15:01 PMHx: carpal tunnel; ap3 ap3 15: 15:01 PSHx: section; ap3 ap3 15: 15:01 PSHx: Cholecystectomy; ap3 ap3
--- NOTE | 2021-10-09 15:58 | EDPHYS ---
Physician Documentation [facility] Name: Ember Clark Age: 30 yrs Sex: Female : 1990 Arrival Date: 10/09/2021 Time: 14:29 Bed 18 Private MD: ED Physician May Eli HPI: 10/09 15:53 This 30 yrs old Black Female presents to ER via Ambulatory with complaints of Insect cp Bite. 15:53 possible spider bite. Onset: The symptoms/episode began/occurred noticed this morning. cp Associated signs and symptoms: Pertinent positives: erythema at site, pain at site, swelling at site, tenderness, Pertinent negatives: fever. 15:55 Patient reports swelling to lateral site of right ankle and lateral side of left upper cp leg noticed this morning. Believes she was bitten by a spider. 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 - Social history:: Smoking status: Patient denies any tobacco usage or history of. Patient uses alcohol, occasionally. ROS: 16:00 Constitutional: Negative for body aches, chills, fever, poor PO intake. cp 16:00 ENT: Negative for drainage from ear(s), ear pain, sore throat, difficulty swallowing, cp difficulty handling secretions. 16:00 Cardiovascular: Negative for chest pain. 16:00 Respiratory: Negative for cough, shortness of breath, wheezing. 16:00 Abdomen/GI: Negative for abdominal pain, nausea, vomiting, and diarrhea. 16:00 Skin: Positive for swelling, of the lateral side of right ankle and lateral side of left upper leg. 16:00 Neuro: Negative for altered mental status, headache, weakness. 16:00 All other systems are negative. Exam: 16:05 Constitutional: The patient appears in no acute distress, alert, awake, non-toxic, well cp developed, well nourished, uncomfortable. 16:05 Cardiovascular: Rate: normal. cp 16:05 Respiratory: the patient does not display signs of respiratory distress, Respirations: normal, no use of accessory muscles, no retractions, labored breathing, is not present. 16:05 Abdomen/GI: Exam negative for discomfort, distension, guarding, Inspection: abdomen appears normal. 16:05 Back: pain, is absent, ROM is normal. 16:05 Musculoskeletal/extremity: Extremities: noted in the lateral aspect left upper leg: pain, swelling, tenderness, skin with erythema, dry, intact, noted in the lateral aspect right ankle: mild swelling noted, tender to touch. Vital Signs: 14:58 BP 112 / 72; Pulse 72; Resp 15; Temp 97.9; Pulse Ox 100% ; Weight 63.5 kg; Height 5 ft. ap3 1 in. (154.94 cm); Pain 8/10; 14:58 Body Mass Index 26.45 (63.50 kg, 154.94 cm) ap3 MDM: 15:28 Patient medically screened. cp 15:30 Differential diagnosis: cellulitis, abscess, localized allergic reaction, insect bite. cp 15:56 Data reviewed: vital signs, nurses notes. cp 15:57 Counseling: I had a detailed discussion with the patient and/or guardian regarding: the cp historical points, exam findings, and any diagnostic results supporting the discharge/admit diagnosis, to return to the emergency department if symptoms worsen or persist or if there are any questions or concerns that arise at home. Administered Medications: 16:25 Drug: Ibuprofen 600 mg Route: PO; bautista 16:27 Follow up: Response: No adverse reaction bautista 16:25 Drug: KeFLEX (cephalexin) 500 mg Route: PO; bautista 16:26 Follow up: Response: No adverse reaction bautista 16:25 Drug: Bactrim (trimethoprim-sulfamethoxazole) (160 mg-800 mg (DS) 1 tablet Route: PO; bautista 16:26 Follow up: Response: No adverse reaction bautista 16:26 Drug: Tylenol 650 mg Route: PO; bautista 16:27 Follow up: Response: No adverse reaction bautista Disposition Summary: 10/09/21 15:57 Discharge Ordered Location: Home cp Problem: new cp Symptoms: have improved cp Condition: Stable cp Diagnosis - Cellulitis of left lower limb cp - Cellulitis of right lower limb cp Followup: cp - With: Private Physician - When: 1 - 2 days - Reason: Worsening of condition Discharge Instructions: - Discharge Summary Sheet cp - Cellulitis, Adult cp Forms: - Work release form ss - Medication Reconciliation Form cp - Thank You Letter cp - Antibiotic Education cp - Prescription Opioid Use cp Prescriptions: - Cephalexin 500 mg Oral Capsule - take 1 capsule by ORAL route every 6 hours for 10 days; 40 capsule; Refills: 0, cp Product Selection Permitted - Diclofenac Sodium 75 mg Oral tablet,delayed release (DR/EC) - take 1 tablet by ORAL route 2 times per day; 20 tablet; Refills: 0, Product cp Selection Permitted - Bactrim DS 800-160 mg Oral Tablet - take 1 tablet by ORAL route every 12 hours for 10 days; 20 tablet; Refills: 0, cp Product Selection Permitted Signatures: Rafiq Mirza, NICKI PA Tawny Dowling RN RN ap3 Marta Watt RN RN bautista Corrections: (The following items were deleted from the chart) 15:02 15:01 PMHx: carpal tunnel; ap3 ap3 15:02 15:01 PSHx: section; ap3 ap3 15:02 15:01 PSHx: Cholecystectomy; ap3 ap3
[2021-10-09] MEDS ORDERED: CEPHALEXIN 250 MG CAP ONE (16:14)
[2021-10-09] MEDS ORDERED: ACETAMINOPHEN 325 MG TABLET ONE (16:14)
[2021-10-09] MEDS ORDERED: IBUPROFEN 200 MG TAB PO ONE (16:14)
[2021-10-09] MEDS ORDERED: SMZ./TMP. 800/160 MG TABLET ONE (16:15)
[2021-10-09 16:37] VITALS: BP 112/72; TEMP 97.9; O2SAT 100
== END 2021-10-09 16:28 | disposition home or self-care (01) ==
LOC: ER 14:15
DX: L03.116 Cellulitis of left lower limb (principal); L03.115 Cellulitis of right lower limb
CPT/HCPCS: 99283

== ENCOUNTER 2023-01-19 18:44 | Emergency (ER) | payer OTHER ==
--- OUTSIDE RECORDS SUMMARY | 2023-01-19 18:48 | XMS REPORT | Continuity of Care Document ---
:1990 Author Organization [facility] t Address [address] [facility] [address] [place] [address] Care Team Providers Name Role Phone LIZY KIRK Attending Clinician Unavailable GHAZAL MCCLOUD Attending Clinician Unavailable Lab, [facility] Attending Clinician Unavailable Lizy Hdz Attending Clinician [phone] Ghazal Barry Attending Clinician Doctor Unassigned, Bernice Attending Clinician Unavailable Bandar Michelle DO Attending Clinician Payers Payer Name Policy Type Policy Number Effective Date Expiration Date Ubaldo appiah [facility] [id number] 2020 00:00:00 Problems Condition Condition Condition Status Onset Resolution Last Treating Co mments Source Name Details Category Date Date Treatment Clinician Date Contracept Contracept Disease Active 2019- U nivers marga marga 8- [place] [facility] Well woman Well woman Disease Active 2019-0 U nivers exam exam 8- ity of 00:00: [address] Contracept Contracept Disease Active 2019-0 U nivers marga marga 8- [place] of management management [place] [facility] Irregular Irregular Disease Active 2019-0 Uni vers menstrual menstrual 8- ity of cycle cycle 00:00: [address] History of History of Disease Active 2019-0 U nivers tubal tubal 8- ity of ligation ligation 00:00: [address] Encounter Encounter Disease Active 2018- Uni vers for well for well 2-26 [place] exam [place] [facility] [place] Encounter Encounter Disease Active Uni vers for for 07-18 [place] of contrace[place]pt [place] marg[place] marga 00 Medical management management Br anch , , unspecifie unspecifie d type d type History of History of Disease Active U nivers bilateral bilateral 07-18 ity of tubal tubal 00:00: [place] ligation ligation Medica l Branch Screening Screening Disease Active Uni vers for STD for STD 07-18 it[place] of (sexually ([place] transmit[place] transmit[place] 00 Me dical d disease) d disease) Br anch Breast Breast Disease Active Univers tenderness tenderness 07-18 [place] of [place] female [place] 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 12-07 ity of 00:00: [address] Allergies, Adverse Reactions, Alerts Allergy Allergy Status Severity Reaction(s) Onset Inactive Treating Comm ents Source Name Type Date Date Clinician NO KNOWN Drug Active Univers ALLERGIE Class ity of S [facility] [place] Social History Social Habit Start Date Stop Date Quantity Comments Source History of 2013-12-07 Smoker University of tobacco use 00:00:00 [facility] [place] Exposure to Not sure [place] of SARS-CoV-2 [facility] (event) [place] Tobacco use and 2020-09-11 2020-09-11 Never used Universit y of exposure 00:00:00 00:00:00 [facility] [place] Alcohol intake 2020-09-11 2020-09-11 Current drinker Unive rsity of 00:00:00 00:00:00 of alcohol [facility] (finding) [place] Alcohol Comment 2017-07-18 2017-07-18 social Universit y of 00:00:00 00:00:00 [facility] [place] Sex Assigned At [birth year] Universit y of 00:00:00 00:00:00 [facility] [place] Smoking Status Start Date Stop Date Source Former smoker 2020-09-11 00:00:00 2020-09-11 00:00:00 Universi ty of [facility] [place] Medications Ordered Filled Start Stop Current Ordering Indication Dosage Frequency Signature Comments Components Source Medication Medication Date Date Medication? Clinician (SIG) Name Name metroNIDAZO 2020- No [id number] 2000mg Take 4 Univers LE (FLAGYL) 09-01-13 tablets by i ty of 500 mg 00:00: 04:59 [place] tablet 00 :00 now for 1 Medical dose. Branch cephALEXin 2020- No [id number] 500mg Take 1 Univers (KEFLEX) 08-28- capsule by ity of 500 mg 00:00: 04:59 mouth 2 [place] capsule 00 :00 (two) Medical times Branch daily for 10 days. cephALEXin 2020- No [id number] 500mg Take 1 Univers (KEFLEX) 08-28- capsule by ity of 500 mg 00:00: 04:59 mouth 2 [place] capsule 00 :00 (two) Medical times Branch daily for 10 days. cephALEXin 2020- No [id number] 500mg Take 1 Univers (KEFLEX) 08-28- capsule by ity of 500 mg 00:00: 04:59 mouth 2 [place] capsule 00 :00 (two) Medical times Branch daily for 10 days. naproxen 2019-05 Yes [id number] 550mg Take 1 Un thiago sodium 2-07 tablet by ity of (ANAPROX 00:00: mouth 2 [place] DS) 550 mg 00 (two) Medical tablet times Branch daily with meals. methylPREDN 2019-05 Yes [id number] Take by Univers ISolone 2-07 mouth ity of (MEDROL, 00:00: SEE-INSTRU Abner as BLU,) 4 mg 00 CTIONS. Medica l tablets follow Branch package directions naproxen 2019-05 Yes [id number] 550mg Take 1 Un [place] sodium 2-07 tablet by ity of (ANAPROX 00:00: mouth 2 [place] DS) 550 mg 00 (two) Medical tablet times Branch daily with meals. methylPREDN 2019-05 Yes [id number] Take by Univers ISolone 2-07 mouth ity of (MEDROL, 00:00: SEE-INSTRU [place] as BLU,) 4 mg 00 CTIONS. Medica l tablets follow Branch package directions naproxen 2019-05- No [id number] 550mg Take 1 U nivers sodium 2-07 04-08 tablet by ity of (ANAPROX 00:00: 00:00 mouth 2 [place] DS) 550 mg 00 :00 (two) Medical tablet times Branch daily with meals. methylPREDN 2019-05- No [id number] Take by Univers ISolone 06-29- mouth ity of (MEDROL, 00:00: 00:00 [place]INSTRU [place] BLU,) 4 mg 00 :00 CTIONS. Medica l tablets follow Branch package directions naproxen 2019-05- No [id number] 550mg Take 1 U nivers sodium 06-29- tablet by ity of (ANAPROX 00:00: 00:00 mouth 2 [place] DS) 550 mg 00 :00 (two) Medical tablet times Branch daily with meals. methylPREDN 2019-05- No [id number] Take by Univers ISolone 06-29- mouth ity of (MEDROL, 00:00: 00:00 [place]INSTRU [place] BLU,) 4 mg 00 :00 CTIONS. Medica l tablets follow Branch package directions levonorgest 2018-0 Yes [id number] 1{tbl} Take 1 Univers rel-ethinyl 8-27 tablet by ity of estradiol 00:00: mouth [place] (SRONYX) 00 daily. Medical 0.1-20 Branch mg-mcg per tablet levonorgest 2019-0 Yes [id number] 1{tbl} Take 1 Univers rel-ethinyl 8-27 tablet by ity of estradiol 00:00: mouth [place] (SRONYX) 00 daily. Medical 0.1-20 Branch mg-mcg per tablet levonorgest 2019-0 Yes [id number] 1{tbl} Take 1 Univers rel-ethinyl 8-27 tablet by ity of estradiol 00:00: mouth [place] (SRONYX) 00 daily. Medical 0.1-20 Branch mg-mcg per tablet levonorgest 2019-0 Yes [id number] 1{tbl} Take 1 Univers rel-ethinyl 8-27 tablet by ity of estradiol 00:00: mouth [place] (SRONYX) 00 daily. Medical 0.1-20 Branch mg-mcg per tablet levonorgest 2019-0 Yes [id number] 1{tbl} Take 1 Univers rel-ethinyl 8-27 tablet by ity of estradiol 00:00: mouth [place] (SRONYX) 00 daily. Medical 0.1-20 Branch mg-mcg per tablet levonorgest 2020- No [id number] 1{tbl} Take 1 Univers rel-ethinyl 8-27 04-08 tablet by it y of estradiol 00:00: 00:00 mouth [place] (SRONYX) 00 :00 daily. Medical 0.1-20 Branch mg-mcg per tablet levonorgest 2020- No [id number] 1{tbl} Take 1 Univers rel-ethinyl 8-27 04-08 tablet by it y of estradiol 00:00: 00:00 mouth [place] (SRONYX) 00 :00 daily. Medical 0.1-20 Branch mg-mcg per tablet ibuprofen Yes [id number] 600mg Take 1 U nivers 600 mg 3-25 tablet by ity of tablet 00:00: mouth [place] 00 every 6 Medical (six) Branch hours as needed for Pain (scale 4-6). ondansetron Yes [id number] 4mg Take 1 Univers (ZOFRAN 3-25 tablet by ity of ODT) 4 mg 00:00: mouth [place] disintegrat 00 every 8 Medic al ing tablet (eight) Branch hours as needed for Nausea and Vomiting (N/V). benzonatate Yes [id number] 100mg Take 1 Univers 100 mg 3-25 capsule by ity of capsule 00:00: mouth 3 [place] 00 (three) Medical times Branch daily as needed for Cough. ibuprofen Yes [id number] 600mg Take 1 U nivers 600 mg 3-25 tablet by ity of tablet 00:00: mouth [place] 00 every 6 Medical (six) Branch hours as needed for Pain (scale 4-6). ondansetron Yes [id number] 4mg Take 1 Univers (ZOFRAN 3-25 tablet by ity of ODT) 4 mg 00:00: mouth [place] disintegrat 00 every 8 Medic al ing tablet (eight) Branch hours as needed for Nausea and Vomiting (N/V). benzonatate 2019-0 Yes [id number] 100mg Take 1 Univers 100 mg 3-25 capsule by ity of capsule 00:00: mouth 3 [place] 00 (three) Medical times Branch daily as needed for Cough. ibuprofen Yes [id number] 600mg Take 1 U nivers 600 mg 3-25 tablet by ity of tablet 00:00: mouth [place] 00 every 6 Medical (six) Branch hours as needed for Pain (scale 4-6). ondansetron 2019-0 Yes [id number] 4mg Take 1 Univers (ZOFRAN 3-25 tablet by ity of ODT) 4 mg 00:00: mouth [place] disintegrat 00 every 8 Medic al ing tablet (eight) Branch hours as needed for Nausea and Vomiting (N/V). benzonatate 2019-0 Yes [id number] 100mg Take 1 Univers 100 mg 3-25 capsule by ity of capsule 00:00: mouth 3 [place] 00 (three) Medical times Branch daily as needed for Cough. ibuprofen 2019-0 Yes [id number] 600mg Take 1 U nivers 600 mg 3-25 tablet by ity of tablet 00:00: mouth [place] 00 every 6 Medical (six) Branch hours as needed for Pain (scale 4-6). ondansetron 2019-0 Yes [id number] 4mg Take 1 Univers (ZOFRAN 3-25 tablet by ity of ODT) 4 mg 00:00: mouth [place] disintegrat 00 every 8 Medic al ing tablet (eight) Branch hours as needed for Nausea and Vomiting (N/V). benzonatate 2019-0 Yes [id number] 100mg Take 1 Univers 100 mg 3-25 capsule by ity of capsule 00:00: mouth 3 [place] 00 (three) Medical times Branch daily as needed for Cough. ibuprofen 2019-0 Yes [id number] 600mg Take 1 U nivers 600 mg 3-25 tablet by ity of tablet 00:00: mouth [place] 00 every 6 Medical (six) Branch hours as needed for Pain (scale 4-6). ondansetron 2019-0 Yes [id number] 4mg Take 1 Univers (ZOFRAN 3-25 tablet by ity of ODT) 4 mg 00:00: mouth [place] disintegrat 00 every 8 Medic al ing tablet (eight) Branch hours as needed for Nausea and Vomiting (N/V). benzonatate 2019-0 Yes [id number] 100mg Take 1 Univers 100 mg 3-25 capsule by ity of capsule 00:00: mouth 3 [place] 00 (three) Medical times Branch daily as needed for Cough. ibuprofen 2019-0 Yes [id number] 600mg Take 1 U nivers 600 mg 3-25 tablet by ity of tablet 00:00: mouth [place] 00 every 6 Medical (six) Branch hours as needed for Pain (scale 4-6). ondansetron 2019- Yes [id number] 4mg Take 1 Univers (ZOFRAN 3-25 tablet by ity of ODT) 4 mg 00:00: mouth [place] disintegrat 00 every 8 Medic al ing tablet (eight) Branch hours as needed for Nausea and Vomiting (N/V). benzonatate 2019- Yes [id number] 100mg Take 1 Univers 100 mg 3-25 capsule by ity of capsule 00:00: mouth 3 [place] 00 (three) Medical times Branch daily as needed for Cough. ibuprofen 2020- No [id number] 600mg Take 1 Univers 600 mg 3-25 04-08 tablet by ity of tablet 00:00: 00:00 mouth [place] 00 :00 every 6 Medical (six) Branch hours as needed for Pain (scale 4-6). ondansetron 2020- No [id number] 4mg Take 1 Univers (ZOFRAN 3-25 04-08 tablet by ity of ODT) 4 mg 00:00: 00:00 mouth [place] disintegrat 00 :00 every 8 Medic al ing tablet (eight) Branch hours as needed for Nausea and Vomiting (N/V). benzonatate 2020- No [id number] 100mg Take 1 Univers 100 mg 3-25 04-08 capsule by ity of capsule 00:00: 00:00 mouth 3 [place] 00 :00 (three) Medical times Branch daily as needed for Cough. ibuprofen 2020- No [id number] 600mg Take 1 Univers 600 mg 3-25 04-08 tablet by ity of tablet 00:00: 00:00 mouth [place] 00 :00 every 6 Medical (six) Branch hours as needed for Pain (scale 4-6). ondansetron 1- No [id number] 4mg Take 1 Univers (ZOFRAN 3-25 04-08 tablet by ity of ODT) 4 mg 00:00: 00:00 mouth [place] disintegrat 00 :00 every 8 Medic al ing tablet (eight) Branch hours as needed for Nausea and Vomiting (N/V). benzonatate 2018-2020- No [id number] 100mg Take 1 Univers 100 mg 3-25 [...] 1{tbl} Take 1 U nivers en-codeine 3-31 -08 tablet by ity of 300-30 mg 00:00: 00:00 mouth [place] tablet 00 :00 every 4 Medical (four) Branch hours as needed for Pain (scale 4-6) or Pain (scale 7-10). No known No Univers medications ity of [facility] [place] No known No Univers medications ity of [facility] [place] No known No Univers medications ity [facility] [place] No known No Univers [facility] Immunizations Ordered Filled Immunization Date Status Comments [facility] e Immunization Name Name TD 2014-05-30 Completed University of 00:00:00 [facility] [place] TDAP 2014-05-30 Completed University of 00:00:00 [facility] [place] TDAP 2014-05-30 Completed University of 00:00:00 [facility] [place] TDAP 2014-05-30 Completed University of 00:00:00 [facility] [place] TDAP 2014-05-30 Completed University of 00:00:00 [facility] [place] TDAP 2014-05-30 Completed University of 00:00:00 [facility] [place] TDAP 2014-05-30 Completed University of 00:00:00 [facility] [place] TDAP 2014-05-30 Completed University of 00:00:00 [facility] [place] TDAP 2014-05-30 Completed University of 00:00:00 [facility] [place] TDAP 2014-05-30 Completed University of 00:00:00 [facility] [place] Tdap 2014-05-30 Completed University of 00:00:00 [facility] [place] Tdap 2014-05-30 Completed University of 00:00:00 [facility] [place] Tdap 2014-05-30 Completed University of 00:00:00 [facility] [place] Influenza Virus 2014-04-04 Completed Universit y of Vaccine Quad IM 00:00:00 [place] Med ical Multi-dose 6+ MO Branch Influenza Virus 2014-04-04 Completed Universit y of Vaccine [place] IM 00:00:00 [place] Med ical Multi-dose 6+ MO Branch Influenza Virus 2014-04-04 Completed Universit y of Vaccine [place] IM 00:00:00 [place] Med ical Multi-dose 6+ MO Branch Influenza Virus 2014-04-04 Completed Universit y of Vaccine [place] IM 00:00:00 [place] Med ical Multi-dose 6+ MO Branch Influenza [...] Universit y of Vaccine [place] IM 00:00:00 [place] Med ical Multi-dose 6+ MO Branch TDAP 2012-11-06 Completed University of 00:00:00 [facility] Branch TDAP 2012-11-06 Completed University of 00:00:00 [facility] Branch TDAP 2012-11-06 Completed University of 00:00:00 [facility] Branch TDAP 2012-11-06 Completed University of 00:00:00 [facility] Branch TDAP 2012-11-06 Completed University of 00:00:00 [place] [facility] TDAP 2012-11-06 Completed University of 00:00:00 [place] [facility] TDAP 2012-11-06 Completed University of 00:00:00 [place] [facility] TDAP 2012-11-06 Completed University of 00:00:00 [place] [facility] TDAP 2012-11-06 Completed University of 00:00:00 [place] [facility] TDAP 2012-11-06 Completed University of 00:00:00 [place] [facility] Tdap 2012-11-06 Completed University of 00:00:00 [place] [facility] Tdap 2012-11-06 Completed University of 00:00:00 [facility] Branch Tdap 2012-11-06 Completed University of 00:00:00 [place] [facility] Influenza Virus 2010-05-12 Completed Universit y of Vaccine 00:00:00 [facility] [place] Influenza Virus 2010-05-12 Completed Universit y of Vaccine 00:00:00 [facility] [place] Influenza Virus 2010-05-12 Completed Universit y of Vaccine 00:00:00 [facility] [place] Influenza Virus 2010-05-12 Completed Universit y of Vaccine 00:00:00 [facility] [place] Influenza Virus 2010-05-12 Completed Universit y of Vaccine 00:00:00 [facility] [place] Influenza Virus 2010-05-12 Completed Universit y of Vaccine 00:00:00 [facility] [place] Influenza Virus 2010-05-12 Completed Universit y of Vaccine 00:00:00 [facility] [place] Influenza Virus 2010-05-12 Completed Universit y of Vaccine 00:00:00 [facility] [place] Influenza Virus 2010-05-12 Completed Universit y of Vaccine 00:00:00 [facility] [place] Influenza Virus 2010-05-12 Completed Universit y of Vaccine 00:00:00 [facility] [place] Influenza Virus 2010-05-12 Completed Universit y of Vaccine 00:00:00 [facility] [place] Influenza Virus 2010-05-12 Completed Universit y of Vaccine 00:00:00 [facility] [place] Influenza Virus 2010-05-12 Completed Universit y of Vaccine 00:00:00 [facility] [place] Rubella 2010-01-29 Completed University of 00:00:00 [facility] [place] Rubella 2010-01-29 Completed University of 00:00:00 [facility] [place] Rubella 2010-01-29 Completed University of 00:00:00 [facility] [place] Rubella 2010-01-29 Completed University of 00:00:00 [facility] [place] Rubella 2010-01-29 Completed University of 00:00:00 [facility] [place] Rubella 2010-01-29 Completed University of 00:00:00 [facility] [place] Rubella 2010-01-29 Completed University of 00:00:00 [facility] [place] Rubella 2010-01-29 Completed University of 00:00:00 [facility] [place] Rubella 2010-01-29 Completed University of 00:00:00 [facility] [place] Rubella 2010-01-29 Completed University of 00:00:00 [facility] [place] Rubella 2010-01-29 Completed University of 00:00:00 [facility] [place] Rubella 2010-01-29 Completed University of 00:00:00 [facility] [place] Rubella 2010-01-29 Completed University of 00:00:00 [facility] Branch Vital Signs Vital Name Observation Time Observation Value Comments Source Systolic blood 2020-09-11 14:10:00 113 mm[Hg] Univer sity of pressure [place] [facility] Diastolic blood 2020-09-11 14:10:00 75 mm[Hg] Unive rsity of pressure [place] [facility] Heart rate 2020-09-11 14:10:00 67 /min Universi ty of [place] [facility] Body temperature 2020-09-11 14:10:00 36.72 [place] Univ ersity of [place] [facility] Respiratory rate 2020-09-11 14:10:00 16 /min Univ ersity of [place] [facility] Body height 2020-09-11 14:10:00 154.9 cm Universi ty of [place] [facility] Body weight 2020-09-11 14:10:00 61.689 kg Universi ty of [place] [facility] BMI 2020-09-11 14:10:00 25.70 kg/m2 Universi ty of [place] [facility] Systolic blood 2020-08-28 12:52:00 118 mm[Hg] Univer sity of pressure [place] [facility] Diastolic blood 2020-08-28 12:52:00 79 mm[Hg] Unive rsity of pressure [place] [facility] Heart rate 2020-08-28 12:52:00 71 /min Universi ty of [place] [facility] Body temperature 2020-08-28 12:52:00 36.56 [place] Univ ersity of [place] [facility] Respiratory rate 2020-08-28 12:52:00 16 /min Univ ersity of [place] [facility] Body height 2020-08-28 12:52:00 157.5 cm Universi ty of [place] [facility] Body weight 2020-08-28 12:52:00 61.718 kg Universi ty of [place] [facility] BMI 2020-08-28 12:52:00 24.89 kg/m2 Universi ty of [place] [facility] Systolic blood 2020-04-28 13:55:00 114 mm[Hg] Univer sity of pressure [place] [facility] Diastolic blood 2020-04-28 13:55:00 78 mm[Hg] Unive rsity of pressure [place] [facility] Heart rate 2020-04-28 13:55:00 87 /min Universi ty of [place] [facility] Body temperature 2020-04-28 13:55:00 37.44 [place] [facility] 2020-04-28 13:55:00 17 /min [facility] ersity of [place] [facility] [place] Body weight 2020-04-28 13:55:00 63.504 kg Universi ty of [place] [facility] [place] BMI 2020-04-28 13:55:00 25.61 kg/m2 Universi ty [facility] [place] Oxygen saturation in 2020-04-28 13:55:00 100 /min [facility] Arterial blood by [facility] Pulse oximetry Branch Systolic blood 2019-01-16 18:58:00 116 mm[facility]Hg[facility] [place] Diastolic blood 2019-01-16 18:58:00 78 mm[Hg] [facility] Heart rate 2019-01-16 18:58:00 74 /min Universi ty of [facility] [place] Body temperature 2019-01-16 18:58:00 36.28 [place] [facility] Respiratory rate 2019-01-16 18:58:00 16 /min [facility] Body height 2019-01-16 18:58:00 157.5 cm Universi ty of [facility] [place] Body weight 2019-01-16 18:58:00 62.596 kg Universi ty [facility] [place] BMI 2019-01-16 18:58:00 25.24 kg/m2 [facility] [place] Procedures Procedure Date / Time Performed Performing Clinician [facility] e POCT TEST 2020-09-11 14:10:00 [facility]al [facility] CONSENT/REFUSAL FOR 2020-08-28 12:30:51 Doctor Unassigned, [facility] AND Name Medical Branch TREATMENT ASSIGNMENT OF BENEFITS 2020-08-28 12:30:34 Doctor Unassigned, No [facility] Branch NOTICE OF PRIVACY 2020-04-28 13:46:31 Doctor Unassigned, No [facility] Medical Branch CONSENT/REFUSAL FOR 2020-04-28 13:46:21 Doctor Unassigned, No [facility] DIAGNOSIS AND Name Medical Branch TREATMENT POCT TEST 2019-01-16 19:00:00 Lizy Kirk [facility] ASSIGNMENT OF BENEFITS 2019-01-16 18:37:40 Doctor Unassigned, No [facility] Encounters Start End Encounter Admission Attending Care Care Encounter Source Date/Time Date/Time Type Type Clinicians Facility Department ID 2021-03-21 Emergency [facility] [id number] Univers [facility] 2020-12-08 2020-12-08 Outpatient R [facility] [id number] Univers 13:15:00 13:15:00 ity [facility] [place] 2020-11-19 2020-11-19 Outpatient R [facility] [id number] Univers 10:30:00 10:30:00 ity [facility] [place] 2020-10-24 2020-10-24 Outpatient R REAGAN [facility] [id number] Univers 08:30:00 08:30:00 LIZY daley o f [facility] [place] 2020-09-30 2020-09-30 [facility] [id number] Univers 07:45:00 07:45:00 GHAZAL daley [facility] [place] 2020-09-25 2020-09-25 Office Nurse Lab, [facility] [id number] 07:46:58 08:17:24 Visit Sheyla PRIMARY TEACHING ASSISTANT [id number] REGIONAL [id number] MATERNAL [id number] & CHILD [address] [place] [address] 2020-09-25 2020-09-25 [facility] [id number] Univers 07:46:58 08:17:24 Visit Lizy Kirk PRIMARY TEACHING ASSISTANT [id number] [id number] Abner as MATERNAL [id number] Med ical & CHILD [address] [place] [address] 2020-09-25 2020-09-25 Outpatient R [facility] [id number] Univers 08:00:00 08:00:00 [facility] 2020-09-11 2020-09-11 [facility] [id number] Univers 08:47:04 09:23:19 Visit Ghazal Medina PRIMARY TEACHING ASSISTANT [id number] it y [facility] [id number] Abner as MATERNAL [id number] [facility] ical & CHILD [address] [place] [address] 2020-09-11 2020-09-11 [facility] [id number] Univers 09:00:00 09:00:00 GHAZAL daley [facility] [place] 2020-09-01 2020-09-01 Telephone [facility] [id number] Univers 00:00:00 00:00:00 Ghazal Adam PRIMARY TEACHING ASSISTANT [id number] it y of [facility] [id number] Abner as MATERNAL [id number] [facility] ical & CHILD [address] [place] [address] 2020-08-28 2020-08-28 Office [facility] [id number] Univers 07:46:10 08:45:35 Visit Ghazal Medina PRIMARY TEACHING ASSISTANT [id number] it y of [facility] [id number] Abner as MATERNAL [id number] [facility] & CHILD [address] [place] [address] 2020-08-28 2020-08-28 [facility] [id number] Univers 07:45:00 07:45:00 GHAZAL d[facility] 2020-08-28 2020-08-28 Orders Doctor NICOLE [id number] Univers 00:00:00 00:00:00 Only Unassigned, CHILANGO [id number] ity of [place]ice [facility] [id number] Abner as [phone] [facility] [address] 2020-04-28 2020-04-28 Emergency [facility] [id number] Univers 07:56:00 08:10:00 Bandar Diamond [id number] i [id number] [phone] [facility] [address] 2020-04-28 2020-04-28 Orders Doctor NICOLE [id number] Univers 00:00:00 00:00:00 Only Unassigned, CHILANGO [id number] ity of [place] [facility] [id number] Abner as [phone] [address] 2019-01-16 2019-01-16 Office ADELE Kirk [id number] Univers 13:40:36 14:50:57 Visit Lizy Rowe PRIMARY TEACHING ASSISTANT [id number] ity of [facility] [id number] Abner as MATERNAL [phone] Med ical & CHILD [address] [place] [address] 2019-01-16 2019-01-16 Orders Doctor COREY [id number] Univers 00:00:00 00:00:00 Only Unassigned, CHILANGO [id number] ity of [place] [facility] [id number] Abner as [phone] [address] Results Test Description Test Time Test Comments Results Result Comments Source POCT TEST 2020-09-11 14:11:00 Test Item Value Reference Range Interpretation Comme nts POCT PREG (test code = 1605) Negative On board controls acceptable with C Line (test code = 3574) Yes POCT PREG LOT # (test code = 3575) POCT PREG TEST DATE (test code = 3576) [id number] 14:11:00 Test Item Value Reference Range Interpretation Comments POCT PREG (test code = 1605) Negative On board controls acceptable with C Yes Line (test code = 3574) POCT PREG LOT # (test code = 3575) POCT PREG TEST DATE (test code = 3576) [facility] [id number] 19:00:00 Test Item Value Reference Range Interpretation Comments POCT PREG (test code = 1605) Negative On board controls acceptable with C Yes Line (test code = 3574) POCT PREG LOT # (test code = 3575) POCT PREG TEST DATE (test code = 3576) [facility] [id number] 19:00:00 Test Item Value Reference Range Interpretation Comments POCT PREG (test code = 1605) Negative On board controls acceptable with C Yes Line (test code = 3574) POCT PREG LOT # (test code = 3575) POCT PREG TEST DATE (test code = 3576) [facility]
[2023-01-19] MEDS ORDERED: LIDOCAINE 1% MPF 5 ML VIAL ONE ×2 (19:33→19:34)
[2023-01-19] MEDS ORDERED: CEFTRIAXONE 1000 MG/VIAL ONE (19:34)
--- NOTE | 2023-01-19 20:19 | ER ---
Nurse's Notes [facility] Name: Ember Clark Age: 32 yrs Sex: Female : 1990 Arrival Date: 01/19/2023 Time: 18:44 Bed 17 Private MD: Diagnosis: Abscess of Bartholin's gland Presentation: 01/19 18:50 Chief complaint: Patient states: she has a "bump near her private area that is getting ap3 bigger and more painful". patient reports first feeling it approx 2 days ago. Coronavirus screen: At this time, the client does not indicate any symptoms associated with coronavirus-19. Ebola Screen: No symptoms or risks identified at this time. Initial Sepsis Screen: Does the patient meet any 2 criteria? No. Patient's initial sepsis screen is negative. Does the patient have a suspected source of infection? No. Patient's initial sepsis screen is negative. Risk Assessment: Do you want to hurt yourself or someone else? Patient reports no desire to harm self or others. Onset of symptoms was January 17, 2023. 18:50 Method Of Arrival: Ambulatory ap3 18:50 Acuity: MIKKI 3 ap3 Triage Assessment: 18:52 General: Appears in no apparent distress. Behavior is calm, cooperative, appropriate ap3 for age. Pain: Complains of pain in left labia majora Pain currently is 9 out of 10 on a pain scale. Neuro: Level of Consciousness is awake, alert, obeys commands, Oriented to person, place, time, situation. Cardiovascular: Patient's skin is warm and dry. Respiratory: Airway is patent Respiratory effort is even, unlabored, Respiratory pattern is regular, symmetrical. Historical: - Allergies: 18:51 No Known Allergies; ap3 - Home Meds: 18:51 None [Active]; ap3 - PMHx: 18:51 Anemia; ap3 - PSHx: 18:51 section; ap3 - Immunization history:: Client reports receiving the 2nd dose of the Covid vaccine. - Social history:: Smoking status: Reported history of juuling and/or vaping. Patient uses alcohol, occasionally. Screenin:52 [facility] ED Fall Risk Assessment (Adult) History of falling in the last 3 months, ap3 including since admission No falls in past 3 months (0 pts). Abuse screen: Denies threats or abuse. Nutritional screening: No deficits noted. Tuberculosis screening: No symptoms or risk factors identified. Assessment: 19:17 General: Appears in no apparent distress. comfortable, Behavior is calm, cooperative. iw Pain: Complains of pain in left labia majora and groin. Neuro: Level of Consciousness is awake, alert, obeys commands, Oriented to person, place, time, situation, Moves all extremities. Full function. Cardiovascular: Patient's skin is warm and dry. Respiratory: Respiratory effort is even, unlabored, Respiratory pattern is regular, symmetrical. : on labia abscess. Derm: Skin is intact, is healthy with good turgor. Musculoskeletal: Capillary refill < 3 seconds. Vital Signs: 18:50 BP 130 / 96; Pulse 96; Resp 17; Temp 98.6; Pulse Ox 98% ; Weight 65.77 kg; Pain 9/10; ap3 18:50 Pain Scale: Adult ap3 ED Course: 18:45 Patient arrived in ED. rg4 18:49 Desirae Angelo [facility]-C [facility] kb 18:49 Ru Parekh MD is Attending Physician. kb 18:51 Triage completed. ap3 18:52 Patient has correct armband on for positive identification. Placed in gown. Bed in low ap3 position. Call light in reach. Side rails up X 1. 18:52 Arm band placed on left wrist. ap3 19:12 Jennie Fong, RN is Primary Nurse. iw 19:18 Provided Education on: I\\T\\D . iw 20:30 Assist provider with I \\T\\ D: of an abscess on left Bartholin's gland Set up I\\T\\D tray. iw Performed by Desirae URIARTE Patient tolerated poorly. Patient did not have IV access during this emergency room visit. Administered Medications: 20:10 Drug: Lidocaine Infiltration (1 %) 1 vials Volume: 5 ml; Route: Infiltration; iw 20:26 Drug: Rocephin (cefTRIAXone) IM 1 grams Route: IM; Site: right vastus lateralis; iw 20:35 Follow up: Response: No adverse reaction iw 20:26 Drug: Hydrocodone-Acetaminophen PO (7.5 mg-325 mg) 1 tabs Route: PO; iw 20:35 Follow up: Response: No adverse reaction iw Medication: 19:18 VIS not applicable for this client. iw Outcome: 20:18 Discharge ordered by . kya 20:51 Discharged to home ambulatory. iw 20:51 Condition: good 20:51 Discharge instructions given to patient, Instructed on discharge instructions, follow up and referral plans. Demonstrated understanding of instructions, follow-up care. 20:52 Patient left the ED. iw Signatures: Desirae Angelo, CHEF HEAD-C CHEF HEAD-Ckb Jennie Fong RN RN Ruth Estrada rg4 Tawny Andrews RN RN ap3
--- NOTE | 2023-01-19 20:19 | EDPHYS ---
Physician Documentation [facility] Name: Ember Clark Age: 32 yrs Sex: Female : 1990 Arrival Date: 01/19/2023 Time: 18:44 Bed 17 Private MD: ED Physician Ru Parekh HPI: 01/19 20:36 This 32 yrs old Black Female presents to ER via Ambulatory with complaints of Vaginal kb Abscess. 20:36 the patient presents with a swollen area of the left labia majora. Description: kb erythematous, swollen. Onset: The symptoms/episode began/occurred 2 day(s) ago. Possible cause(s): unknown. Associated signs and symptoms: Pertinent positives: erythema, swelling. Modifying factors: the symptoms are alleviated by nothing, the symptoms are aggravated by movement, walking, pressure, sitting, squeezing the lesion and expressing the contents, touching. Severity of symptoms: At their worst the symptoms were moderate, in the emergency department the symptoms are unchanged. The patient has not experienced similar symptoms in the past. The patient has not recently seen a physician. Historical: - Allergies: 18:51 No Known Allergies; ap3 - Home Meds: 18:51 None [Active]; ap3 - PMHx: 18:51 Anemia; ap3 - PSHx: 18:51 section; ap3 - Immunization history:: Client reports receiving the 2nd dose of the Covid vaccine. - Social history:: Smoking status: Reported history of juuling and/or vaping. Patient uses alcohol, occasionally. ROS: 20:35 Constitutional: Negative for fever, chills, and weight loss. kb 20:35 Skin: Positive for abscess, of the left labia majora. 20:35 All other systems are negative. Exam: 20:35 Constitutional: This is a well developed, well nourished patient who is awake, alert, kb and in no acute distress. Head/Face: Normocephalic, atraumatic. ENT: Moist Mucous membranes Cardiovascular: Regular rate and rhythm with a normal S1 and S2. No gallops, murmurs, or rubs. No pulse deficits. Respiratory: Respirations even and unlabored. No increased work of breathing. Talking in full sentences Abdomen/GI: Soft, non-tender. No distention MS/ Extremity: Pulses equal, no cyanosis. Neurovascular intact. Full, normal range of motion. Neuro: Awake and alert, GCS 15, oriented to person, place, time, and situation. Moves all extremities. Normal gait. 20:35 : Pelvic Exam: External exam: Bartholin's cyst present, erythema is noted, the nurse was present for the exam. Vital Signs: 18:50 BP 130 / 96; Pulse 96; Resp 17; Temp 98.6; Pulse Ox 98% ; Weight 65.77 kg; Pain 9/10; ap3 18:50 Pain Scale: Adult ap3 Procedures: 20:35 I \T\ D: Incision and drainage was performed for an abscess of the left Bartholin's kb gland. Prepped with Betadine, Anesthetized with 1 ml's 1% Lidocaine. Incised with #11 blade. Drained moderate amount purulent fluid. Dressing: sterile 4x4 gauze, the patient tolerated the procedure well. MDM: 18:49 Patient medically screened. kb 20:17 Differential diagnosis: abscess, bartholins cyst. Data reviewed: vital signs, nurses kb notes. Counseling: I had a detailed discussion with the patient and/or guardian regarding the historical points, exam findings, and any diagnostic results supporting the discharge/admit diagnosis, the need for outpatient follow up, an OB/Gyne specialist, to return to the emergency department if symptoms worsen or persist or if there are any questions or concerns that arise at home. 01/19 19:18 Order name: I\T\D Setup; Complete Time: 19:36 kb Administered Medications: 20:10 Drug: Lidocaine Infiltration (1 %) 1 vials Volume: 5 ml; Route: Infiltration; iw 20:26 Drug: Rocephin (cefTRIAXone) IM 1 grams Route: IM; Site: right vastus lateralis; iw 20:35 Follow up: Response: No adverse reaction iw 20:26 Drug: Hydrocodone-Acetaminophen PO (7.5 mg-325 mg) 1 tabs Route: PO; iw 20:35 Follow up: Response: No adverse reaction iw Disposition Summary: 01/19/23 20:18 Discharge Ordered Location: Home kb Condition: Stable kb Diagnosis - Abscess of Bartholin's gland kb Followup: kb - With: Emergency Department - When: As needed - Reason: Worsening of condition Followup: kb - With: Private Physician - When: 2 - 3 days - Reason: Recheck today's complaints, Continuance of care, Re-evaluation by your physician Discharge Instructions: - Discharge Summary Sheet kb - Bartholin's Cyst, [id number] kb - Bartholin's Cyst Incision and Drainage kb Forms: - Medication Reconciliation Form kb - Thank You Letter kb - Antibiotic Education kb - Prescription Opioid Use kb - Patient Portal Instructions kb - Leadership Thank You Letter kb - Work release form iw Prescriptions: - Doxycycline Hyclate 100 mg Oral Tablet - take 1 tablet by ORAL route every 12 hours; 20 tablet; Refills: 0, Product kb Selection Permitted Signatures: Desirae Angelo, KATELYNN-C KATELYNN-Jennie Rod, RN RN iw Tawny Andrews RN RN ap3
[2023-01-19] MEDS ORDERED: HYDROCODONE/APAP 7.5/325 MG TAB ONE (20:35)
[2023-01-19 20:59] VITALS: BP 130/96; TEMP 98.6; O2SAT 98
== END 2023-01-19 20:52 | disposition home or self-care (01) ==
LOC: ER 18:44
PROC: 0H9AXZZ Drainage of Inguinal Skin, External Approach (ICD-10-PCS; principal; 2023-01-19)
DX: N75.1 Abscess of Bartholin's gland (principal)
CPT/HCPCS: 56420; J2001 ×2; J0696

== ENCOUNTER 2024-07-19 08:09 | Emergency (ER) | payer OTHER ==
--- OUTSIDE RECORDS SUMMARY | 2024-07-19 08:14 | XMS REPORT | Continuity of Care Document ---
Author Name Unknown Address [address] [facility] [address] [place] [address] [facility] Address [address] [facility] [address] [place] [address] Care Team Providers Care Application Architect Name Role Phone SHERIE HENDERSON Primary Care Physician JERE Corona Attending Clinician Unavailable SHERIE HENDERSON Attending Clinician Jere Vasquez Attending Clinician [phone] LIZY LUZ Attending Clinician Unavail able JOSÉ MANUEL SOLIS Attending Clinician Unavailable Visit, Sheyla Nurse Attending Clinician Sherie Ureña CNM Attending Clinician [phone] Doctor Unassigned, [place] Attending Clinician U navailable [email or web address]_Gabrielle_S Attending Clinician UnavailGHAZAL Hoover Attending Clinician Unavailabl e Lab, Sheyla Attending Clinician Unavailable Lizy Hdz Attending Clinician + Ghazal Barry Attending Clinician [phone] Bandar Michelle DO Attending Clinician [phone] [email or web address]_Gabrielle_S Admitting Clinician Duran hogue Payers Payer Name Policy Type Policy Number Effective Date Expirati on Date Source [facility] [id number] 00:00:00 [employer] [facility] [id number] 2023 00:00:00 [employer] [id number] 2023 00:00:00 Problems Condition Name Condition Details Condition Category Status Onset Date Resolution Date Last Treatment Date Treating Clinician Comments Source Need for HPV vaccinatio n Need for HPV vaccinatio n Disease Active 06-02 00:00: 00 [facility] Tobacco use disorder Tobacco use disorder Disease Active 06-02 00:00: 00 [facility] Menorrhagi a with irregular cycle Menorrhagi a with irregular cycle Disease Active 06-02 00:00: 00 [facility] Dysmenorrh ea Dysmenorrh ea Disease Active 06-02 00:00: 00 [facility] Trichomona l vulvovagin itis Trichomona l vulvovagin itis Disease Active 09-26 00:00: 00 [facility] Well woman exam Well woman exam Disease Active 01-16 00:00: 00 [facility] Contracept marga management Contracept marga management Disease Active 01-16 00:00: 00 [facility] History of tubal ligation History of tubal ligation Disease Active 01-16 00:00: 00 [facility] Encounter for well woman exam Encounter for well woman exam Disease Active 07-18 00:00: 00 [facility] Encounter for contracept marga management , unspecifie d type Encounter for contracept marga management , unspecifie d type Disease Active 07-18 00:00: 00 [facility] History of trichomoni asis History of trichomoni asis Disease Resolve d 09-26 00:00: 00 2023-06-02 00:00:00 2023-06-02 10:52:08 [facility] Irregular menstrual cycle Irregular menstrual cycle Disease Resolve d 01-16 00:00: 00 2023-06-02 00:00:00 2023-06-02 10:51:46 [facility] Mood disorder Mood disorder Disease Resolve d 18 00:00: 00 2023-06-02 00:00:00 2023-06-02 10:53:08 [facility] Contracept marga management Contracept marga management Disease Resolve d 827 00:00: 00 2020-08-28 00:00:00 2020-08-28 07:55:42 [facility] Breast tenderness in female Breast tenderness in female Disease Resolve d 07-18 00:00: 00 2020-08-28 00:00:00 2020-08-28 07:55:39 [facility] History of bilateral tubal ligation History of bilateral tubal ligation Disease Resolve d 07-18 00:00: 00 2019-01-16 00:00:00 2019-01-16 14:36:45 [facility] Screening for STD (sexually transmitte d disease) Screening for STD (sexually transmitte d disease) Disease Resolve d 07-18 00:00: 00 2019-01-16 00:00:00 2019-01-16 14:36:48 [facility] delivery delivered delivery delivered Disease Resolve d 19 00:00: 00 2017-07-18 00:00:00 2021-12-06 00:34:38 [facility] Anxiety in , antepartum , unspecifie d trimester Anxiety in , antepartum , unspecifie d trimester Disease Resolve d 12-14 00:00: 00 2017-07-18 00:00:00 2017-07-18 15:29:49 [facility] Encounter for sterilizat ion Encounter for sterilizat ion Disease Resolve d 12-14 00:00: 00 2017-07-18 00:00:00 2021-12-06 00:31:22 [facility] Scheduled Scheduled Disease Resolve d 07-22 00:00: 00 2014-08-27 00:00:00 2014-08-27 12:37:04 [facility] History of delivery, currently , unspecifie d trimester History of delivery, currently , unspecifie d trimester Disease Resolve d 12-14 00:00: 00 2014-08-27 00:00:00 2014-08-27 12:37:04 [facility] Immune to varicella Immune to varicella Disease Resolve d 12-17 00:00: 00 2014-07-22 00:00:00 2014-07-22 06:40:04 [facility] High-risk , first trimester [V23.9] High-risk , first trimester [V23.9] Disease Resolve d 12-14 00:00: 00 2014-07-22 00:00:00 2014-07-22 06:40:02 [facility] Pelvic pain complicati ng Pelvic pain complicati ng Disease Resolve d 12-18 00:00: 00 2014-06-13 00:00:00 2014-06-13 09:46:46 [facility] Abdominal pain, generalize d Abdominal pain, generalize d Disease Resolve d 12-17 00:00: 00 2014-06-13 00:00:00 2014-06-13 09:46:52 [facility] Irregular menstrual cycle Irregular menstrual cycle Disease Resolve d 12-14 00:00: 00 2014-06-13 00:00:00 2021-12-06 00:31:22 [facility] Unsure of LMP (last menstrual period) as reason for ultrasound scan Unsure of LMP (last menstrual period) as reason for ultrasound scan Disease Resolve d 12-14 00:00: 00 2014-06-13 00:00:00 2014-06-13 09:46:44 [facility] Rubella immune Rubella immune Disease Resolve d 12-07 00:00: 00 2014-06-13 00:00:00 2014-06-13 09:57:13 [facility] Depo-Prove ra contracept marga status Depo-Prove ra contracept marga status Disease Resolve d 12-07 00:00: 00 2013-12-14 00:00:00 2013-12-14 13:44:15 [facility] Encounter for routine gynecologi ankush examinatio n Encounter for routine gynecologi ankush examinatio n Disease Resolve d 12-07 00:00: 00 2013-12-14 00:00:00 2021-12-06 00:25:32 [facility] Bacterial vaginosis Bacterial vaginosis Disease Resolve d 12-07 00:00: 00 2013-12-14 00:00:00 2013-12-14 13:44:11 [facility] General counseling for initiation of other contracept marga measures General counseling for initiation of other contracept marga measures Disease Resolve d 08-01 00:00: 00 2012-12-07 00:00:00 2012-12-07 09:27:53 [facility] delivery delivered delivery delivered Disease Resolve d 10-10 00:00: 00 2012-12-07 00:00:00 2021-12-06 00:15:09 [facility] Anemia of mother during , delivered Anemia of mother during , delivered Disease Resolve d 10-10 00:00: 00 2012-12-07 00:00:00 2021-12-06 00:15:09 [facility] delivery delivered delivery delivered Disease Resolve d 2006-05 00:00: 00 2008-10-10 00:00:00 2021-12-06 00:11:53 [facility] Other specified and placental problems affecting management of mother, antepartum Other specified and placental problems affecting management of mother, antepartum Disease Resolve d 2006-05 0 00:00: 00 2008-10-10 00:00:00 2008-10-10 19:47:23 [facility] Fever and other physiologi c disturbanc es of temperatur e regulation Fever and other physiologi c disturbanc es of temperatur e regulation Disease Resolve d 2006-05 004 00:00: 00 2008-10-10 00:00:00 2021-12-06 00:11:52 [facility] 33-34 completed weeks of gestation( 765.27) 33-34 completed weeks of gestation( 765.27) Disease Resolve d 2006-05 004 00:00: 00 2007-02-27 00:00:00 2007-02-27 00:29:36 [facility] Allergies, Adverse Reactions, Alerts Allergy Name Allergy Type Status Severity Reaction(s) Onset Date Inactive Date Treating Clinician Comments Source NO KNOWN ALLERGIE S Drug Class Active [facility] Social History Social Habit Start Date Stop Date Quantity Comments Source History of tobacco use 2013-12-07 00:00:00 Cigarette Smoker [facility] Exposure to SARS-CoV-2 (event) Not sure [facility] Tobacco use and exposure 2024-03-16 00:00:00 2024-03-16 00:00:00 Smokeless tobacco non-user [facility] Alcoholic beverage intake 2024-03-16 00:00:00 2024-03-16 00:00:00 Current drinker of alcohol (finding) [facility] History of Social function 2023-08-25 00:00:00 2023-08-25 00:00:00 [facility] Alcohol intake 2023-06-02 00:00:00 2023-06-02 00:00:00 Current drinker of alcohol (finding) [facility] Alcohol Comment 2017-07-18 00:00:00 2017-07-18 00:00:00 social [facility] Sex assigned at 1990 00:00:00 1990 00:00:00 [facility] Smoking Status Start Date Stop Date Source Occasional tobacco smoker 2024-03-16 00:00:00 [facility] Ex-smoker 2013-12-14 00:00:00 2013-12-14 00:00:00 [facility] Medications Ordered Medication Name Filled Medication Name Start Date Stop Date Current Medication? Ordering Clinician Indication Dosage Frequency Signature (SIG) Comments Components Source Iron Fum & P-FA-Vit B & C No.9 (INTEGRA PLUS) 125 mg iron- 1 mg Cap 06-03 00:00: 00 Yes [id number] 1{capsu le} Take 1 capsule by mouth in the morning. [facility] medroxyPROG ESTERone (DEPO-PROVE RA) syringe 150 mg 06-02 17:15: 00 07-26 17:14 :00 No [id number] 150mg 150 mg, Intramuscu lar, [id number], 5 doses, First dose on Rashida 06/02/23 at 1115, Last dose on Rashida 05/03/24 at 1115, Routine [facility] metroNIDAZO LE (FLAGYL) 500 mg tablet 09-01 00:00: 00 09-02 04:59 :00 No [id number] 2000mg Take 4 tablets by mouth once now for 1 dose. [facility] cephALEXin (KEFLEX) 500 mg capsule 08-28 00:00: 00 09-08 04:59 :00 No [id number] 500mg Take 1 capsule by mouth 2 (two) times daily for 10 days. [facility] naproxen sodium (ANAPROX DS) 550 mg tablet 2019-05 00:00: 00 08-28 00:00 :00 No [id number] 550mg Take 1 tablet by mouth 2 (two) times daily with meals. [facility] methylPREDN ISolone (MEDROL, BLU,) 4 mg tablets 2019-05 00:00: 08-28 00:00 :00 No [id number] Take by mouth SEE-INSTRU CTIONS. follow package directions [facility] levonorgest rel-ethinyl estradiol (SRONYX) 0.1-20 mg-mcg per tablet 8-27 00:00: 00 08-28 00:00 :00 No [id number] 1{tbl} Take 1 tablet by mouth daily. [facility] ibuprofen 600 mg tablet 08-14 00:00: 08-28 00:00 :00 No [id number] 600mg Take 1 tablet by mouth every 6 (six) hours as needed for Pain (scale 4-6). [facility] ondansetron (ZOFRAN ODT) 4 mg disintegrat ing tablet 08-14 00:00: 00 08-28 00:00 :00 No [id number] 4mg Take 1 tablet by mouth every 8 (eight) hours as needed for Nausea and Vomiting (N/V). [facility] benzonatate 100 mg capsule 08-14 00:00: 00 08-28 00:00 :00 No [id number] 100mg Take 1 capsule by mouth 3 (three) times daily as needed for Cough. [facility] acetaminoph en-codeine 300-30 mg tablet 08-20 00:00: 00 08-28 00:00 :00 No 1{tbl} Take 1 tablet by mouth every 4 (four) hours as needed for Pain (scale 4-6) or Pain (scale 7-10). [facility] No known medications No Un thiago [facility] No known medications No Un thiago [facility] Immunizations Ordered Immunization Name Filled Immunization Name Date Status Comments Source HPV9 2023-12-09 00:00:00 Completed [facility] HPV9 2023-08-25 00:00:00 Completed [facility] Influenza Virus Vaccine Quad .5 mL IM 6+ MO (FLUZONE/FLULAVAL/F LUARIX) 2023-06-02 00:00:00 Completed HPV9 2023-06-02 00:00:00 Completed TDAP 2014-05-30 00:00:00 Completed [facility] TDAP 2014-05-30 00:00:00 Completed [facility] TDAP 2014-05-30 00:00:00 Completed [facility] TDAP 2014-05-30 00:00:00 Completed [facility] TDAP 2014-05-30 00:00:00 Completed [facility] TDAP 2014-05-30 00:00:00 Completed [facility] TDAP 2014-05-30 00:00:00 Completed [facility] TDAP 2014-05-30 00:00:00 Completed Tdap 2014-05-30 00:00:00 Completed [facility] Tdap 2014-05-30 00:00:00 Completed [facility] Influenza Virus Vaccine Quad IM Multi-dose 6+ MO 2014-04-04 00:00:00 Completed [facility] Influenza Virus Vaccine Quad IM Multi-dose 6+ MO 2014-04-04 00:00:00 Completed [facility] Influenza Virus Vaccine Quad IM Multi-dose 6+ MO 2014-04-04 00:00:00 Completed [facility] Influenza Virus Vaccine Quad IM Multi-dose 6+ MO 2014-04-04 00:00:00 Completed [facility] Influenza Virus Vaccine Quad IM Multi-dose 6+ MO 2014-04-04 00:00:00 Completed [facility] Influenza Virus Vaccine Quad IM Multi-dose 6+ MO 2014-04-04 00:00:00 Completed [facility] Influenza Virus Vaccine Quad IM Multi-dose 6+ MO 2014-04-04 00:00:00 Completed [facility] Influenza Virus Vaccine Quad IM Multi-dose 6+ MO 2014-04-04 00:00:00 Completed [facility] Influenza Virus Vaccine Quad IM Multi-dose 6+ MO 2014-04-04 00:00:00 Completed Influenza Virus Vaccine Quad IM Multi-dose 6+ MO 2014-04-04 00:00:00 Completed [facility] TDAP 2012-11-06 00:00:00 Completed [facility] TDAP 2012-11-06 00:00:00 Completed [facility] TDAP 2012-11-06 00:00:00 Completed [facility] TDAP 2012-11-06 00:00:00 Completed [facility] TDAP 2012-11-06 00:00:00 Completed [facility] TDAP 2012-11-06 00:00:00 Completed [facility] TDAP 2012-11-06 00:00:00 Completed [facility] Tdap 2012-11-06 00:00:00 Completed [facility] TDAP 2012-11-06 00:00:00 Completed [facility] Tdap 2012-11-06 00:00:00 Completed [facility] Influenza Virus Vaccine 2010-05-12 00:00:00 Completed [facility] Influenza Virus Vaccine 2010-05-12 00:00:00 Completed [facility] Influenza Virus Vaccine 2010-05-12 00:00:00 Completed [facility] Influenza Virus Vaccine 2010-05-12 00:00:00 Completed [facility] Influenza Virus Vaccine 2010-05-12 00:00:00 Completed [facility] Influenza Virus Vaccine 2010-05-12 00:00:00 Completed [facility] Influenza Virus Vaccine 2010-05-12 00:00:00 Completed [facility] Influenza Virus Vaccine 2010-05-12 00:00:00 Completed [facility] Influenza Virus Vaccine 2010-05-12 00:00:00 Completed [facility] Influenza Virus Vaccine 2010-05-12 00:00:00 Completed [facility] Rubella 2010-01-29 00:00:00 Completed [facility] Rubella 2010-01-29 00:00:00 Completed [facility] Rubella 2010-01-29 00:00:00 Completed [facility] Rubella 2010-01-29 00:00:00 Completed [facility] Rubella 2010-01-29 00:00:00 Completed [facility] Rubella 2010-01-29 00:00:00 Completed [facility] Rubella 2010-01-29 00:00:00 Completed [facility] Rubella 2010-01-29 00:00:00 Completed [facility] Rubella 2010-01-29 00:00:00 Completed [facility] Rubella 2010-01-29 00:00:00 Completed [facility] Influenza Virus Vaccine Unknown Completed [facility] TDAP Unknown Completed [facility] Rubella Unknown Completed [facility] Influenza Virus Vaccine Quad IM Multi-dose 6+ MO Unknown Completed [facility] Influenza Virus Vaccine Unknown Completed [facility] TDAP Unknown Completed [facility] Rubella Unknown Completed [facility] Influenza Virus Vaccine Quad IM Multi-dose 6+ MO Unknown Completed [facility] Influenza Virus Vaccine Quad .5 mL IM 6+ MO (FLUZONE/FLULAVAL/F LUARIX) Unknown Completed [facility] HPV9 Unknown Completed [facility] Influenza Virus Vaccine Unknown Completed [facility] Rubella Unknown Completed [facility] Influenza Virus Vaccine Quad IM Multi-dose 6+ MO Unknown Completed [facility] Influenza Virus Vaccine Quad .5 mL IM 6+ MO (FLUZONE/FLULAVAL/F LUARIX) Unknown Completed [facility] HPV9 Unknown Completed [facility] TDAP Unknown Completed [facility] Influenza Virus Vaccine Unknown Completed [facility] TDAP Unknown Completed [facility] Rubella Unknown Completed [facility] Influenza Virus Vaccine Quad IM Multi-dose 6+ MO Unknown Completed [facility] Influenza Virus Vaccine Quad .5 mL IM 6+ MO (FLUZONE/FLULAVAL/F LUARIX) Unknown Completed [facility] HPV9 Unknown Completed [facility] Influenza Virus Vaccine Unknown Completed [facility] TDAP Unknown Completed [facility] Rubella Unknown Completed [facility] Influenza Virus Vaccine Quad IM Multi-dose 6+ MO Unknown Completed [facility] Influenza Virus Vaccine Quad .5 mL IM 6+ MO (FLUZONE/FLULAVAL/F LUARIX) Unknown Completed [facility] HPV9 Unknown Completed [facility] Influenza Virus Vaccine Unknown Completed [facility] TDAP Unknown Completed [facility] Rubella Unknown Completed [facility] Influenza Virus Vaccine Quad IM Multi-dose 6+ MO Unknown Completed [facility] Influenza Virus Vaccine Quad .5 mL IM 6+ MO (FLUZONE/FLULAVAL/F LUARIX) Unknown Completed [facility] HPV9 Unknown Completed [facility] Influenza Virus Vaccine Unknown Completed [facility] TDAP Unknown Completed [facility] Rubella Unknown Completed [facility] Influenza Virus Vaccine Quad IM Multi-dose 6+ MO Unknown Completed [facility] Influenza Virus Vaccine Quad .5 mL IM 6+ MO (FLUZONE/FLULAVAL/F LUARIX) Unknown Completed [facility] HPV9 Unknown Completed [facility] Vital Signs Vital Name Observation Time Observation Value Comments S ource Systolic blood pressure 2024-03-16 14:09:00 125 mm[Hg] [facility] Diastolic blood pressure 2024-03-16 14:09:00 86 mm[Hg] [facility] Heart rate 2024-03-16 14:09:00 65 /min [facility] Body temperature 2024-03-16 14:09:00 35.39 Rosetta [facility] Respiratory rate 2024-03-16 14:09:00 18 /min [facility] Body height 2024-03-16 14:09:00 154.9 cm [facility] Body weight 2024-03-16 14:09:00 78.382 kg [facility] BMI 2024-03-16 14:09:00 32.65 kg/m2 [facility] Systolic blood pressure 2023-12-09 12:03:00 126 mm[Hg] [facility] Diastolic blood pressure 2023-12-09 12:03:00 86 mm[Hg] [facility] Heart rate 2023-12-09 12:03:00 93 /min [facility] Body temperature 2023-12-09 12:03:00 36.44 [place] [facility] Respiratory rate 2023-12-09 12:03:00 18 /min [facility] Body height 2023-12-09 12:03:00 154.9 cm [facility] Body weight 2023-12-09 12:03:00 76.204 kg [facility] BMI 2023-12-09 12:03:00 31.74 kg/m2 [facility] Systolic blood pressure 2023-08-25 14:56:00 128 mm[Hg] [facility] Diastolic blood pressure 2023-08-25 14:56:00 89 mm[Hg] [facility] Heart rate 2023-08-25 14:56:00 83 /min [facility] Body temperature 2023-08-25 14:56:00 36.78 [place] [facility] Respiratory rate 2023-08-25 14:56:00 18 /min [facility] Body height 2023-08-25 14:56:00 154.9 cm [facility] Body weight 2023-08-25 14:56:00 71.351 kg [facility] BMI 2023-08-25 14:56:00 29.72 kg/m2 [facility] Systolic blood pressure 2023-06-02 16:38:00 123 mm[Hg] [facility] Diastolic blood pressure 2023-06-02 16:38:00 74 mm[Hg] [facility] Heart rate 2023-06-02 16:38:00 78 /min [facility] Body temperature 2023-06-02 16:38:00 36.67 [place] [facility] Respiratory rate 2023-06-02 16:38:00 18 /min [facility] Body height 2023-06-02 16:38:00 154.9 cm [facility] 2023-06-02 16:38:00 68.068 kg [facility] BMI 2023-06-02 16:38:00 28.35 kg/m2 [facility] Systolic blood pressure 2020-09-11 14:10:00 113 mm[Hg] [facility] Diastolic blood pressure 2020-09-11 14:10:00 75 mm[Hg] [facility] Heart rate 2020-09-11 14:10:00 67 /min [facility] Body temperature 2020-09-11 14:10:00 36.72 [place] [facility] Respiratory rate 2020-09-11 14:10:00 16 /min [facility] Body height 2020-09-11 14:10:00 154.9 cm [facility] Body weight 2020-09-11 14:10:00 61.689 kg [facility] BMI 2020-09-11 14:10:00 25.70 kg/m2 [facility] Systolic blood pressure 2020-08-28 12:52:00 118 mm[Hg] [facility] Diastolic blood pressure 2020-08-28 12:52:00 79 mm[Hg] [facility] Heart rate 2020-08-28 12:52:00 71 /min [facility] Body temperature 2020-08-28 12:52:00 36.56 Rosetta [facility] Respiratory rate 2020-08-28 12:52:00 16 /min [facility] Body height 2020-08-28 12:52:00 157.5 cm [facility] Body weight 2020-08-28 12:52:00 61.718 kg [facility] BMI 2020-08-28 12:52:00 24.89 kg/m2 [facility] Systolic blood pressure 2020-04-28 13:55:00 114 mm[Hg] [facility] Diastolic blood pressure 2020-04-28 13:55:00 78 mm[Hg] [facility] Heart rate 2020-04-28 13:55:00 87 /min [facility] Body temperature 2020-04-28 13:55:00 37.44 Rosetta [facility] Respiratory rate 2020-04-28 13:55:00 17 /min [facility] Body weight 2020-04-28 13:55:00 63.504 kg [facility] BMI 2020-04-28 13:55:00 25.61 kg/m2 [facility] Oxygen saturation in Arterial blood by Pulse oximetry 2020-04-28 13:55:00 100 /min [facility] Systolic blood pressure 2019-01-16 18:58:00 116 mm[Hg] [facility] Diastolic blood pressure 2019-01-16 18:58:00 78 mm[Hg] [facility] Heart rate 2019-01-16 18:58:00 74 /min [facility] Body temperature 2019-01-16 18:58:00 36.28 Rosetta [facility] Respiratory rate 2019-01-16 18:58:00 16 /min [facility] Body height 2019-01-16 18:58:00 157.5 cm [facility] Body weight 2019-01-16 18:58:00 62.596 kg [facility] BMI 2019-01-16 18:58:00 25.24 kg/m2 [facility] Procedures Procedure Date / Time Performed Performing Clinician Source POCT TEST 2024-03-16 14:12:00 Jere Grace [facility] GARDASIL 9 (HPV 9V) VACCINE 2023-12-09 12:38:05 Jere Grace [facility] POCT TEST 2023-12-09 12:17:00 Sanjay Jere [facility] GARDASIL 9 (HPV 9V) VACCINE 2023-08-25 14:58:29 Sherie Henderson [facility] CBC WITH DIFF 2023-06-02 17:18:00 Sherie Henderson [facility] HCV ANTIBODY 2023-06-02 17:18:00 Sherie Henderson [facility] GC & CHLAMYDIA AMPLIFIED ASSAY 2023-06-02 17:18:00 Sherie Henderson [facility] HIV 1/2 AG-AB WITH REFLEX 2023-06-02 17:18:00 Sherie Henderson [facility] TRICHOMONAS AMPLIFIED ASSAY 2023-06-02 17:18:00 Sherie Henderson [facility] SYPHILIS IGG/IGM 2023-06-02 17:18:00 Sherie Henderson [facility] GARDASIL 9 (HPV 9V) VACCINE 2023-06-02 16:50:11 Lizy Luz [facility] "RWSP MARISELA ONLY" FLU VACC(), 6+ MONTHS, IM, QUAD (FLUZONE/FLULAVAL/FLUAR IX) 2023-06-02 16:46:35 Sherie Henderson [facility] ASSIGNMENT OF BENEFITS 2023-06-02 16:21:26 Docto r Unassigned, [place] [facility] POCT TEST 2020-09-11 14:10:00 Conor Mccloud [facility] CONSENT/REFUSAL FOR DIAGNOSIS AND TREATMENT 2020-08-28 12:30:51 Doctor Unassigned, [place] [facility] ASSIGNMENT OF BENEFITS 2020-08-28 12:30:34 Docto r Unassigned, [place] [facility] NOTICE OF PRIVACY PRACTICES 2020-04-28 13:46:31 Doctor Unassigned, [place] [facility] CONSENT/REFUSAL FOR DIAGNOSIS AND TREATMENT 2020-04-28 13:46:21 Doctor Unassigned, [place] [facility] POCT TEST 2019-01-16 19:00:00 Arnaldo Luz [facility] ASSIGNMENT OF BENEFITS 2019-01-16 18:37:40 Docto r Unassigned, [place] [facility] Encounters Start Date/Time End Date/Time Encounter Type Admission Type Attending [facility] Care Department Encounter ID Source 2021-03-21 09:31:41 Emergency [facility] [id number] [facility] 2024-06-15 07:45:00 2024-06-15 07:45:00 Outpatient R SANJAYJERE [facility] [id number] [facility] 2024-03-16 08:45:00 2024-03-16 09:55:59 Office Visit Jere Grace [facility] SOLVENT PROCESS EXTRACTOR OPERATOR [facility] & CHILD [facility] 1.2.840.114 350.1.13.10 4.2.7.2.686 [id number] 107 [id number] [facility] 2024-03-16 08:45:00 2024-03-16 09:55:59 Outpatient R JERE GRACE [facility] [id number] [facility] 2024-03-16 07:45:00 2024-03-16 07:45:00 Outpatient R JERE GRACE [facility] [id number] [facility] 2023-12-22 00:00:00 2023-12-22 16:43:16 Telephone Jere Grace [facility] SOLVENT PROCESS EXTRACTOR OPERATOR [facility] CHILD [facility] 1.2.840.114 350.1.13.10 4.2.7.2.686 [id number] 107 [id number] [facility] 2023-12-09 06:45:00 2023-12-09 07:50:31 Outpatient R SANJAY JERE [facility] [id number] [facility] 2023-12-09 06:45:00 2023-12-09 07:50:31 Office Visit Jere Grace [facility] SOLVENT PROCESS EXTRACTOR OPERATOR [facility] & CHILD [facility] 1.2.840.114 350.1.13.10 4.2.7.2.686 [id number] [facility] 2023-12-08 10:30:00 2023-12-08 10:30:00 Outpatient R [facility] [id number] [facility] 2023-12-05 13:00:00 2023-12-05 13:00:00 Outpatient R LIZY LUZ [facility] [id number] [facility] 2023-11-25 13:30:00 2023-11-25 13:30:00 Outpatient R [facility] [id number] [facility] 2023-09-12 13:45:00 2023-09-12 13:45:00 Outpatient R JOSÉ MANUEL SOLIS [facility] [id number] [facility] 2023-08-25 10:00:00 2023-08-25 10:00:00 [facility] SOLVENT PROCESS EXTRACTOR OPERATOR [facility] & CHILD [facility] 1..840.114 350.1.13.10 4.2.7.2.686 [id number] 107 [id number] [facility] 2023-08-25 10:00:00 2023-08-25 09:54:47 Outpatient R SHERIE HENDERSON [facility] [id number] [facility] 2023-07-08 10:30:00 2023-07-08 10:30:00 Outpatient R [facility] [id number] [facility] 2023-07-06 14:15:00 2023-07-06 14:15:00 Outpatient R [facility] [id number] [facility] 2023-07-06 00:00:00 2023-07-06 00:00:00 Outpatient R SHERIE HENDERSON [facility] [id number] [facility] 2023-06-05 00:00:00 2023-06-05 00:00:00 Telephone Sherie Henderson [facility] SOLVENT PROCESS EXTRACTOR OPERATOR [facility] & CHILD [facility] ..840.114 350.1.13.10 4.2.7.2.686 [id number] 107 [id number] [facility] 2023-06-03 00:00:00 2023-06-03 00:00:00 Telephone Sherie Henderson [facility] SOLVENT PROCESS EXTRACTOR OPERATOR [facility] CHILD [facility] 1..840.114 350.1.13.10 4.2.7.2.686 [id number] [facility] 2023-06-02 10:45:00 2023-06-02 11:17:25 Outpatient R SHERIE HENDERSON [facility] [id number] [facility] 2023-06-02 10:45:00 2023-06-02 11:17:25 Office Visit Sherie Henderson [facility] SOLVENT PROCESS EXTRACTOR OPERATOR [facility] 1..840.114 350.1.13.10 4.2.7.2.686 [id number] [facility] 2023-06-02 00:00:00 2023-06-02 00:00:00 Orders Only Doctor Unassigned, [place] [facility] 1..840.114 350.1.13.10 4.2.7.2.686 [id number] [facility] 2023-03-22 00:00:00 2023-03-22 00:00:00 Outpatient GC_GCBZW_Ka diyala_S [facility] [id number] [facility] 2020-12-08 13:15:00 2020-12-08 13:15:00 Outpatient R [facility] [id number] [facility] 2020-11-19 10:30:00 2020-11-19 10:30:00 Outpatient R [facility] [id number] [facility] 2020-10-24 08:30:00 2020-10-24 08:30:00 Outpatient R LIZY LUZ [facility] [id number] [facility] 2020-09-30 07:45:00 2020-09-30 07:45:00 Outpatient R GHAZAL MCCLOUD [facility] [id number] [facility] 2020-09-25 07:46:58 2020-09-25 08:17:24 Video Production Intern Visit Lab, Miguel Angel-RmchLizy Arteaga [facility] SOLVENT PROCESS EXTRACTOR OPERATOR [facility] & CHILD [facility] 1.2.840.114 350.1.13.10 4.2.7.2.686 [id number] [facility] 2020-09-25 07:46:58 2020-09-25 08:17:24 Video Production Intern Visit Lab, Ang-Rmchp [facility] SOLVENT PROCESS EXTRACTOR OPERATOR [facility] & CHILD [facility] 1.2840.114 350.1.13.10 4.2.7.2.686 [id number] 2020-09-25 08:00:00 2020-09-25 08:00:00 Outpatient R [facility] [id number] [facility] 2020-09-11 08:47:04 2020-09-11 09:23:19 Office Visit Ghazal Mccloud [facility] SOLVENT PROCESS EXTRACTOR OPERATOR [facility] CHILD [facility] 1.2840.114 350.1.13.10 4.2.7.2.686 [id number] [facility] 2020-09-11 09:00:00 2020-09-11 09:00:00 Outpatient R GHAZAL MCCLOUD [facility] [id number] [facility] 2020-09-01 00:00:00 2020-09-01 00:00:00 Telephone Ghazal Mccloud [facility] SOLVENT PROCESS EXTRACTOR OPERATOR [facility] CHILD [facility] 1.2840.114 350.1.13.10 4.2.7.2.686 [id number] [facility] 2020-08-28 07:46:10 2020-08-28 08:45:35 Office Visit Ghazal Mccloud [facility] SOLVENT PROCESS EXTRACTOR OPERATOR [facility] 1.2840.114 350.1.13.10 4.2.7.2.686 [id number] [facility] 2020-08-28 07:45:00 2020-08-28 07:45:00 Outpatient R GHAZAL MCCLOUD [facility] [id number] [facility] 2020-08-28 00:00:00 2020-08-28 00:00:00 Orders Only Doctor Unassigned, [place] [facility] 1.2.840.114 350.1.13.10 4.2.7.2.686 [id number] [facility] 2020-04-28 07:56:00 2020-04-28 08:10:00 Emergency Bandar Michelle [facility] 1.2.840.114 350.1.13.10 4.2.7.2.686 [id number] [facility] 2020-04-28 00:00:00 2020-04-28 00:00:00 Orders Only Doctor Unassigned, [place] [facility] 1.2.840.114 350.1.13.10 4.2.7.2.686 [id number] [facility] 2019-01-16 13:40:36 2019-01-16 14:50:57 Office Visit Lizy Luz [facility] SOLVENT PROCESS EXTRACTOR OPERATOR [facility] 1.2.840.114 350.1.13.10 4.2.7.2.686 [id number] [facility] 2019-01-16 00:00:00 2019-01-16 00:00:00 Orders Only Doctor Unassigned, [place] [facility] 1.2840.114 350.1.13.10 4.2.7.2.686 [id number] [facility] Results Test Description Test Time Test Comments Results Result Co mments Source [facility] [id number] 12:18:00* Test Item Value Reference Range Interpretation Comme nts POCT PREG (test code = 1605) Negative On board controls acceptable with C Line (test code = 3574) Yes POCT PREG LOT # (test code = 3575) POCT PREG TEST DATE ( test code = 3576) [facility] - SYPHILIS [id number] 17:04:47* Test Item Value Reference Range Interpretation Comme nts Syphilis IgG/IgM (test code = 30121-6) Non-reactive Non-reactive DONATO (test code = DONATO) Non-reactive - No serologic evidence of T. pallidum infection. Cannot exclude incubating or early syphilis. Submit a second specimen in 2-4 weeks if syphilis is clinically suspected. Equivocal - Further testing to follow. Reactive - Further testing to follow. Lab Interpretation (test code = 19945-0) Normal [facility] - SYPHILIS [id number] 17:04:47* Test Item Value Reference Range Interpretation Comme nts Syphilis IgG/IgM (test code = 82117-8) Non-reactive Non-reactive DONATO (test code = DONATO) Non-reactive - No serologic evidence of T. pallidum infection. Cannot exclude incubating or early syphilis. Submit a second specimen in 2-4 weeks if syphilis is clinically suspected. Equivocal - Further testing to follow. Reactive - Further testing to follow. Lab Interpretation (test code = 54310-8) Normal [facility] 1/2 AG-AB WITH [id number] 06:49:22* Test Item Value Reference Range Interpretation Comme nts HIV Semi-quantitative (test code = 64410-1) 0.14 Negative DONATO (test code = DONATO) Non-reactive for HIV-1 antigen and HIV-1/HIV-2 antibodies. ?No laboratory evidence of HIV infection. ?Repeat in 2-4 weeks if acute HIV infection is suspected. [facility] 1/2 AG-AB WITH [id number] 06:49:22* Test Item Value Reference Range Interpretation Comme nts HIV Semi-quantitative (test code = 47187-5) 0.14 Negative DONATO (test code = DONATO) Non-reactive for HIV-1 antigen and HIV-1/HIV-2 antibodies. ?No laboratory evidence of HIV infection. ?Repeat in 2-4 weeks if acute HIV infection is suspected. [facility] [id number] 05:40:36* Test Item Value Reference Range Interpretation Comme nts HCV Ab (test code = 56076-0) Negative HCV Semi-Quantitative (test code = 44313-3) 0.04 [facility] [id number] 05:40:36* Test Item Value Reference Range Interpretation Comme nts HCV Ab (test code = 54422-1) Negative HCV Semi-Quantitative (test code = 69931-7) 0.04 [facility] WITH [id number] 05:39:45* Test Item Value Reference Range Interpretation Comme nts WBC (test code = 6690-2) 5.81 See_Comment [Automated [employer] ge] The system which generated this result transmitted reference range: 4.30 - 11.10 10*3/?L. The reference range was not used to interpret this result as normal/abnormal. RBC (test code = 789-8) 4.16 See_Comment [Automated [employer] ge] The system which generated this result transmitted reference range: 3.93 - 5.25 10*6/?L. The reference range was not used to interpret this result as normal/abnormal. HGB (test code = 718-7) 7.7 g/dL 11.6-15.0 L HCT (test code = 4544-3) 27.0 % 35.7-45.2 L MCV (test code = 787-2) 64.9 fL 80.6-95.5 L MCH (test code = 785-6) 18.5 pg 25.9-32.8 L MCHC (test code = 786-4) 28.5 g/dL 31.6-35.1 L RDW-SD (test code = 60153-9) 44.2 fL 39.0-49.9 RDW-CV (test code = 788-0) 19.7 % 12.0-15.5 H PLT (test code = 777-3) 304 See_Comment [Automated [employer] ge] The system which generated this result transmitted reference range: 166 - 358 10*3/?L. The reference range was not used to interpret this result as normal/abnormal. MPV (test code = 36089-8) Not Measured IPF % (test code = 2983906230) 5.3 % 1.3-7.7 Platelet count measured by fluorescence method. NRBC/100 WBC (test code = 9165903232) 0.0 See_Comment [Automated [employer] ssage] The system which generated this result transmitted reference range: 0.0 - 10.0 /100 WBCs. The reference range was not used to interpret this result as normal/abnormal. NRBC x10^3 (test code = 9925743243) See_Comment [Automated [employer] ge] The system which generated this result transmitted reference range: 10*3/?L. The reference range was not used to interpret this result as normal/abnormal. GRAN MAT (NEUT) % (test code = 770-8) 63.3 % IMM GRAN % (test code = 9490898346) 0.30 % LYMPH % (test code = 736-9) 26.0 % MONO % (test code = 5905-5) 7.4 % EOS % (test code = 713-8) 1.5 % BASO % (test code = 706-2) 1.5 % GRAN MAT x10^3(ANC) (test code = 7993068386) 3.67 10*3/uL 1.88-7.09 IMM GRAN x10^3 (test code = 4078758863) 0.00-0.06 LYMPH x10^3 (test code = 731-0) 1.51 10*3/uL 1.32-3.29 MONO x10^3 (test code = 742-7) 0.43 10*3/uL 0.33-0.92 EOS x10^3 (test code = 711-2) 0.09 10*3/uL 0.03-0.39 BASO x10^3 (test code = 704-7) 0.09 10*3/uL 0.01-0.07 H SCHISTOCYTES (test code = 800-3) 1+ A Lab Interpretation (test code = 60395-9) Abnormal [facility] WITH [id number] 05:39:45* Test Item Value Reference Range Interpretation Comme nts WBC (test code = 6690-2) 5.81 See_Comment [Automated [employer] ge] The system which generated this result transmitted reference range: 4.30 - 11.10 10*3/?L. The reference range was not used to interpret this result as normal/abnormal. RBC (test code = 789-8) 4.16 See_Comment [Automated [employer] ge] The system which generated this result transmitted reference range: 3.93 - 5.25 10*6/?L. The reference range was not used to interpret this result as normal/abnormal. HGB (test code = 718-7) 7.7 g/dL 11.6-15.0 L HCT (test code = 4544-3) 27.0 % 35.7-45.2 L MCV (test code = 787-2) 64.9 fL 80.6-95.5 L MCH (test code = 785-6) 18.5 pg 25.9-32.8 L MCHC (test code = 786-4) 28.5 g/dL 31.6-35.1 L RDW-SD (test code = 51663-5) 44.2 fL 39.0-49.9 RDW-CV (test code = 788-0) 19.7 % 12.0-15.5 H PLT (test code = 777-3) 304 See_Comment [Automated [employer] ge] The system which generated this result transmitted reference range: 166 - 358 10*3/?L. The reference range was not used to interpret this result as normal/abnormal. MPV (test code = 57722-4) Not Measured IPF % (test code = 4934251185) 5.3 % 1.3-7.7 Platelet count measured by fluorescence method. NRBC/100 WBC (test code = 5874486405) 0.0 See_Comment [Automated [employer] ssage] The system which generated this result transmitted reference range: 0.0 - 10.0 /100 WBCs. The reference range was not used to interpret this result as normal/abnormal. NRBC x10^3 (test code = 3064551219) See_Comment [Automated [employer]] The system which generated this result transmitted reference range: 10*3/?L. The reference range was not used to interpret this result as normal/abnormal. GRAN MAT (NEUT) % (test code = 770-8) 63.3 % IMM GRAN % (test code = 7265888234) 0.30 % LYMPH % (test code = 736-9) 26.0 % MONO % (test code = 5905-5) 7.4 % EOS % (test code = 713-8) 1.5 % BASO % (test code = 706-2) 1.5 % GRAN MAT x10^3(ANC) (test code = 1532479567) 3.67 10*3/uL 1.88-7.09 IMM GRAN x10^3 (test code = 5002598070) 0.00-0.06 LYMPH x10^3 (test code = 731-0) 1.51 10*3/uL 1.32-3.29 MONO x10^3 (test code = 742-7) 0.43 10*3/uL 0.33-0.92 EOS x10^3 (test code = 711-2) 0.09 10*3/uL 0.03-0.39 BASO x10^3 (test code = 704-7) 0.09 10*3/uL 0.01-0.07 H SCHISTOCYTES (test code = 800-3) 1+ A Lab Interpretation (test code = 52779-9) Abnormal [facility] [id number] 14:11:00* Test Item Value Reference Range Interpretation Comme nts POCT PREG (test code = 1605) Negative On board controls acceptable with C Line (test code = 3574) Yes POCT PREG LOT # (test code = 3575) POCT PREG TEST DATE ( test code = 3576) [facility] [id number] 14:11:00* Test Item Value Reference Range Interpretation Comme nts POCT PREG (test code = 1605) Negative On board controls acceptable with C Line (test code = 3574) Yes POCT PREG LOT # (test code = 3575) POCT PREG TEST DATE ( test code = 3576) [facility] [id number] 19:00:00* Test Item Value Reference Range Interpretation Comme nts POCT PREG (test code = 1605) Negative On board controls acceptable with C Line (test code = 3574) Yes POCT PREG LOT # (test code = 3575) POCT PREG TEST DATE ( test code = 3576) [facility] [id number] 19:00:00* Test Item Value Reference Range Interpretation Comme nts POCT PREG (test code = 1605) Negative On board controls acceptable with C Line (test code = 3574) Yes POCT PREG LOT # (test code = 3575) POCT PREG TEST DATE ( test code = 3576) [facility] Notes Date/Time Note Provider Source 2023-12-22 16:42:25 Patient informed of results from 12/08, verbalized understanding. [facility] 2023-12-22 16:32:58 Pt is requesting call back about results, Please call [phone] (home) MELISSA Rojas [facility] 2023-06-07 08:19:37 Notified patient of lab results. Pt notified of need for USG due to low hemoglobin. Radiology will contact patient with appointment information. Pt verbalized understanding. HAZEL ROGERS RN 06/07/2023 8:20 AM TER AND PAPERHANGER APPRENTICE Hazel Rogers RN [facility] 2023-06-05 23:00:37 Please call patient and let her know I ordered pelvic ultrasound due to low hgb and all other testing is negative. [facility] 2023-06-03 09:13:42 Notified patient of lab results- anemia. Discussed hemoglobin level and need for iron medication. Rx sent to pharmacy on file. Pt instructed to buy OTC iron if rx not covered by insurance. Pt to start iron immediately and f/u with PCP for further testing and management. Pt verbalized understanding. RERAS Rogers RN [facility] 2023-06-03 07:53:26 Please call patient and let her know her hgb is low and I erx iron supplement. If this is not covered, she can take iron OTC BID. She needs to follow up with PCP for further testing for any underlying cause. This possibly be caused by menorrhagia and restarted depo this week but should still follow up with PCP. [facility]
[2024-07-19] MEDS ORDERED: ONDANSETRON 4 MG (ODT) TAB ONE (08:32)
[2024-07-19 09:00] LABS: Influenza A Ag Negative; Influenza B Ag Negative; SARS-CoV-2 Antigen Rapid Res Negative (Negative)
--- NOTE | 2024-07-19 10:03 | RAD REPORT ---
EXAMINATION: ONE VIEW CHEST XR CLINICAL INDICATION: Female, 33 years old.,COUGH TECHNIQUE: Frontal chest projection is submitted. Examination is limited by patient positioning and t echnique. COMPARISON: 09/13/2022 FINDINGS: The lungs are well inflated and clear. No pneumothorax or sizable effusion. The heart is normal in s ize. Mediastinal contours are unremarkable. IMPRESSION: No acute intrathoracic abnormalities.
--- NOTE | 2024-07-19 10:12 | EDPHYS ---
Physician Documentation [facility] Name: Ember Clark Age: 33 yrs Sex: Female : 1990 Arrival Date: 07/19/2024 Time: 08:09 Bed 12 Private MD: ED Physician Ru Parekh HPI: 07/19 08:32 This 33 yrs old Black Female presents to ER via Ambulatory with complaints of Flu sp3 Symptoms. 08:32 33-year-old female with history of anemia now presents to the ED with chief complaint sp3 sore throat, body aches, fever, vomiting and now mild diarrhea as well. Symptoms been going on for the last 2 to 3 days. She denies any other symptoms including headache, neck pain, chest pain, shortness of breath, back pain, muscle cramps, COLLET MAKER symptoms, symptoms, known sick contacts, travel history, or any other signs or symptoms on ROS at this time.. Historical: - Allergies: 08:28 No Known Drug Allergies; hb - Home Meds: 08:28 None [Active]; hb - PMHx: 08:28 Anemia; hb - PSHx: 08:28 section; hb - Immunization history:: Adult Immunizations up to date. - Infectious Disease History:: Denies. - Social history:: Smoking status: Reported history of juuling and/or vaping. ROS: 08:33 Constitutional: Negative for fever, chills, and weight loss, Eyes: Negative for injury, sp3 pain, redness, and discharge, Neck: Negative for injury, pain, and swelling, Cardiovascular: Negative for chest pain, palpitations, and edema, Abdomen/GI: Negative for abdominal pain, nausea, vomiting, diarrhea, and constipation, Back: Negative for injury and pain, MS/Extremity: Negative for injury and deformity, Skin: Negative for injury, rash, and discoloration, Neuro: Negative for headache, weakness, numbness, tingling, and seizure, Psych: Negative for depression, anxiety, suicide ideation, homicidal ideation, and hallucinations, Allergy/Immunology: Negative for hives, rash, and allergies, Endocrine: Negative for neck swelling, polydipsia, polyuria, polyphagia, and marked weight changes, 08:33 All other systems are negative, Exam: 08:33 Constitutional: This is a well developed, well nourished patient who is awake, alert, sp3 and in no acute distress. Head/Face: Normocephalic, atraumatic. Eyes: Pupils equal round and reactive to light, extra-ocular motions intact. Lids and lashes normal. Conjunctiva and sclera are non-icteric and not injected. Cornea within normal limits. Periorbital areas with no swelling, redness, or edema. Neck: Trachea midline, no thyromegaly or masses palpated, and no cervical lymphadenopathy. Supple, full range of motion without nuchal rigidity, or vertebral point tenderness. No Meningismus. Chest/axilla: Normal chest wall appearance and motion. Nontender with no deformity. No lesions are appreciated. Cardiovascular: Regular rate and rhythm with a normal S1 and S2. No gallops, murmurs, or rubs. Normal PMI, no JVD. No pulse deficits. Respiratory: Lungs have equal breath sounds bilaterally, clear to auscultation and percussion. No rales, rhonchi or wheezes noted. No increased work of breathing, no retractions or nasal flaring. Abdomen/GI: Soft, non-tender, with normal bowel sounds. No distension or tympany. No guarding or rebound. No evidence of tenderness throughout. Back: No spinal tenderness. No costovertebral tenderness. Full range of motion. Skin: Warm, dry with normal turgor. Normal color with no rashes, no lesions, and no evidence of cellulitis. MS/ Extremity: Pulses equal, no cyanosis. Neurovascular intact. Full, normal range of motion. Neuro: Awake and alert, GCS 15, oriented to person, place, time, and situation. Cranial nerves II-XII grossly intact. Motor strength 5/5 in all extremities. Sensory grossly intact. Cerebellar exam normal. Normal gait. Psych: Awake, alert, with orientation to person, place and time. Behavior, mood, and affect are within normal limits. 08:33 ENT: Mild erythema noted. Rhinorrhea also present with dry cough.. Vital Signs: 08:26 BP 136 / 93; Pulse 94; Resp 18; Temp 98.9(O); Pulse Ox 99% on R/A; Weight 77.11 kg; hb Height 5 ft. 2 in. ; Pain 6/10; 08:41 Temp 99.7(O); hb 08:26 Body Mass Index 31.09 (77.11 kg, 157.48 cm) hb 08:26 Pain Scale: Adult hb MDM: 08:12 Medical Screening Exam initiated sp3 08:34 Data reviewed: vital signs, nurses notes, lab test result(s), radiologic studies. ED sp3 course: 33-year-old female with history of anemia now with URI symptoms. Differential diagnosis includes viral illness, COVID-19, influenza, strep pharyngitis, bronchitis, pneumonia, other GI process. Vital signs are normal and patient is in no acute distress. Workup will include general swabs, chest x-ray, ondansetron ODT and p.o. challenge. Layering IV fluids and other lab work if indicated. Probable discharge home on any indicated pharmacologic's.. 10:10 ED course: Full workup negative including chest x-ray. Patient not tolerating p.o. We sp3 will discharge home with diagnosis of viral illness and home on diclofenac and ondansetron.. 07/19 08:13 Order name: COVID-19 Ag + Flu A+B Ag; Complete Time: 09:22 sp3 07/19 08:13 Order name: Group A Streptococcus Rapid sp3 07/19 09:03 Order name: Throat Culture EDMS 07/19 08:34 Order name: CXR XRAY; Complete Time: 10:04 sp3 07/19 08:32 Order name: PO challenge; Complete Time: 08:41 sp3 Administered Medications: 08:41 Drug: Ondansetron Oral Disintegrating Tablet Oral Disintegrating Tablet 4 mg PO once hb Route: PO; 09:15 Follow up: Response: No adverse reaction hb Disposition Summary: 07/19/24 10:11 Discharge Ordered Notes: Location: Home sp3 Condition: Stable sp3 Diagnosis - Viral illness, vomiting sp3 Followup: sp3 - With: Private Physician - When: Upon discharge from the Emergency Department - Reason: Continuance of care Discharge Instructions: - Discharge Summary Sheet sp3 - Viral Illness, Adult sp3 Forms: - Work release form hb - Medication Reconciliation Form sp3 - Antibiotic Education sp3 - Prescription Opioid Use sp3 - Patient Portal Instructions sp3 - Leadership Thank You Letter sp3 Prescriptions: - Diclofenac Sodium 75 mg Oral Tablet Sustained Release - take 1 tablet ORAL route 2 times per day; 30 tablet; Refills: 0, Product sp3 Selection Permitted - ondansetron 8 mg Oral Tablet,disintegrating - take 1 tablet ORAL route every 12 hours; 15 tablet; Refills: 0, Product sp3 Selection Permitted Signatures: Dispatcher [employer] EDMarta Copeland RN RN hb Patel, Setul, MD MD sp3 Corrections: (The following items were deleted from the chart) 08:13 08:13 COVID-19 Ag + Flu A+B Ag+I.LAB.BRZ ordered. EDMS EDMS 08:13 08:13 Group A Streptococcus Rapid Sc+I.LAB.BRZ ordered. EDMS EDMS 08:28 08:28 Social history: Smoking status: Patient denies any tobacco usage or history of. hbhb
--- NOTE | 2024-07-19 10:12 | ER ---
Nurse's Notes [facility] Name: Ember Clark Age: 33 yrs Sex: Female : 1990 Arrival Date: 07/19/2024 Time: 08:09 Bed 12 Private MD: Diagnosis: Viral illness, vomiting Presentation: 07/19 08:26 Chief complaint: Body aches, headache, sore throat, subjective fever, and N/V/D x 2 hb days. Not tolerating fluids. Coronavirus screen: Client presents with at least one sign or symptom that may indicate coronavirus-19. Provider contacted for isolation considerations. Ebola Screen: No symptoms or risks identified at this time. Initial Sepsis Screen: Does the patient meet any 2 criteria? No. Patient's initial sepsis screen is negative. Does the patient have a suspected source of infection? No. Patient's initial sepsis screen is negative. Risk Assessment: Do you want to hurt yourself or someone else? Patient reports no desire to harm self or others. Onset of symptoms was July 18, 2024. 08:26 Method Of Arrival: Ambulatory hb 08:26 Acuity: MIKKI 3 hb Historical: - Allergies: 08:28 No Known Drug Allergies; hb - Home Meds: 08:28 None [Active]; hb - PMHx: 08:28 Anemia; hb - PSHx: 08:28 section; hb - Immunization history:: Adult Immunizations up to date. - Infectious Disease History:: Denies. - Social history:: Smoking status: Reported history of juuling and/or vaping. Screenin:45 [facility] ED Fall Risk Assessment (Adult) History of falling in the last 3 months, hb including since admission No falls in past 3 months (0 pts) Confusion or Disorientation No (0 pts) Intoxicated or Sedated No (0 pts) Impaired Gait No (0 pts) Mobility Assist Device Used No (0 pt) Altered Elimination No (0 pt) Score/Fall Risk Level 0 - 2 = Low Risk Oriented to surroundings, Maintained a safe environment, Educated pt \T\ family on fall prevention, incl call for assistance when getting out of bed. Abuse screen: Denies threats or abuse. Denies injuries from another. Nutritional screening: No deficits noted. Tuberculosis screening: No symptoms or risk factors identified. Assessment: 09:00 General: Appears in no apparent distress. ill, Behavior is calm, cooperative. Pain: hb Pain currently is 6 out of 10 on a pain scale. Neuro: Level of Consciousness is awake, alert, obeys commands, Oriented to person, place, time, situation, Reports headache. Cardiovascular: Patient's skin is warm and dry. Respiratory: Respiratory effort is even, unlabored, Respiratory pattern is regular, symmetrical. GI: Reports nausea. : No signs and/or symptoms were reported regarding the genitourinary system. EENT: Reports sinus congestion . Derm: Skin is pink, warm \T\ dry. Musculoskeletal: Reports body aches. 10:00 Reassessment: Patient appears in no apparent distress at this time. Patient and/or hb family updated on plan of care and expected duration. Pain level reassessed. Patient is alert, oriented x 3, equal unlabored respirations, skin warm/dry/pink. Vital Signs: 08:26 BP 136 / 93; Pulse 94; Resp 18; Temp 98.9(O); Pulse Ox 99% on R/A; Weight 77.11 kg; hb Height 5 ft. 2 in. ; Pain 6/10; 08:41 Temp 99.7(O); hb 08:26 Body Mass Index 31.09 (77.11 kg, 157.48 cm) hb 08:26 Pain Scale: Adult hb ED Course: 08:11 Patient arrived in ED. im 08:12 Ru Parekh MD is Attending Physician. sp3 08:20 Marta Jordan, RN is Primary Nurse. hb 08:28 Triage completed. hb 08:28 Arm band placed on. hb 08:36 Group A Streptococcus Rapid Sent. rk3 08:36 COVID-19 Ag + Flu A+B Ag Sent. rk3 08:45 Patient has correct armband on for positive identification. Bed in low position. Call hb light in reach. Provided Education on: tests, result times . 09:13 CXR XRAY In Process Unspecified. EDMS 10:30 No provider procedures requiring assistance completed. Patient did not have IV access hb during this emergency room visit. Administered Medications: 08:41 Drug: Ondansetron Oral Disintegrating Tablet Oral Disintegrating Tablet 4 mg PO once hb Route: PO; 09:15 Follow up: Response: No adverse reaction hb Medication: 10:30 VIS not applicable for this client. hb Outcome: 10:11 Discharge ordered by sp3 10:35 Discharged to home ambulatory, 10:35 Condition: stable 10:35 Discharge instructions given to patient, Instructed on discharge instructions, follow up and referral plans. medication usage, Demonstrated understanding of instructions, follow-up care, medications, 10:41 Patient left the ED. hb Signatures: Dispatcher [employer] EDMatra Copeland RN RN Ru Parekh MD MD sp3 Paieg Alexander Rozana rk3 Corrections: (The following items were deleted from the chart) 08:28 08:28 Social history: Smoking status: Patient denies any tobacco usage or history of. hbhb
[2024-07-19 11:13] VITALS: BP 136/93; O2SAT 99
[2024-07-19 11:14] VITALS: TEMP 99.7
== END 2024-07-19 10:41 | disposition home or self-care (01) ==
LOC: ER 08:09
DX: B34.9 Viral infection, unspecified (principal); Z11.52 Encounter for screening for COVID-19
CPT/HCPCS: 87070; 36415; 71045; 99283; 87428; Q0162

== ENCOUNTER 2025-02-21 06:56 | Emergency (ER) | payer OTHER ==
[2025-02-21 08:05] LABS: Influenza A Ag Negative; Influenza B Ag Negative; SARS-CoV-2 Antigen Rapid Res Negative (Negative)
--- NOTE | 2025-02-21 08:19 | EDPHYS ---
Physician Documentation [facility] Name: Ember Clark Age: 34 yrs Sex: Female : 1990 Arrival Date: 02/21/2025 Time: 06:56 Bed IW1 Private MD: ED Physician Gil Galindo HPI: 02/21 07:08 This 34 yrs old Black Female presents to ER via Unassigned with complaints of Flu rn Symptoms, Anxiety. 07:08 The patient or guardian reports flu symptoms. Onset: The symptoms/episode rn began/occurred this morning. Severity of symptoms: At their worst the symptoms were mild, in the emergency department the symptoms are unchanged. Modifying factors: The symptoms are alleviated by nothing, the symptoms are aggravated by nothing. The patient has experienced similar episodes in the past. The patient has not recently seen a physician. Patient reports woke up feeling sick, reports congestion and runny nose with nonproductive cough. No shortness of breath or chest pain. States her work made her come to get checked for flu and rule out flu. No chronic lung issues. No vomiting or diarrhea. States would not of come if her work did not make her.. Historical: - Allergies: 07:09 No Known Allergies; bp - PMHx: 07:09 None; bp - Immunization history:: Adult Immunizations up to date. - Infectious Disease History:: Denies. - Social history:: Smoking status: unknown. - Family history:: not pertinent. - Hospitalizations: : No recent hospitalization is reported. ROS: 07:08 Constitutional: Negative for fever, chills, and weight loss, Eyes: Negative for injury, rn pain, redness, and discharge, ENT: Positive for cough and congestion Cardiovascular: Negative for chest pain, palpitations, and edema, Respiratory: Positive for cough, negative for shortness of breath Abdomen/GI: Negative for abdominal pain, nausea, vomiting, diarrhea, and constipation, MS/Extremity: Negative for injury and deformity, Skin: Negative for injury, rash, and discoloration, Neuro: Negative for headache, weakness, numbness, tingling, and seizure, Exam: 07:08 Constitutional: This is a well developed, well nourished patient who is awake, alert, rn and in no acute distress. Appears annoyed and does not want to cooperate with history or physical ENT: No pharyngeal erythema, no stridor, no oral lesions Cardiovascular: Regular rate and rhythm. No pulse deficits. Respiratory: No increased work of breathing, no retractions or nasal flaring. Vital Signs: 07:08 BP 132 / 90; Pulse 72; Resp 16; Temp 97.2; Pulse Ox 100% ; bp MDM: 07:00 Medical Screening Exam initiated rn 08:17 Differential Diagnosis: Influenza Upper Respiratory Infection Viral Syndrome. 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 Counseling: I had a detailed discussion with the patient and/or guardian regarding the historical points, exam findings, and any diagnostic results supporting the discharge/admit diagnosis, lab results, the need for outpatient follow up, to return to the emergency department if symptoms worsen or persist or if there are any questions or concerns that arise at home. Special discussion: I discussed with the patient/guardian in detail that at this point there is no indication for admission to the hospital. It is understood, however, that if the symptoms persist or worsen the patient needs to return immediately for re-evaluation. 02/21 07:06 Order name: COVID-19 Ag + Flu A+B Ag; Complete Time: 08:16 rn Administered Medications: No medications were administered Disposition Summary: 02/21/25 08:18 Discharge Ordered Notes: Location: Home rn Problem: new rn Symptoms: are unchanged rn Condition: Stable rn Diagnosis - Viral illness rn - Cough rn Followup: rn - With: Private Physician - When: As needed - Reason: Recheck today's complaints, Re-evaluation by your physician Discharge Instructions: - Discharge Summary Sheet rn - Cough, Adult rn - Viral Illness, Adult rn Forms: - Medication Reconciliation Form rn - Antibiotic erisa attorney - Prescription Opioid Use rn - Patient Portal Instructions rn - Leadership Thank You Letter rn - Work release form bp Signatures: Dispatcher [employer] EDMS Gil Galindo MD MD rn Peltier, Brian, RN RN bp Corrections: (The following items were deleted from the chart) 07:10 07:08 Patient reports woke up feeling sick, reports congestion and runny nose with rn nonproductive cough. No shortness of breath or chest pain. States her work made her come to get checked for flu and rule out flu. No chronic lung issues. No vomiting or diarrhea.. rn
--- NOTE | 2025-02-21 08:19 | ER ---
Nurse's Notes [facility] Name: Ember Clark Age: 34 yrs Sex: Female : 1990 Arrival Date: 02/21/2025 Time: 06:56 Bed IW1 Private MD: Diagnosis: Viral illness;Cough Presentation: 02/21 07:08 Chief complaint: Patient states: SENT BY WORK TO R/O FLU, COUGH AND MALAISE SINCE AM. bp Coronavirus screen: At this time, the client does not indicate any symptoms associated with coronavirus-19. Ebola Screen: No symptoms or risks identified at this time. Initial Sepsis Screen: Does the patient meet any 2 criteria? No. Patient's initial sepsis screen is negative. Does the patient have a suspected source of infection? No. Patient's initial sepsis screen is negative. Risk Assessment: Do you want to hurt yourself or someone else? Patient reports no desire to harm self or others. Onset of symptoms was February 21, 2025. 07:08 Method Of Arrival: Ambulatory bp 07:08 Acuity: MIKKI 4 bp Triage Assessment: 07:09 General: Appears in no apparent distress. Behavior is calm, cooperative, appropriate bp for age. Pain: Denies pain. EENT: Reports nasal congestion. Neuro: No deficits noted. Cardiovascular: No deficits noted. Respiratory: Reports cough that is. GI: No signs and/or symptoms were reported involving the gastrointestinal system. : No signs and/or symptoms were reported regarding the genitourinary system. Derm: No deficits noted. Musculoskeletal: No deficits noted. Historical: - Allergies: 07:09 No Known Allergies; bp - PMHx: 07:09 None; bp - Immunization history:: Adult Immunizations up to date. - Infectious Disease History:: Denies. - Social history:: Smoking status: unknown. - Family history:: not pertinent. - Hospitalizations: : No recent hospitalization is reported. Screenin:10 [facility] ED Fall Risk Assessment (Adult) History of falling in the last 3 months, bp including since admission No falls in past 3 months (0 pts) Confusion or Disorientation No (0 pts) Intoxicated or Sedated No (0 pts) Impaired Gait No (0 pts) Mobility Assist Device Used No (0 pt) Altered Elimination No (0 pt) Score/Fall Risk Level 0 - 2 = Low Risk Oriented to surroundings. Abuse screen: Denies threats or abuse. Denies injuries from another. Nutritional screening: No deficits noted. Tuberculosis screening: No symptoms or risk factors identified. Assessment: 07:10 General: SEE TRIAGE NOTE. bp Vital Signs: 07:08 BP 132 / 90; Pulse 72; Resp 16; Temp 97.2; Pulse Ox 100% ; bp ED Course: 06:58 Patient arrived in ED. im 07:00 Gil Galindo MD is Attending Physician. rn 07:08 Bryan Bower, RN is Primary Nurse. bp 07:09 Triage completed. bp 07:09 Arm band placed on. bp 07:10 Patient has correct armband on for positive identification. bp 07:10 COVID swab sent to lab. Flu and/or RSV swab sent to lab. bp 08:45 No provider procedures requiring assistance completed. Patient did not have IV access bp during this emergency room visit. Administered Medications: No medications were administered Medication: 07:10 VIS not applicable for this client. bp Outcome: 08:18 Discharge ordered by . rn 08:45 Discharged to home ambulatory, bp 08:45 Condition: stable 08:45 Discharge instructions given to patient, Instructed on discharge instructions, follow up and referral plans. Demonstrated understanding of instructions, follow-up care, 08:45 Patient left the ED. bp Signatures: Gil Galindo MD MD rn Bryan Bower, NARA RN bp Paige Alexander im
[2025-02-21 09:01] VITALS: BP 132/90; TEMP 97.2; O2SAT 100
== END 2025-02-21 08:45 | disposition home or self-care (01) ==
LOC: ER 06:56
DX: B34.9 Viral infection, unspecified (principal); Z11.52 Encounter for screening for COVID-19
CPT/HCPCS: 36415; 87428; 99283